=== PATIENT | male | born 1940 | race Caucasian/White ===

== ENCOUNTER 2017-09-13 12:11 | Day surgery (SDC) | payer MEDICARE ==
[2017-09-08 15:32] VITALS: BMI 27.8
[~2017-09-13 12:11] MED LIST: LIDOCAINE 1% 20 ML VIAL (10MG/ML) FOR IV START INTRADERMA PRN; MIDAZOLAM 2 MG/2 ML VIAL IV PRN
[2017-09-13 14:02] VITALS: RESP 16; TEMP 97.7
[2017-09-13] MEDS: LACTATED RINGERS 1,000 ML IV SCH ×2 (14:02→14:45)
[2017-09-13] MEDS ORDERED: LIDOCAINE 1% 20 ML VIAL (10MG/ML) FOR IV START INTRADERMA ONE (14:02)
[2017-09-13] MEDS ORDERED: ePHEDrine SULFATE/0.9% NACL/PF 50 MG/5 ML SYRINGE IV ONE (14:47)
[2017-09-13] MEDS ORDERED: PROPOFOL 10 MG/ML 20 ML VIAL IV ONE (14:47)
--- NOTE | 2017-09-13 15:27 | P.PCN ---
Date of Procedure: 09/13/17 Procedure(s) Performed: Procedure: Colonoscopy and polypectomy. Preoperative diagnosis: Screening for neoplasia patient has history of polyps. Postoperative diagnosis: 1. Sigmoid diverticulosis with no evidence of acute diverticulitis or strictures. 2. Flat benign appearing polyp around the hepatic flexure snared and removed piecemeal but no large polyps or cancer. Preparation: HalfLytely prep. Sedation: Was provided by anesthesia. Brief clinical history: The patient is a 77-year-old male who is scheduled for this evaluation for screening for neoplasia because of history of polyps. His last exam was more than 10 years ago. The patient has no abdominal complaints, bleeding or anemia. This would be his third exam. Procedure: With the patient on his left lateral decubitus position and after informed consent and adequate sedation, the perianal area was inspected and it did not show any fissures or fistulas. There were no masses felt on digital rectal examination. The Olympus CFQ 160L scope was then inserted in the rectum in the usual fashion and advanced to the cecum. There were multiple diverticular orifices seen scattered in the sigmoid with no evidence of acute diverticulitis or strictures. The mucosa appeared healthy. Around the hepatic flexure, there was a benign looking flat polypoid area measuring around 3 cm in largest dimension. I was able to remove it piecemeal with good hemostasis. No other polyps or tumors were seen. I retroflexed the endoscope in the rectum before the endoscope was withdrawn. The patient tolerated the procedure well. Plan: The patient was reassured. Will await pathology results and make further plans based on his course and pathology results. Discussed dietary measures. He will follow up with you as planned.
[2017-09-13 15:41] VITALS: PULSE 72
[2017-09-13 15:53] VITALS: BP 109/68
== END 2017-09-13 16:01 | disposition home or self-care (01) ==
LOC: ORWHC2ENDO 12:11
DX: Z12.11 Encounter for screening for malignant neoplasm of colon (principal); K63.5 Polyp of colon; K57.30 Diverticulosis of large intestine without perforation or abscess without bleeding; Z86.010 Personal history of colon polyps; I10 Essential (primary) hypertension; E78.5 Hyperlipidemia, unspecified; Z85.828 Personal history of other malignant neoplasm of skin; F17.200 Nicotine dependence, unspecified, uncomplicated; N40.0 Benign prostatic hyperplasia without lower urinary tract symptoms; Z79.82 Long term (current) use of aspirin; Z79.899 Other long term (current) drug therapy
CPT/HCPCS: 88305; 45385; J2704

== ENCOUNTER → 2018-04-13 | Outpatient (CLI) | payer MEDICARE ==
--- NOTE | 2018-04-13 10:28 | CT ---
EXAMINATION TYPE: CT angio thor/abd pel aorta DATE OF EXAM: 04/13/2018 COMPARISON: 03/22/2017 and 03/02/2016 HISTORY: Pt stated annual scan for AAA w/o mention of rupture CT DLP: 1578.20 mGycm. Automated Exposure Control for Dose Reduction was Utilized. CONTRAST: CT scan of the thorax, abdomen and pelvis is performed with IV Contrast, patient injected with 80 mL of Isovue 370. FINDINGS: VASCULATURE: The unenhanced images demonstrate no evidence of intramural hematoma. Aortic root is not dilated measuring up to 3.4 cm ascending thoracic aorta is within normal limits measuring 3.3 cm. Th ere is a conventional three-vessel branch pattern of the aortic arch. There is tortuosity of the desc ending thoracic aorta. The upper thoracic aorta is within normal limits measuring 3.1 cm with moderat e atherosclerosis. However just distal to the inferior left pulmonary vein the descending thoracic ao rta takes a sharp turn medially and demonstrates mild aneurysmal dilatation measuring 4.0 cm. At the diaphragmatic hiatus the descending thoracic aorta measures up to 5.8 cm in transverse dimension and 5.0 cm in anterior posterior dimension, and increased from the prior exam where this measured approxi mately 5.5 cm x 4.8 cm. Within the aorta at this location there is moderate to severe right posterior lateral eccentric noncalcific mural plaquing. Just distal to the superior mesenteric artery before the origin of the endograft at the level of the renal arteries there begins a bilobed saccular abdominal aortic aneurysm measuring up to 5.7 x 5.5 cm . When measured in a similar fashion and a similar location on the prior exam there is no interval ch carmen. Just distal to this begins an aortic endograft appearing normal in caliber with contrast throug hout. No evidence of distal occlusion is seen although there is a diminutive caliber of the left inte rnal iliac artery and severe atherosclerosis of the infrarenal abdominal aorta and its branches. LUNGS: The lungs are grossly clear, there is no concerning parenchymal mass or nodule identified. T here is no pleural effusion or pneumothorax seen. The tracheobronchial tree is patent. MEDIASTINUM: There are no greater than 1 cm hilar or mediastinal lymph nodes. No pericardial effusi on is seen. Severe coronary artery calcifications are seen, marker of coronary artery disease. LIVER/GB: There is 7 mm arterial enhancing lesion within the hepatic dome in segment 7 on image 52 un changed from the prior likely representing a flash filling hemangioma. Linear subcapsular vague enhan cement is also seen on image 59 posterior medially likely related to an arterial portal shunt, not pr esent on the prior. Remainder of the liver in the angiographic phase is grossly unremarkable. Angiogr aphic phase does limit evaluation for masses. No masses are seen in the delayed portal venous phase o ther than the previously mentioned probable hemangioma. Cholelithiasis is present. PANCREAS: No significant abnormality is seen. SPLEEN: No significant abnormality is seen. ADRENALS: There is similar thickening of the adrenal glands, left greater than right without focal no dularity. Adrenals maintain their normal adreniform shape therefore finding is likely related to to b enign adrenal gland hyperplasia. KIDNEYS: Kidneys enhance and excrete symmetrically without hydronephrosis. BOWEL: Descending duodenal diverticulum is incidentally noted. LYMPH NODES: No greater than 1cm abdominal or pelvic lymph nodes are appreciated. OSSEOUS STRUCTURES: Similar-appearing lucent lesion within the left acetabulum could be degenerative. Scattered punctate sclerotic foci likely represent bone islands. Degenerative changes of the spine a re noted. OTHER: Right lateral eccentric urinary bladder wall thickening measures up to 6 mm on series 9 image 114 and is also seen on additional images. There is nodular impression on the inferior urinary bladde r by an enlarged and heterogenous prostate gland. On liver windows on series 9 image 119 and 120 ther e is hyperemia/enhancement of the lateral base of the prostate gland. IMPRESSION: 1. Increasing size of the descending thoracic aortic aneurysm at the diaphragmatic hiatus measuring 5 .8 cm and previously measuring 5.5 cm. 2. Stable bilobed abdominal aortic aneurysm measuring up to 5.7 cm when measured in a similar fashion to the prior exam for comparison. No evidence of endoleak. 2. Enhancing focus within the left lateral prostate gland base. Correlate with PSA. MRI prostate coul d also be considered. 3. Right eccentric urinary bladder wall thickening. Urinalysis is recommended. If there is further co ncern direct visualization could be performed. 4. Stable hepatic lesion favored to represent a flash filling hemangioma and new linear arterial enha ncing focus likely representing a subcapsular arterial portal shunt. 5. Cholelithiasis.
== END ==
LOC: RADCTMAIN 06:33
PROVIDERS: ATTEND Thoracic Surgery (Cardiothoracic Vascular Surgery)
DX: I71.4 Abdominal aortic aneurysm, without rupture (principal); I71.2 Thoracic aortic aneurysm, without rupture; N32.89 Other specified disorders of bladder; K76.9 Liver disease, unspecified; K80.20 Calculus of gallbladder without cholecystitis without obstruction
CPT/HCPCS: 82565; 84520; 71275; 36415; 74174; Q9967

== ENCOUNTER → 2018-11-13 | Outpatient (CLI) | payer MEDICARE ==
--- NOTE | 2018-11-13 10:42 | CT ---
EXAMINATION TYPE: CT angio thor/abd pel aorta DATE OF EXAM: 11/13/2018 COMPARISON: CTA aorta April 13, 2018. HISTORY: Abdominal aortic aneurysm without rupture CT DLP: 386.3 mGycm. Automated Exposure Control for Dose Reduction was Utilized. CONTRAST: CTA scan of the thorax, abdomen and pelvis is performed with IV Contrast, patient injected with 80 mL of Isovue 370. Three-D reconstructed images are created on independent workstation and reviewed FINDINGS: VASCULAR: There is satisfactory enhancement of the central pulmonary arteries. Ascending aorta measures up to 3.2 cm in diameter axial image 20. There is moderate peripheral mixed plaque in the aortic arch with slight ectasia distal to the three-vessel takeoff measuring 2.7 cm axi al image 9. Three-vessel show no significant focal stenosis. There is moderate mixed plaque in the de scending thoracic aorta which is tortuous course. Aneurysmal change distally just above diaphragm rem ains present measuring 3.8 cm axial image 33 not significantly changed from prior study image 42. There is second aneurysm of the proximal abdominal aorta at level of diaphragm measuring 5.6 cm trans versely by 5.3 cm AP diameter with moderate right and posterior peripheral noncalcified plaque. There is then more significant stenosis and narrowing with second aneurysm of the midabdominal aorta measu ring 5.2 x 5.7 cm transversely axial image 63 not significant change from prior. There is persistent patency of the celiac artery and SMA as well as bilateral single renal arteries with suspected occlud ed JOSE DAVID. Fairly moderate to severe calcified plaque is redemonstrated. Below this there is graft material felt present which is patent. There is severely calcified plaque i n the common iliac arteries bilaterally making evaluation suboptimal. Significant stenosis in the pro ximal right internal carotid artery is likely present. There is likely significant stenosis near bifu rcation on the left into common and internal iliac arteries extending into internal iliac artery axia l image 90. Moderate to severe calcified plaque extends into internal and external iliac arteries [place] aterally with moderate plaque seen at common femoral artery in the bilateral groin. LUNGS: Mild to moderate underlying emphysematous change with right basilar patchy opacities consisten t with atelectasis and/or infiltrate more prominent from prior study as there is peribronchial wall t hickening. Correlate clinically for acute bronchiolitis. No pleural effusion or pneumothorax. MEDIASTINUM: There are no greater than 1 cm hilar or mediastinal lymph nodes. No pericardial effus ion is seen. Moderate to severe coronary artery calcification is redemonstrated which is noted marke r underlying coronary artery disease. OTHER: No additional significant abnormality is seen. LIVER/GB: Dependent small gallstones and gallbladder are present. Stable subcentimeter hyperdense foc us right hepatic dome axial image 43 favoring flash filling hemangioma. PANCREAS: No significant abnormality is seen. SPLEEN: No significant abnormality is seen. ADRENALS: Low dense thickening to both adrenal glands consistent with benign lipid rich hyperplasia i s identified. KIDNEYS: No significant abnormality is seen. BOWEL: Diverticula in the left and sigmoid colon are redemonstrated. GENITAL ORGANS: Prostate gland not included on this study LYMPH NODES: No greater than 1cm abdominal lymph nodes are appreciated. OSSEOUS STRUCTURES: Moderate disc space narrowing L5-S1 level redemonstrated multilevel spurring in t he thoracic spine again seen. OTHER: No significant additional abnormality is seen. IMPRESSION: 1. Persistent multifocal aneurysm without significant interval change. Significant focal stenosis als o noted between aneurysm sacs. Consider endovascular surgical referral or consultation if has not bee n performed to assess for new stent graft. Significant stenosis origin right common iliac artery felt present.
== END | disposition home or self-care (01) ==
LOC: RADCTMAIN 07:08
PROVIDERS: ATTEND Thoracic Surgery (Cardiothoracic Vascular Surgery)
DX: I77.1 Stricture of artery (principal); I71.4 Abdominal aortic aneurysm, without rupture; I71.6 Thoracoabdominal aortic aneurysm, without rupture
CPT/HCPCS: 82565; 84520; 71275; 36415; 74174; Q9967

== ENCOUNTER → 2019-05-14 | Outpatient (CLI) | payer MEDICARE ==
--- NOTE | 2019-05-14 15:06 | CT ---
EXAMINATION TYPE: CT angio abdomen pelvis DATE OF EXAM: 05/14/2019 COMPARISON: 11/13/2018 HISTORY: Follow up for abdominal aortic aneurysm. CT DLP: 1636 mGycm CONTRAST: CTA thoracic and abdominal aorta with 3-D reconstruction is performed without Oral Contrast and witho ut and with IV Contrast, patient injected with 80ml mL of Isovue 370. Contrast CTA of the abdominal aorta was performed from the lung bases through the base of the pelvis. 3-D reconstruction imaging obtained at a separate workstation. CONTRAST CT ABDOMEN AND PELVIS ABDOMINAL AORTA: Ectasia distal thoracic aorta. At the level of the aortic hiatus the abdominal aorta measures 5.3 cm AP dimension. Infrarenal abdominal aortic aneurysm measures 5.6 cm. Mural thrombus n oted. No evidence for dissection. Iliac vessels are ectatic although Nonaneurysmal. LIVER/GB-layering gallstones noted. Hepatic hemangioma at the dome of the liver and measures 8 mm. PANCREAS- No significant abnormality is seen. SPLEEN- No significant abnormality is seen. ADRENALS- No significant abnormality is seen. KIDNEYS/BLADDER- No significant abnormality is seen. BOWEL- No Significant abnormality GENITAL ORGANS: No gross abnormality seen. LYMPH NODES- No greater than 1cm abdominal or pelvic lymph nodes are appreciated. OSSEOUS STRUCTURES- No significant abnormality is seen. OTHER- No significant abnormality is seen. IMPRESSION- Abdominal aortic aneurysm as described above without evidence for complicating factor dissection.
== END | disposition home or self-care (01) ==
LOC: RADCTMAIN 13:28
PROVIDERS: ATTEND Thoracic Surgery (Cardiothoracic Vascular Surgery)
DX: I71.4 Abdominal aortic aneurysm, without rupture (principal)
CPT/HCPCS: 82565; 84520; 36415; 74174; Q9967

== ENCOUNTER → 2020-04-16 | Outpatient (CLI) | payer MEDICARE ==
--- NOTE | 2020-04-16 15:55 | US ---
EXAMINATION TYPE: US kidneys/renal and bladder DATE OF EXAM: 04/16/2020 COMPARISON: CT CLINICAL HISTORY: R10.9 Right Flank Pain. Pt states flank pain EXAM MEASUREMENTS: Right Kidney: 10.2 x 5.4 x 5.2 cm Left Kidney: 10.7 x 4.8 x 3.8 cm Post Void Residual Volume: 685 mL Right Kidney: Mild hydro Left Kidney: Mild hydro Bladder: [place] distended, pt states no urge to urinate Bilateral Jets seen: No Normal Post Void Residual: No Pt has known AAA, visualized= 5.8 cm Incidental finding gallstones No nephrolithiasis is seen. No masses are identified. The urinary bladder is anechoic. Bilateral u reteral jets are seen. IMPRESSION: Bilateral hydronephrosis.
== END | disposition home or self-care (01) ==
LOC: RADUSWWP 15:23
PROVIDERS: ATTEND Internal Medicine
DX: N13.30 Unspecified hydronephrosis (principal)
CPT/HCPCS: 76770

== ENCOUNTER → 2020-06-02 | Outpatient (CLI) | payer MEDICARE ==
--- NOTE | 2020-06-02 10:35 | CT ---
EXAMINATION TYPE: CT angio abdomen DATE OF EXAM: 06/02/2020 COMPARISON: CTA aorta May 14, 2019 HISTORY: AAA with prior surgical repair. CT DLP: 925.7 mGycm, Automated Exposure Control for Dose Reduction was Utilized. CONTRAST: CTA scan of the abdomen and pelvis is performed with a oral and without and with IV Contrast, patient injected with 80 mL of Isovue 370. Aneurysm protocol with 3-D reconstructive images created on an in dependent workstation and reviewed. FINDINGS: VASCULAR: There is aneurysm of the descending thoracic aorta redemonstrated. Aneurysm measures up to 6.0 cm transversely at level of diaphragmatic hiatus axial image 12 series 6 not significantly change d from prior. There is patent celiac artery and SMA with persistent significant plaque, there is more prominent mixed plaque at origin of celiac artery causing significant stenosis peripheral and sagitt al image 60 series 16. Stenosis approaching 50% in the SMA not progressed from prior. Just inferior t o this there is surgical change redemonstrated, there is aneurysmal up to 6.5 cm transversely axial i mage 27 increased from 6.0 cm on prior study. Aneurysm 6.5 cm confirmed coronal image 15 versus 6.0 c m prior study. Graft below this shows no aneurysm. Patency is identified. There is more severe calcif ied plaque in the common iliac arteries bilaterally with more moderate plaque in the internal/externa l iliac arterial branches with more moderate to severe plaque in the femoral branches in the bilatera l groin region. No new aneurysm is evident. LUNG BASES: No significant abnormality is appreciated. LIVER/GB: Dependent small stones are redemonstrated. Stable tiny hypodense focus posterior right hepa tic dome image 9 series 6 presumed benign. PANCREAS: No significant abnormality is seen. SPLEEN: No significant abnormality is seen. ADRENALS: No significant abnormality is seen. KIDNEYS: New moderate bilateral hydronephrosis. There is hydroureter. Bladder is greatly distended wi th mild to moderate concentric wall thickening. BOWEL: No significant abnormality is seen. PROSTATE/SEMINAL VESICLES: Enlarged prostate gland consistent with BPH. Scattered bilateral pelvic ph leboliths. LYMPH NODES: No greater than 1cm abdominal or pelvic lymph nodes are appreciated. OSSEOUS STRUCTURES: Mild/moderate multilevel spurring. [id number] disc space narrowing lumbosac ral junction redemonstrated. OTHER: No significant additional abnormality is seen. IMPRESSION: 1. Enlarging 6.5 cm abdominal aortic aneurysm just below level of surgical clips from 6.0 cm. Just pr oximal to the surgical site there is worsening atherosclerotic change causing significant stenosis in the celiac artery at its origin versus most recent prior. 2. New moderate bilateral hydronephrosis without obstructing mass or calculus. Bladder shows mild to moderate wall thickening. Findings may be related to bladder infection with vesicoureteral reflux. Co rrelate clinically.
== END | disposition home or self-care (01) ==
LOC: RADCTMAIN 08:16
PROVIDERS: ATTEND Thoracic Surgery (Cardiothoracic Vascular Surgery)
DX: I71.4 Abdominal aortic aneurysm, without rupture (principal); N13.30 Unspecified hydronephrosis; N32.89 Other specified disorders of bladder; I77.4 Celiac artery compression syndrome
CPT/HCPCS: 82565; 84520; 74175; 36415; Q9967

== ENCOUNTER → 2020-07-23 | Outpatient (CLI) | payer MEDICARE ==
--- NOTE | 2020-07-23 11:19 | CT ---
EXAMINATION TYPE: CT abdomen pelvis w con DATE OF EXAM: 07/23/2020 COMPARISON: 06/02/2020 HISTORY: Prostate CA CT DLP: 549.5 mGycm Automated exposure control for dose reduction was used. CONTRAST: CT scan of the abdomen pelvis is performed with IV Contrast, patient injected with 100 mL of Isovue 3 00. FINDINGS- VASCULAR: There is aneurysm of the descending thoracic aorta redemonstrated. Aneurysm measures up to 6.5 cm and previously measured 6.0 cm transversely at level of diaphragmatic hiatus . There is patent celiac artery and SMA with persistent significant plaque, there is more prominent mixed plaque at or igin of celiac artery causing significant stenosis peripheral . Stenosis approaching 50% in the SMA not progressed from prior. Just inferior to this there is surgica l change redemonstrated, there is aneurysmal up to 6.7 cm transversely increased from 6.5 cm on prior study. Aneurysm 6.5 cm confirmed versus 6.0 cm prior study. Graft below this shows no aneurysm. Patency is identified. There is more severe calcified plaque in t he common iliac arteries bilaterally with more moderate plaque in the internal/external iliac arteria l branches with more moderate to severe plaque in the femoral branches in the bilateral groin region. Suspect significant stenosis involving the common iliac, common femoral arteries. There is mild bilateral hydronephrosis and hydroureter. There is bladder wall thickening which may be en the basis of chronic cystitis. No renal calcification seen. Cholelithiasis noted. The spleen is homogeneous in attenuation. Lung bases clear. Hyperdense lesion i nvolving the liver too small to characterize may represent flash hemangioma measuring 5 mm. Adrenal glands normal morphology. Bowel gas pattern nonspecific. No evidence of obstruction. Prostate gland is enlarged. Hypertrophic and degenerative changes of the spine noted. Small soft tissue subce ntimeter attenuations in the mesentery of the left abdomen are nonspecific but stable. IMPRESSION- 1. Abdominal aortic aneurysm appears represent extension of the thoracic aortic aneurysm now measurin g 6.5 cm at the hiatus and previously measuring 6 cm. Intra-abdominal component extends just above th e level the bifurcation with evidence of previous surgery. Maximal dimension measures 6.7 cm and prev iously measured 6.5 cm. Suspect significant stenosis involving the bilateral common iliac and common femoral arteries. 2. Cholelithiasis. 3. Stable. SMA stenosis. 4. Small focal areas of soft tissue attenuation in the mesentery of the left abdomen measuring a cent imeter or less too small to characterize could represent small mesenteric lymph nodes and should be f ollowed on short-term follow-up exam to exclude other etiologies including mesenteric deposits. 5. Bilateral hydronephrosis with hydroureter. No definite calcification. Bladder wall is thickened. C orrelate for cystitis. 6. Prostate is somewhat irregular in shape and enlarged compatible with the patient's history of pros johns carcinoma. 7. Probable tiny flash hemangioma of the hepatic dome. There are 7 there is mild sclerosis involving the sacrum. There is degenerative disc disease at this level the finding could be discogenic. Recomme nd bone scan given the patient's history.
--- NOTE | 2020-07-23 16:15 | NM ---
EXAMINATION TYPE: NM bone scan whole body DATE OF EXAM: 07/23/2020 COMPARISON: CT same date HISTORY: C61 Delayed whole-body scanning was performed following the injection of 23.6 mCi Tc 99m MDP. Images acq uired 3.5 hours post injection. FINDINGS: There is prominence of the renal collecting systems, urinary bladder likely due to chronic outlet obs truction. Therapeutic area at the right knee is likely due to prior knee arthroplasty. Uptake in the feet, shoulders, sternoclavicular joints is likely due to arthropathy. Mild uptake noted in the cervi fernando spine, lumbar spine may be due to degenerative disc change. No definite area of abnormal increase d or decreased uptake to suggest metastatic disease. IMPRESSION: Metastatic disease is not evident.
== END | disposition home or self-care (01) ==
LOC: RADCTMAIN 08:51
PROVIDERS: ATTEND Urology
DX: C61 Malignant neoplasm of prostate (principal); I71.2 Thoracic aortic aneurysm, without rupture; I71.4 Abdominal aortic aneurysm, without rupture; K80.20 Calculus of gallbladder without cholecystitis without obstruction; N13.30 Unspecified hydronephrosis; M89.8X8 Other specified disorders of bone, other site; Z98.890 Other specified postprocedural states
CPT/HCPCS: 82565; 84520; 74177; 36415; 78306; A9503; Q9967

== ENCOUNTER 2022-01-01 09:23 | Inpatient (IN) | payer MEDICARE ==
[2022-01-01] MEDS ORDERED: SODIUM CHLORIDE 0.9% 500 ML 500 ML IV STA (09:32)
[2022-01-01] MEDS ORDERED: SODIUM CHLORIDE 0.9% 1,000 ML IV STA (09:32)
[2022-01-01 09:46] LABS: Glucose,Whole Blood 105 mg/dL (70-110)
--- NOTE | 2022-01-01 09:50 | ED ---
General Adult HPI - General Chief complaint: Weakness Stated complaint: weakness Time Seen by Provider: 01/01/22 09:25 Source: patient, EMS, RN notes reviewed, old records reviewed Mode of arrival: EMS Limitations: no limitations, altered mental status - History of Present Illness Initial comments: This is a 49-year-old male who presents emergency department for generalized weakness. EMS states his been ongoing and getting worse over the last week and a half. Patient is a poor historian. Patient states he does have a history of high blood pressure but he did not take any of his high blood pressure medication today. Patient states he did take his pain medication. Patient denies any chest pain difficulty breathing shortness of breath. Patient denies headache patient denies numbness or weakness. Patient states he doesn't feel that bad currently. According to EMS patient was unable to stand at the home and he was so lightheaded there that he sat himself down the ground when they arrived as with a found him and he was not finding of any injuries. Patient denies any abdominal pain patient denies nausea vomiting but states he does have chronic diarrhea. - Related Data Home Medications Medication Instructions Recorded Confirmed Atorvastatin [Lipitor] 80 mg PO DAILY 09/08/17 01/01/22 Tamsulosin HCl [Flomax] 0.4 mg PO BID 09/08/17 01/01/22 atenoloL 25 mg PO DAILY 09/08/17 01/01/22 lisinopriL [Zestril] 20 mg PO DAILY 09/08/17 01/01/22 Aspirin EC [Ecotrin Low Dose] 81 mg PO DAILY 01/01/22 01/01/22 Cyclobenzaprine [Flexeril] 10 mg PO HS PRN 01/01/22 01/01/22 Dutasteride 0.5 mg PO DAILY 01/01/22 01/01/22 HYDROcodone/APAP 5-325MG [[place] 1 tab PO TID PRN 01/01/22 01/01/22 5-325] Allergies Allergy/AdvReac Type Severity Reaction Status Date / Time No Known Allergies Allergy Verified 01/01/22 11:11 Review of Systems ROS Statement: Those systems with pertinent positive or pertinent negative responses have been documented in the HPI. ROS Other: All systems not noted in ROS Statement are negative. Past Medical History Past Medical History: Cancer, Hyperlipidemia, Hypertension Additional Past Medical History / Comment(s): HX SKIN CANCER, DIFFICULTY URINATING AT NIGHT., AAA. History of Any Multi-Drug Resistant Organisms: None Reported Past Surgical History: Heart Catheterization With Stent, Orthopedic Surgery Additional Past Surgical History / Comment(s): PARTIAL RIGHT KNEE, HEART CATH (APPROX 20 YRS AGO) Past Anesthesia/Blood Transfusion Reactions: No Reported Reaction Date of Last Stent Placement:: ?1997 Past Psychological History: No Psychological Hx Reported Smoking Status: Former smoker Past Alcohol Use History: Rare Past Drug Use History: None Reported - Past Family History Father Family Medical History: Cancer Additional Family Medical History / Comment(s): SKIN CA Brother(s) Family Medical History: Cancer Additional Family Medical History / Comment(s): SKIN CANCER General Exam - General Exam Comments Initial Comments: GENERAL: Patient is well-developed and well-nourished. Patient is nontoxic and well- hydrated and is in mild distress. ENT: Neck is soft and supple. No significant lymphadenopathy is noted. Oropharynx is clear. Dry mucous membranes. Neck has full range of motion without eliciting any pain. EYES: The sclera were anicteric and conjunctiva were pink and moist. Extraocular movements were intact and pupils were equal round and reactive to light. Eyelids were unremarkable. PULMONARY: Unlabored respirations. Good breath sounds bilaterally. No audible rales rhonchi or wheezing was noted. CARDIOVASCULAR: There is a regular rate and rhythm without any murmurs gallops or rubs. ABDOMEN: Soft and nontender with normal bowel sounds. SKIN: Skin is clear with no lesions or rashes and otherwise unremarkable. NEUROLOGIC: Patient is alert and oriented x3. Cranial nerves II through XII are grossly intact. Motor and sensory are also intact. Normal speech, volume and content. Symmetrical smile. MUSCULOSKELETAL: Normal extremities with adequate strength and full range of motion. LYMPHATICS: No significant lymphadenopathy is noted PSYCHIATRIC: Normal psychiatric evaluation. Limitations: no limitations, altered mental status Course Vital Signs 01/01/22 01/01/22 01/01/22 09:24 10:10 11:00 Temperature 99.6 F Pulse Rate 65 61 62 Respiratory 16 18 16 Rate Blood Pressure 65/38 71/44 88/57 O2 Sat by Pulse 85 L 99 Oximetry 01/01/22 01/01/22 01/01/22 11:30 12:07 12:30 Temperature Pulse Rate 60 65 56 L Respiratory 14 18 16 Rate Blood Pressure 77/50 76/52 69/42 O2 Sat by Pulse 93 L 96 99 Oximetry 01/01/22 14:12 Temperature Pulse Rate 62 Respiratory 16 Rate Blood Pressure 92/55 O2 Sat by Pulse 96 Oximetry Medical Decision Making - Medical Decision Making EKG shows sinus rhythm at 60 bpm NJ interval is on a 32 QRS is 89 QT intervals 470 QTC is 408. Patient's urine came back and showed an infection at 12:30. At this point time I started the patient on Rocephin [address] Craft came down and saw the patient. Patient was receiving a third liter of fluid. He did not want the patient to go to intensive care at this time and see how he responds to the hydrocortisone fluids and antibiotics Patient's had a repeat EKG because it looked irregular on the monitor. Patient's EKG showed sinus rhythm with frequent PACs at 61 bpm NJ interval 131 QRS is 93 QT intervals 417 QTC is 420. Patient's EKG shows no ST segment elevation or depression. Patient's pulse ox was in the high 90s throughout his whole stay. Echo showed ejection fraction 55%. I spoke with Dr. Simon any she agreed to admit the patient - Lab Data Result diagrams: 01/01/22 09:37 01/01/22 09:37 Lab Results 01/01/22 01/01/22 01/01/22 Range/Units 09:37 09:37 09:37 WBC 6.7 (3.8-10.6) k/uL RBC 3.17 L (4.30-5.90) m/uL Hgb 9.7 L (13.0-17.5) gm/dL Hct 32.4 L (39.0-53.0) % MCV 102.2 H (80.0-100.0) fL MCH 30.5 (25.0-35.0) pg MCHC 29.9 L (31.0-37.0) g/dL RDW 14.8 (11.5-15.5) % Plt Count 174 (150-450) k/uL MPV 9.8 Neutrophils % 88 % Lymphocytes % 4 % Monocytes % 6 % Eosinophils % 0 % Basophils % 0 % Neutrophils # 5.9 (1.3-7.7) k/uL Lymphocytes # 0.3 L (1.0-4.8) k/uL Monocytes # 0.4 (0-1.0) k/uL Eosinophils # 0.0 (0-0.7) k/uL Basophils # 0.0 (0-0.2) k/uL Hypochromasia Marked Macrocytosis Slight PT 14.7 H (9.0-12.0) sec INR 1.4 H (<1.2) APTT 27.9 (22.0-30.0) sec Sodium 144 (137-145) mmol/L Potassium 5.6 H (3.5-5.1) mmol/L Chloride 116 H (98-107) mmol/L Carbon Dioxide 20 L (22-30) mmol/L Anion Gap 8 mmol/L BUN 79 H (9-20) mg/dL Creatinine 3.30 H (0.66-1.25) mg/dL Est GFR (CKD-EPI)AfAm 19 (>60 ml/min/1.73 sqM) Est GFR (CKD-EPI)NonAf 17 (>60 ml/min/1.73 sqM) Glucose 112 H (74-99) mg/dL POC Glucose (mg/dL) (70-110) mg/dL POC Glu Agency Development Manager ID Lactic Ac Sepsis Rflx Plasma Lactic Acid Gigi (0.7-2.0) mmol/L Calcium 7.6 L (8.4-10.2) mg/dL Magnesium (1.6-2.3) mg/dL Total Bilirubin 0.3 (0.2-1.3) mg/dL AST 117 H (17-59) U/L ALT 96 H (4-49) U/L Alkaline Phosphatase 142 H (38-126) U/L Troponin I (0.000-0.034) ng/mL NT-Pro-B Natriuret Pep pg/mL Total Protein 4.7 L (6.3-8.2) g/dL Albumin 2.2 L (3.5-5.0) g/dL Urine Color Urine Appearance (Clear) Urine pH (5.0-8.0) Ur Specific [place] (1.001-1.035) Urine Protein (Negative) Urine Glucose (UA) (Negative) Urine Ketones (Negative) Urine Blood (Negative) Urine Nitrite (Negative) Urine Bilirubin (Negative) Urine Urobilinogen (<2.0) mg/dL Ur Leukocyte Esterase (Negative) Urine RBC (0-5) /hpf Urine WBC (0-5) /hpf Urine WBC Clumps (None) /hpf Urine Bacteria (None) /hpf Urine Mucus (None) /hpf Coronavirus (PCR) (Not Detectd) 01/01/22 01/01/22 01/01/22 Range/Units 09:37 09:37 09:37 WBC (3.8-10.6) k/uL RBC (4.30-5.90) m/uL Hgb (13.0-17.5) gm/dL Hct (39.0-53.0) % MCV (80.0-100.0) fL MCH (25.0-35.0) pg MCHC (31.0-37.0) g/dL RDW (11.5-15.5) % Plt Count (150-450) k/uL MPV Neutrophils % % Lymphocytes % % Monocytes % % Eosinophils % % Basophils % % Neutrophils # (1.3-7.7) k/uL Lymphocytes # (1.0-4.8) k/uL Monocytes # (0-1.0) k/uL Eosinophils # (0-0.7) k/uL Basophils # (0-0.2) k/uL Hypochromasia Macrocytosis PT (9.0-12.0) sec INR (<1.2) APTT (22.0-30.0) sec Sodium (137-145) mmol/L Potassium (3.5-5.1) mmol/L Chloride (98-107) mmol/L Carbon Dioxide (22-30) mmol/L Anion Gap mmol/L BUN (9-20) mg/dL Creatinine (0.66-1.25) mg/dL Est GFR (CKD-EPI)AfAm (>60 ml/min/1.73 sqM) Est GFR (CKD-EPI)NonAf (>60 ml/min/1.73 sqM) Glucose (74-99) mg/dL POC Glucose (mg/dL) (70-110) mg/dL POC Glu Agency Development Manager ID Lactic Ac Sepsis Rflx Plasma Lactic Acid Gigi 2.6 H* (0.7-2.0) mmol/L Calcium (8.4-10.2) mg/dL Magnesium 1.5 L (1.6-2.3) mg/dL Total Bilirubin (0.2-1.3) mg/dL AST (17-59) U/L ALT (4-49) U/L Alkaline Phosphatase (38-126) U/L Troponin I 0.330 H* (0.000-0.034) ng/mL NT-Pro-B Natriuret Pep pg/mL Total Protein (6.3-8.2) g/dL Albumin (3.5-5.0) g/dL Urine Color Urine Appearance (Clear) Urine pH (5.0-8.0) Ur Specific [place] (1.001-1.035) Urine Protein (Negative) Urine Glucose (UA) (Negative) Urine Ketones (Negative) Urine Blood (Negative) Urine Nitrite (Negative) Urine Bilirubin (Negative) Urine Urobilinogen (<2.0) mg/dL Ur Leukocyte Esterase (Negative) Urine RBC (0-5) /hpf Urine WBC (0-5) /hpf Urine WBC Clumps (None) /hpf Urine Bacteria (None) /hpf Urine Mucus (None) /hpf Coronavirus (PCR) (Not Detectd) 01/01/22 01/01/22 01/01/22 Range/Units 09:37 09:44 09:48 WBC (3.8-10.6) k/uL RBC (4.30-5.90) m/uL Hgb (13.0-17.5) gm/dL Hct (39.0-53.0) % MCV (80.0-100.0) fL MCH (25.0-35.0) pg MCHC (31.0-37.0) g/dL RDW (11.5-15.5) % Plt Count (150-450) k/uL MPV Neutrophils % % Lymphocytes % % Monocytes % % Eosinophils % % Basophils % % Neutrophils # (1.3-7.7) k/uL Lymphocytes # (1.0-4.8) k/uL Monocytes # (0-1.0) k/uL Eosinophils # (0-0.7) k/uL Basophils # (0-0.2) k/uL Hypochromasia Macrocytosis PT (9.0-12.0) sec INR (<1.2) APTT (22.0-30.0) sec Sodium (137-145) mmol/L Potassium (3.5-5.1) mmol/L Chloride (98-107) mmol/L Carbon Dioxide (22-30) mmol/L Anion Gap mmol/L BUN (9-20) mg/dL Creatinine (0.66-1.25) mg/dL Est GFR (CKD-EPI)AfAm (>60 ml/min/1.73 sqM) Est GFR (CKD-EPI)NonAf (>60 ml/min/1.73 sqM) Glucose (74-99) mg/dL POC Glucose (mg/dL) 105 (70-110) mg/dL POC Glu Agency Development Manager ID Radha Busby Lactic Ac Sepsis Rflx Plasma Lactic Acid Gigi (0.7-2.0) mmol/L Calcium (8.4-10.2) mg/dL Magnesium (1.6-2.3) mg/dL Total Bilirubin (0.2-1.3) mg/dL AST (17-59) U/L ALT (4-49) U/L Alkaline Phosphatase (38-126) U/L Troponin I (0.000-0.034) ng/mL NT-Pro-B Natriuret Pep 90652 pg/mL Total Protein (6.3-8.2) g/dL Albumin (3.5-5.0) g/dL Urine Color Urine Appearance (Clear) Urine pH (5.0-8.0) Ur Specific [place] (1.001-1.035) Urine Protein (Negative) Urine Glucose (UA) (Negative) Urine Ketones (Negative) Urine Blood (Negative) Urine Nitrite (Negative) Urine Bilirubin (Negative) Urine Urobilinogen (<2.0) mg/dL Ur Leukocyte Esterase (Negative) Urine RBC (0-5) /hpf Urine WBC (0-5) /hpf Urine WBC Clumps (None) /hpf Urine Bacteria (None) /hpf Urine Mucus (None) /hpf Coronavirus (PCR) Not Detected (Not Detectd) 01/01/22 01/01/22 01/01/22 Range/Units 10:14 11:46 12:52 WBC (3.8-10.6) k/uL RBC (4.30-5.90) m/uL Hgb (13.0-17.5) gm/dL Hct (39.0-53.0) % MCV (80.0-100.0) fL MCH (25.0-35.0) pg MCHC (31.0-37.0) g/dL RDW (11.5-15.5) % Plt Count (150-450) k/uL MPV Neutrophils % % Lymphocytes % % Monocytes % % Eosinophils % % Basophils % % Neutrophils # (1.3-7.7) k/uL Lymphocytes # (1.0-4.8) k/uL Monocytes # (0-1.0) k/uL Eosinophils # (0-0.7) k/uL Basophils # (0-0.2) k/uL Hypochromasia Macrocytosis PT (9.0-12.0) sec INR (<1.2) APTT (22.0-30.0) sec Sodium (137-145) mmol/L Potassium (3.5-5.1) mmol/L Chloride (98-107) mmol/L Carbon Dioxide (22-30) mmol/L Anion Gap mmol/L BUN (9-20) mg/dL Creatinine (0.66-1.25) mg/dL Est GFR (CKD-EPI)AfAm (>60 ml/min/1.73 sqM) Est GFR (CKD-EPI)NonAf (>60 ml/min/1.73 sqM) Glucose (74-99) mg/dL POC Glucose (mg/dL) (70-110) mg/dL POC Glu Agency Development Manager ID Lactic Ac Sepsis Rflx Y Plasma Lactic Acid Gigi 1.1 (0.7-2.0) mmol/L Calcium (8.4-10.2) mg/dL Magnesium (1.6-2.3) mg/dL Total Bilirubin (0.2-1.3) mg/dL AST (17-59) U/L ALT (4-49) U/L Alkaline Phosphatase (38-126) U/L Troponin I (0.000-0.034) ng/mL NT-Pro-B Natriuret Pep pg/mL Total Protein (6.3-8.2) g/dL Albumin (3.5-5.0) g/dL Urine Color Yellow Urine Appearance Cloudy (Clear) Urine pH 5.5 (5.0-8.0) Ur Specific [place] 1.013 (1.001-1.035) Urine Protein 1+ H (Negative) Urine Glucose (UA) Negative (Negative) Urine Ketones Negative (Negative) Urine Blood Small H (Negative) Urine Nitrite Negative (Negative) Urine Bilirubin Negative (Negative) Urine Urobilinogen <2.0 (<2.0) mg/dL Ur Leukocyte Esterase Large H (Negative) Urine RBC 9 H (0-5) /hpf Urine WBC >182 H (0-5) /hpf Urine WBC Clumps Many H (None) /hpf Urine Bacteria Many H (None) /hpf Urine Mucus Moderate H (None) /hpf Coronavirus (PCR) (Not Detectd) Critical Care Time Critical Care Time: Yes Total Critical Care Time: 35 Disposition Clinical Impression: Sepsis, Urinary tract infection, Elevated troponin Disposition: ADMITTED IP TO THIS HOSP Referrals: None,Stated [Primary Care Provider] - 1-2 days Time of Disposition: 12:33
[2022-01-01 09:54] LABS: Basophils % (A) 0 %; Eosinophils % (A) 0 %; HCT 32.4 % (39.0-53.0); HGB 9.7 gm/dL (13.0-17.5); Hypochromasia Marked; Lymphocytes # (A) 0.3 k/uL (1.0-4.8); Lymphocytes % (A) 4 %; MCH 30.5 pg (25.0-35.0); MCHC 29.9 g/dL (31.0-37.0); MCV 102.2 fL (80.0-100.0); Macrocytosis Slight; Mean Platelet Volume 9.8; Monocytes # (A) 0.4 k/uL (0-1.0); Monocytes % (A) 6 %; Neutrophils # (A) 5.9 k/uL (1.3-7.7); Neutrophils % (A) 88 %; Platelet Count 174 k/uL (150-450); RBC 3.17 m/uL (4.30-5.90); RDW 14.8 % (11.5-15.5); WBC 6.7 k/uL (3.8-10.6)
[2022-01-01 10:03] LABS: INR 1.4 (<1.2); Partial Thromboplastin Time 27.9 sec (22.0-30.0); Prothrombin Time 14.7 sec (9.0-12.0)
[2022-01-01 10:07] LABS: Albumin 2.2 g/dL (3.5-5.0); Calcium 7.6 mg/dL (8.4-10.2); Potassium 5.6 mmol/L (3.5-5.1); Total Bilirubin 0.3 mg/dL (0.2-1.3); Total Protein 4.7 g/dL (6.3-8.2)
[2022-01-01] MEDS ORDERED: SODIUM CHLORIDE 0.9% 1,000 ML IV ONE ×2 (10:15→12:38)
--- NOTE | 2022-01-01 10:20 | XR ---
EXAMINATION TYPE: XR chest 2V DATE OF EXAM: 01/01/2022 COMPARISON: CT 2014. HISTORY: Weakness. TECHNIQUE: Frontal and lateral views of the chest are obtained. FINDINGS: Background chronic emphysematous change redemonstrated. Cardiac silhouette size is upper l imits of normal with ectatic and atherosclerotic thoracic aorta redemonstrated. Some increased centra l markings bilaterally are present. Tiny bilateral pleural effusions are present on lateral view. Deg enerative change bilateral glenohumeral joints are noted. IMPRESSION: Chronic changes with new tiny bilateral pleural effusions and central opacities favoring edema over multifocal infiltrates. Correlate clinically. Suspect or favor fluid overload state.
[2022-01-01 12:23] LABS: Appearance,Urine Cloudy (Clear); Bacteria,Urine Many /hpf; Bilirubin,Urine Negative (Negative); Blood,Urine Small (Negative); Color,Urine Yellow; Glucose,Urine (UA) Negative (Negative); Ketones,Urine Negative (Negative); Leukocyte Esterase,Urine Large (Negative); Mucus,Urine Moderate /hpf; Nitrite,Urine Negative (Negative); PH, Urine 5.5 (5.0-8.0); Protein,Urine 1+ (Negative); RBC,Urine 9 /hpf (0-5); Specific Gravity,Urine 1.013 (1.001-1.035); Urobilinogen,Urine <2.0 mg/dL (<2.0); WBC,Urine >182 /hpf (0-5)
[2022-01-01] MEDS ORDERED: cefTRIAXone IN SWFI 1,000 MG/10 ML SYRINGE IVP STA ×2 (12:31→12:32)
[2022-01-01] MEDS ORDERED: HYDROCORTISONE SUCCINATE 100 MG/2 ML VIAL IV STA (13:36)
[2022-01-01] MEDS ORDERED: DOPamine DRIP 800 MG in DEXTROSE/WATER 1 250ML.BAG IV ONE (13:36)
--- NOTE | 2022-01-01 14:47 | P.CNPUL ---
History of Present Illness Consult date: 01/01/22 Requesting physician: Isa Botello Reason for consult: other Chief complaint: Sepsis. History of present illness: Pulmonary consult dated 01/01/2022 81-year-old male who was seen in the emergency room for weakness. He was seen there by Dr. Weber. The patient apparently felt weak on his feet, and had a hard time standing up, apparently feeling that she was going to pass out. EMS brought him into the emergency room where he was evaluated. He was thought to possibly have urinary tract infection/urosepsis. The patient is currently in the ER, room #6. CO2 liters of fluid, and is on 2 L of oxygen. He apparently has a history of hypertension, hyperlipidemia, and prostate cancer. He did not take his blood pressure medications today. We are asked to see him for possible admission to the intensive care unit. Currently, his blood pressure is about 90 systolic. Lab data includes a white count 6.7, hemoglobin 9.7, hematocrit 32.4, and platelet count 174,000. PT 14.7 INR 1.4. Sodium 144, potassium 5.6, chlorides 116, CO2 20, BUN 79, creatinine 3.30. Lactic acid was 2.6. Troponin was 0.330. N-terminal proBNP is 17,300. Magnesium 1.5. AST 117, ALT 96. Urine is yellow and cloudy. Blood small positive. Leukocyte esterase was large positive. There was greater than 182 WBCs, and many WBC clumps, and many bacteria. Testing for coronavirus was negative. Chest x-ray was consistent with mild fluid overload. Review of Systems REVIEW OF SYSTEMS: CONSTITUTIONAL: Weakness. NEUROLOGIC: Lightheadedness. HEENT: [ Negative.] CARDIAC: [Negative.] PULMONARY: [Negative.] GI: [Negative.] : Urinary difficulty. RHEUMATOLOGIC: [ Negative.] IMMUNOLOGIC: [ Negative.] ENDOCRINE: [Negative. ] DERMATOLOGIC: [Negative.] Past Medical History Past Medical History: Cancer, Hyperlipidemia, Hypertension Additional Past Medical History / Comment(s): HX SKIN CANCER, DIFFICULTY URINATING AT NIGHT., AAA. History of Any Multi-Drug Resistant Organisms: None Reported Past Surgical History: Heart Catheterization With Stent, Orthopedic Surgery Additional Past Surgical History / Comment(s): PARTIAL RIGHT KNEE, HEART CATH (APPROX 20 YRS AGO) Past Anesthesia/Blood Transfusion Reactions: No Reported Reaction Date of Last Stent Placement:: ?1997 Past Psychological History: No Psychological Hx Reported Smoking Status: Former smoker Past Alcohol Use History: Rare Past Drug Use History: None Reported - Past Family History Father Family Medical History: Cancer Additional Family Medical History / Comment(s): SKIN CA Brother(s) Family Medical History: Cancer Additional Family Medical History / Comment(s): SKIN CANCER Medications and Allergies Home Medications Medication Instructions Recorded Confirmed Type Atorvastatin [Lipitor] 80 mg PO DAILY 09/08/17 01/01/22 History Tamsulosin HCl [Flomax] 0.4 mg PO BID 09/08/17 01/01/22 History atenoloL 25 mg PO DAILY 09/08/17 01/01/22 History lisinopriL [Zestril] 20 mg PO DAILY 09/08/17 01/01/22 History Aspirin EC [Ecotrin Low Dose] 81 mg PO DAILY 01/01/22 01/01/22 History Cyclobenzaprine [Flexeril] 10 mg PO HS PRN 01/01/22 01/01/22 History Dutasteride 0.5 mg PO DAILY 01/01/22 01/01/22 History HYDROcodone/APAP 5-325MG [[place] 1 tab PO TID PRN 01/01/22 01/01/22 History 5-325] Allergies Allergy/AdvReac Type Severity Reaction Status Date / Time No Known Allergies Allergy Verified 01/01/22 11:11 Physical Exam Osteopathic Statement: *. No significant issues noted on an osteopathic structural exam other than those noted in the History and Physical/Consult. Vitals: Vital Signs Temp Pulse Resp BP Pulse Ox 01/01/22 14:12 62 16 92/55 96 01/01/22 12:30 56 L 16 69/42 99 01/01/22 12:07 65 18 76/52 96 01/01/22 11:30 60 14 77/50 93 L 01/01/22 11:00 62 16 88/57 01/01/22 10:10 61 18 71/44 99 01/01/22 09:24 99.6 F 65 16 65/38 85 L Intake and Output 12/31/21 01/01/22 01/01/22 22:59 06:59 14:59 Output Total 87 Balance -87 Output: Urine 30 Straight 30 Post Void Residual 57 Other: Weight 65.771 kg No acute distress, oriented 3. No respiratory distress, conversational dyspnea, or use of accessory muscles. HEENT examination is grossly unremarkable. Neck supple. Full range of motion. No adenopathy thyromegaly or neck vein distention. Cardiovascular examination reveals regular rhythm rate. S1-S2 normal. No S3 or S4. No discernible murmur noted. Heart rate 62 bpm. Current blood pressure is 92/55 with a mean of 67. Lungs reveal mostly clear breath sounds. Breath sounds are equal bilaterally. Scattered crackles are noted. Saturations are 96%. Abdomen soft bowel sounds are heard. No masses or tenderness. Extremities are intact. No cyanosis clubbing or edema. Skin is without rash or lesion. Neurologic examination is brief but nonfocal. Results - Laboratory Findings CBC and BMP: 01/01/22 09:37 01/01/22 09:37 PT/INR, D-dimer PT 14.7 sec (9.0-12.0) H 01/01/22 09:37 INR 1.4 (<1.2) H 01/01/22 09:37 Abnormal lab findings: Abnormal Labs 01/01/22 01/01/22 01/01/22 09:37 09:37 09:37 RBC 3.17 L Hgb 9.7 L Hct 32.4 L MCV 102.2 H MCHC 29.9 L Lymphocytes # 0.3 L PT 14.7 H INR 1.4 H Potassium 5.6 H Chloride 116 H Carbon Dioxide 20 L BUN 79 H Creatinine 3.30 H Glucose 112 H Plasma Lactic Acid Gigi Calcium 7.6 L Magnesium AST 117 H ALT 96 H Alkaline Phosphatase 142 H Troponin I Total Protein 4.7 L Albumin 2.2 L Urine Protein Urine Blood Ur Leukocyte Esterase Urine RBC Urine WBC Urine WBC Clumps Urine Bacteria Urine Mucus 01/01/22 01/01/22 01/01/22 09:37 09:37 09:37 RBC Hgb Hct MCV MCHC Lymphocytes # PT INR Potassium Chloride Carbon Dioxide BUN Creatinine Glucose Plasma Lactic Acid Gigi 2.6 H* Calcium Magnesium 1.5 L AST ALT Alkaline Phosphatase Troponin I 0.330 H* Total Protein Albumin Urine Protein Urine Blood Ur Leukocyte Esterase Urine RBC Urine WBC Urine WBC Clumps Urine Bacteria Urine Mucus 01/01/22 11:46 RBC Hgb Hct MCV MCHC Lymphocytes # PT INR Potassium Chloride Carbon Dioxide BUN Creatinine Glucose Plasma Lactic Acid Gigi Calcium Magnesium AST ALT Alkaline Phosphatase Troponin I Total Protein Albumin Urine Protein 1+ H Urine Blood Small H Ur Leukocyte Esterase Large H Urine RBC 9 H Urine WBC >182 H Urine WBC Clumps Many H Urine Bacteria Many H Urine Mucus Moderate H - Diagnostic Findings Chest x-ray: image reviewed Assessment and Plan Assessment: Urinary tract infection, with possible urosepsis. Mild lactic acidemia secondary to urinary tract infection/sepsis. Prostate cancer, diagnosed May 2020. History of hypertension. History of hyperlipidemia. History of skin cancer. History of CAD with previous heart catheterization/stent. Prior history of tobacco use. Plan: Plan dated 01/01/2022. The patient is seen in the emergency room, room #6. The patient appears to be relatively stable. An echocardiogram was ordered by Dr. Weber. The patient received 2 g of Rocephin. The patient's received some fluid in the form of saline, [address] Weber to give the patient another liter of fluid. The blood pressure has improved. The patient looks relatively stable and might go to the general medical floor. We'll await the echocardiogram, and the response the next liter of fluid. It appears patient probably has a urinary tract infection, and has urosepsis with mild hypotension. Time with Patient: Greater than 30
--- NOTE | 2022-01-01 19:13 | P.HPIM ---
History of Present Illness H&P Date: 01/01/22 Chief Complaint: Weakness 49-year-old male who presents emergency department for generalized weakness. EMS states his been ongoing and getting worse over the last week and a half. Patient is a poor historian. Patient states he does have a history of high blood pressure but he did not take any of his high blood pressure medication today. Patient states he did take his pain medication. Patient denies any chest pain difficulty breathing shortness of breath. Patient denies headache patient denies numbness or weakness. Patient states he doesn't feel that bad currently. According to EMS patient was unable to stand at the home and he was so lightheaded there that he sat himself down the ground when they arrived as with a found him and he was not finding of any injuries. Patient denies any abdominal pain patient denies nausea vomiting but states he does have chronic diarrhea. Lab data includes a white count 6.7, hemoglobin 9.7, hematocrit 32.4, and platelet count 174,000. PT 14.7 INR 1.4. Sodium 144, potassium 5.6, chlorides 116, CO2 20, BUN 79, creatinine 3.30. Lactic acid was 2.6. Troponin was 0.330. N-terminal proBNP is 17,300. Magnesium 1.5. AST 117, ALT 96. Urine is yellow and cloudy. Blood small positive. Leukocyte esterase was large positive. There was greater than 182 WBCs, and many WBC clumps, and many bacteria. Testing for coronavirus was negative. Chest x-ray was consistent with mild fluid overload. Review of Systems REVIEW OF SYSTEMS: CONSTITUTIONAL: No fever, no malaise, no fatigue. HEENT: No recent visual problems or hearing problems. Denied any sore throat. CARDIOVASCULAR: No chest pain, orthopnea, PND, no palpitations, no syncope. PULMONARY: No shortness of breath, no cough, no hemoptysis. GASTROINTESTINAL: No diarrhea, no nausea, no vomiting, no abdominal pain. NEUROLOGICAL: No headaches, no weakness, no numbness. HEMATOLOGICAL: Denies any bleeding or petechiae. GENITOURINARY: Denies any burning micturition, frequency, or urgency. MUSCULOSKELETAL/RHEUMATOLOGICAL: Denies any joint pain, swelling, or any muscle pain. ENDOCRINE: Denies any polyuria or polydipsia. The rest of the 14-point review of systems is negative. Past Medical History Past Medical History: Cancer, Hyperlipidemia, Hypertension Additional Past Medical History / Comment(s): HX SKIN CANCER, DIFFICULTY URINATING AT NIGHT., AAA. History of Any Multi-Drug Resistant Organisms: None Reported Past Surgical History: Heart Catheterization With Stent, Orthopedic Surgery Additional Past Surgical History / Comment(s): PARTIAL RIGHT KNEE, HEART CATH (APPROX 20 YRS AGO) Past Anesthesia/Blood Transfusion Reactions: No Reported Reaction Date of Last Stent Placement:: ?1997 Past Psychological History: No Psychological Hx Reported Smoking Status: Former smoker Past Alcohol Use History: Rare Past Drug Use History: None Reported - Past Family History Father Family Medical History: Cancer Additional Family Medical History / Comment(s): SKIN CA Brother(s) Family Medical History: Cancer Additional Family Medical History / Comment(s): SKIN CANCER Medications and Allergies Home Medications Medication Instructions Recorded Confirmed Type Atorvastatin [Lipitor] 80 mg PO DAILY 09/08/17 01/01/22 History Tamsulosin HCl [Flomax] 0.4 mg PO BID 09/08/17 01/01/22 History atenoloL 25 mg PO DAILY 09/08/17 01/01/22 History lisinopriL [Zestril] 20 mg PO DAILY 09/08/17 01/01/22 History Aspirin EC [Ecotrin Low Dose] 81 mg PO DAILY 01/01/22 01/01/22 History Cyclobenzaprine [Flexeril] 10 mg PO HS PRN 01/01/22 01/01/22 History Dutasteride 0.5 mg PO DAILY 01/01/22 01/01/22 History HYDROcodone/APAP 5-325MG [[place] 1 tab PO TID PRN 01/01/22 01/01/22 History 5-325] Allergies Allergy/AdvReac Type Severity Reaction Status Date / Time No Known Allergies Allergy Verified 01/01/22 11:11 Physical Exam Vitals: Vital Signs Temp Pulse Resp BP Pulse Ox 01/01/22 14:12 62 16 92/55 96 01/01/22 12:30 56 L 16 69/42 99 01/01/22 12:07 65 18 76/52 96 01/01/22 11:30 60 14 77/50 93 L 01/01/22 11:00 62 16 88/57 01/01/22 10:10 61 18 71/44 99 01/01/22 09:24 99.6 F 65 16 65/38 85 L Intake and Output 12/31/21 01/01/22 01/01/22 22:59 06:59 14:59 Output Total 87 Balance -87 Output: Urine 30 Straight 30 Post Void Residual 57 Other: Weight 65.771 kg PHYSICAL EXAMINATION: GENERAL: The patient is alert and oriented x3, not in any acute distress. Well developed, well nourished. HEENT: Pupils are round and equally reacting to light. EOMI. No scleral icterus. No conjunctival pallor. Normocephalic, atraumatic. No pharyngeal erythema. No thyromegaly. CARDIOVASCULAR: S1 and S2 present. No murmurs, rubs, or gallops. PULMONARY: Chest is clear to auscultation, no wheezing or crackles. ABDOMEN: Soft, nontender, nondistended, normoactive bowel sounds. No palpable organomegaly. MUSCULOSKELETAL: No joint swelling or deformity. EXTREMITIES: No cyanosis, clubbing, or pedal edema. NEUROLOGICAL: Gross neurological examination did not reveal any focal deficits. SKIN: No rashes. Results CBC & Chem 7: 01/01/22 09:37 01/01/22 09:37 Labs: Abnormal Lab Results - Last 24 Hours (Table) 01/01/22 01/01/22 01/01/22 Range/Units 09:37 09:37 09:37 RBC 3.17 L (4.30-5.90) m/uL Hgb 9.7 L (13.0-17.5) gm/dL Hct 32.4 L (39.0-53.0) % MCV 102.2 H (80.0-100.0) fL MCHC 29.9 L (31.0-37.0) g/dL Lymphocytes # 0.3 L (1.0-4.8) k/uL PT 14.7 H (9.0-12.0) sec INR 1.4 H (<1.2) Potassium 5.6 H (3.5-5.1) mmol/L Chloride 116 H (98-107) mmol/L Carbon Dioxide 20 L (22-30) mmol/L BUN 79 H (9-20) mg/dL Creatinine 3.30 H (0.66-1.25) mg/dL Glucose 112 H (74-99) mg/dL Plasma Lactic Acid Gigi (0.7-2.0) mmol/L Calcium 7.6 L (8.4-10.2) mg/dL Magnesium (1.6-2.3) mg/dL AST 117 H (17-59) U/L ALT 96 H (4-49) U/L Alkaline Phosphatase 142 H (38-126) U/L Troponin I (0.000-0.034) ng/mL Total Protein 4.7 L (6.3-8.2) g/dL Albumin 2.2 L (3.5-5.0) g/dL Urine Protein (Negative) Urine Blood (Negative) Ur Leukocyte Esterase (Negative) Urine RBC (0-5) /hpf Urine WBC (0-5) /hpf Urine WBC Clumps (None) /hpf Urine Bacteria (None) /hpf Urine Mucus (None) /hpf 01/01/22 01/01/22 01/01/22 Range/Units 09:37 09:37 09:37 RBC (4.30-5.90) m/uL Hgb (13.0-17.5) gm/dL Hct (39.0-53.0) % MCV (80.0-100.0) fL MCHC (31.0-37.0) g/dL Lymphocytes # (1.0-4.8) k/uL PT (9.0-12.0) sec INR (<1.2) Potassium (3.5-5.1) mmol/L Chloride (98-107) mmol/L Carbon Dioxide (22-30) mmol/L BUN (9-20) mg/dL Creatinine (0.66-1.25) mg/dL Glucose (74-99) mg/dL Plasma Lactic Acid Gigi 2.6 H* (0.7-2.0) mmol/L Calcium (8.4-10.2) mg/dL Magnesium 1.5 L (1.6-2.3) mg/dL AST (17-59) U/L ALT (4-49) U/L Alkaline Phosphatase (38-126) U/L Troponin I 0.330 H* (0.000-0.034) ng/mL Total Protein (6.3-8.2) g/dL Albumin (3.5-5.0) g/dL Urine Protein (Negative) Urine Blood (Negative) Ur Leukocyte Esterase (Negative) Urine RBC (0-5) /hpf Urine WBC (0-5) /hpf Urine WBC Clumps (None) /hpf Urine Bacteria (None) /hpf Urine Mucus (None) /hpf 01/01/22 Range/Units 11:46 RBC (4.30-5.90) m/uL Hgb (13.0-17.5) gm/dL Hct (39.0-53.0) % MCV (80.0-100.0) fL MCHC (31.0-37.0) g/dL Lymphocytes # (1.0-4.8) k/uL PT (9.0-12.0) sec INR (<1.2) Potassium (3.5-5.1) mmol/L Chloride (98-107) mmol/L Carbon Dioxide (22-30) mmol/L BUN (9-20) mg/dL Creatinine (0.66-1.25) mg/dL Glucose (74-99) mg/dL Plasma Lactic Acid Gigi (0.7-2.0) mmol/L Calcium (8.4-10.2) mg/dL Magnesium (1.6-2.3) mg/dL AST (17-59) U/L ALT (4-49) U/L Alkaline Phosphatase (38-126) U/L Troponin I (0.000-0.034) ng/mL Total Protein (6.3-8.2) g/dL Albumin (3.5-5.0) g/dL Urine Protein 1+ H (Negative) Urine Blood Small H (Negative) Ur Leukocyte Esterase Large H (Negative) Urine RBC 9 H (0-5) /hpf Urine WBC >182 H (0-5) /hpf Urine WBC Clumps Many H (None) /hpf Urine Bacteria Many H (None) /hpf Urine Mucus Moderate H (None) /hpf Assessment and Plan Assessment: 1. UTI/sepsis - Patient has been placed on IV Rocephin; blood cultures and urine culture is done and pending - We will continue with current IV antibiotics and adjust therapy once culture results are available - Monitor CBC, CRP and pro-calcitonin 2. Lactic acidosis likely related to UTI versus dehydration - Patient did receive IV fluid bolus in ED; we will continue with IV fluids and monitor strict JEFRY's and daily weights; monitor lactic acid levels 3. Hypotension; volume depletion versus related to sepsis 4. Hypertension; patient takes atenolol 25 mg daily along with Zestril 20 mg daily; antihypertensive medications have been placed on hold until blood pressure improves 5. Hyperlipidemia; Lipitor 80 mg by mouth daily at bedtime 6. CAD; history of cardiac catheterization with stent placement 7. BPH; Flomax 0.4 mg twice a day DVT prophylaxis SCDs/subcu heparin CODE STATUS full code
[2022-01-01] MEDS: TAMSULOSIN 0.4 MG CAP.ER.24H PO SCH (21:51)
--- NOTE | 2022-01-02 08:18 | P.CRDCN ---
History of Present Illness Consult date: 01/02/22 Chief complaint: Generalized weakness History of present illness: The patient is a pleasant 81-year-old gentleman with requested to see for replaced by [facility] evaluation of abnormal cardiac enzymes and elevated troponin. The patient somewhat is a poor historian. He does have underlying history of possible coronary artery disease as well as hypertension and dyslipidemia and history of prostate cancer. The patient presented mainly because of generalized weakness and fatigue where he was unable to standup. No clear-cut evidence that he was experiencing any symptoms of chest pain or chest discomfort. EMS was called and the patient was brought to the hospital for further evaluation. The evaluation revealed possible urinary tract infection with urosepsis. We consulted to see the patient because of abnormal troponin. The troponin appeared to be flat across support. He underwent an EKG which showed sinus rhythm with sinus bradycardia but no significant ST or T-wave abnormalities concerning for ischemia. Also further evaluation revealed that the patient is in acute renal failure with creatinine of 3.30. Also he was having lactic acid is elevated at 2.6. His hemoglobin was 9.7 and the INR was 1.4. The patient was not experiencing any symptoms of any chest pain or chest discomfort and no shortness of breath. He seems to be euvolemic on examination. His pressure has been marginally low and he was given IV fluid. Also he underwent a chest x-ray which showed mild pulmonary vascular congestion. On examination the patient does have distant heart sounds with diminished breathing sounds bilaterally and no lower extremities edema noted. Past Medical History Past Medical History: Cancer, Hyperlipidemia, Hypertension Additional Past Medical History / Comment(s): HX SKIN CANCER, DIFFICULTY URINATING AT NIGHT., AAA. History of Any Multi-Drug Resistant Organisms: None Reported Past Surgical History: Heart Catheterization With Stent, Orthopedic Surgery Additional Past Surgical History / Comment(s): PARTIAL RIGHT KNEE, HEART CATH (APPROX 20 YRS AGO) Past Anesthesia/Blood Transfusion Reactions: No Reported Reaction Date of Last Stent Placement:: ?1997 Past Psychological History: No Psychological Hx Reported Smoking Status: Former smoker Past Alcohol Use History: Rare Past Drug Use History: None Reported - Past Family History Father Family Medical History: Cancer Additional Family Medical History / Comment(s): SKIN CA Brother(s) Family Medical History: Cancer Additional Family Medical History / Comment(s): SKIN CANCER Medications and Allergies Home Medications Medication Instructions Recorded Confirmed Type Atorvastatin [Lipitor] 80 mg PO DAILY 09/08/17 01/01/22 History Tamsulosin HCl [Flomax] 0.4 mg PO BID 09/08/17 01/01/22 History atenoloL 25 mg PO DAILY 09/08/17 01/01/22 History lisinopriL [Zestril] 20 mg PO DAILY 09/08/17 01/01/22 History Aspirin EC [Ecotrin Low Dose] 81 mg PO DAILY 01/01/22 01/01/22 History Cyclobenzaprine [Flexeril] 10 mg PO HS PRN 01/01/22 01/01/22 History Dutasteride 0.5 mg PO DAILY 01/01/22 01/01/22 History HYDROcodone/APAP 5-325MG [[place] 1 tab PO TID PRN 01/01/22 01/01/22 History 5-325] Allergies Allergy/AdvReac Type Severity Reaction Status Date / Time No Known Allergies Allergy Verified 01/01/22 11:11 Physical Exam Vitals: Vital Signs Temp Pulse Pulse Resp BP BP Pulse Ox 01/02/22 04:00 97.8 F 58 L 18 93/52 96 01/02/22 02:00 56 L 18 01/02/22 00:00 56 L 18 91/50 97 01/01/22 20:00 55 L 17 01/01/22 16:00 97.9 F 58 L 17 80/45 100 01/01/22 15:00 62 16 87/25 98 01/01/22 14:44 98.7 F 55 L 20 93/51 95 01/01/22 14:12 62 16 92/55 96 01/01/22 12:30 56 L 16 69/42 99 01/01/22 12:07 65 18 76/52 96 01/01/22 11:30 60 14 77/50 93 L 01/01/22 11:00 62 16 88/57 01/01/22 10:10 61 18 71/44 99 01/01/22 09:24 99.6 F 65 16 65/38 85 L Intake and Output 01/01/22 01/02/22 01/02/22 22:59 06:59 14:59 Intake Total 240 Output Total 200 200 Balance 40 -200 Intake: Oral 240 Output: Urine 200 200 Other: Voiding Method External Catheter External Catheter # Bowel Movements 1 - Constitutional General appearance: no acute distress - Respiratory Respiratory: bilateral: diminished - Cardiovascular Rhythm: regular Heart sounds: normal: S1, S2 Abnormal Heart Sounds: systolic murmur Results 01/01/22 09:37 01/01/22 09:37 Cardiac Enzymes 01/01/22 01/01/22 01/01/22 Range/Units 09:37 09:37 15:28 AST 117 H (17-59) U/L Troponin I 0.330 H* 0.270 H* (0.000-0.034) ng/mL 01/01/22 Range/Units 20:50 AST (17-59) U/L Troponin I 0.270 H* (0.000-0.034) ng/mL Coagulation 01/01/22 Range/Units 09:37 PT 14.7 H (9.0-12.0) sec APTT 27.9 (22.0-30.0) sec CBC 01/01/22 Range/Units 09:37 WBC 6.7 (3.8-10.6) k/uL RBC 3.17 L (4.30-5.90) m/uL Hgb 9.7 L (13.0-17.5) gm/dL Hct 32.4 L (39.0-53.0) % Plt Count 174 (150-450) k/uL Comprehensive Metabolic Panel 01/01/22 Range/Units 09:37 Sodium 144 (137-145) mmol/L Potassium 5.6 H (3.5-5.1) mmol/L Chloride 116 H (98-107) mmol/L Carbon Dioxide 20 L (22-30) mmol/L BUN 79 H (9-20) mg/dL Creatinine 3.30 H (0.66-1.25) mg/dL Glucose 112 H (74-99) mg/dL Calcium 7.6 L (8.4-10.2) mg/dL AST 117 H (17-59) U/L ALT 96 H (4-49) U/L Alkaline Phosphatase 142 H (38-126) U/L Total Protein 4.7 L (6.3-8.2) g/dL Albumin 2.2 L (3.5-5.0) g/dL Current Medications Generic Name Dose Route Start Last Admin Trade Name Freq PRN Reason Stop Dose Admin Aspirin 81 mg 01/02/22 09:00 Aspirin 81 Mg PO DAILY [facility] Atorvastatin Calcium 80 mg 01/02/22 09:00 Atorvastatin 80 Mg Tab PO DAILY [facility] Finasteride 5 mg 01/02/22 09:00 Finasteride 5 Mg Tab PO DAILY [facility] Dopamine HCl/Dextrose 800 mg/ 250 mls @ 6.166 mls/hr 01/01/22 13:36 01/01/22 15:25 IV Solution IV 01/02/22 13:35 Not Given .Q24H ONE Protocol 5 MCG/KG/MIN Sodium Chloride 1,000 mls @ 75 mls/hr 01/02/22 06:45 Saline 0.9% IV .[id number] [facility] Tamsulosin HCl 0.4 mg 01/01/22 21:00 01/01/22 21:51 Tamsulosin 0.4 Mg Cap.Er.24h PO Not Given BID [facility] Intake and Output 01/01/22 01/02/22 01/02/22 22:59 06:59 14:59 Intake Total 240 Output Total 200 200 Balance 40 -200 Intake: Oral 240 Output: Urine 200 200 Other: Voiding Method External Catheter External Catheter # Bowel Movements 1 01/01/22 09:37 01/01/22 09:37 Assessment and Plan Assessment: Assessment #1 evidence of myocardial injury with no evidence of ischemia clinically or by EKG. #2 UTI/urosepsis #3 low blood pressure probably secondary to the above and possible dehydration #4 bradycardia appeared to be asymptomatic at this point #5 possible history of CAD, unknown details #6 acute on chronic renal failure Plan #1 avoid any AV shen abril agents #2 rule out any wall motion abnormalities by echocardiogram #3 the mildly abnormal troponin is likely related to the hypotension as well as acute renal failure #4 consider medical treatment for the abnormal troponin in the light of absence of any chest pain or chest discomfort and the presence of acute renal failure #5 follow-up on the echocardiogram. Rule out pericardial effusion giving the distant heart sounds and the hypotension #6 continue aspirin We'll follow-up with the patient
[2022-01-02] MEDS ORDERED: ASPIRIN 325 MG TAB PO SCH (09:00)
[2022-01-02 09:23] LABS: African American GFR (CKD) 18 (>60 ml/min/1.73 sqM); Anion Gap 6 mmol/L; Blood Urea Nitrogen 88 mg/dL (9-20); Carbon Dioxide 20 mmol/L (22-30); Chloride 116 mmol/L (98-107); Glucose 179 mg/dL (74-99); Non-African American GFR(CKD) 15 (>60 ml/min/1.73 sqM); Potassium 5.6 mmol/L (3.5-5.1); Sodium 142 mmol/L (137-145)
[2022-01-02] MEDS: ATORVASTATIN 80 MG TAB PO SCH (09:57)
[2022-01-02] MEDS: FINASTERIDE 5 MG TAB PO SCH (09:57)
[2022-01-02] MEDS: TAMSULOSIN 0.4 MG CAP.ER.24H PO SCH (09:57)
[2022-01-02] MEDS: ASPIRIN 81 MG PO SCH (09:57)
[2022-01-02] MEDS ORDERED: SODIUM CHLORIDE 0.9% 1,000 ML IV ONE (10:36)
--- NOTE | 2022-01-02 11:30 | P.PN ---
Subjective Progress Note Date: 01/02/22 Principal diagnosis: Urinary tract infection/sepsis. Pulmonary consult dated 01/01/2022 81-year-old male who was seen in the emergency room for weakness. He was seen there by Dr. Weber. The patient apparently felt weak on his feet, and had a hard time standing up, apparently feeling that she was going to pass out. EMS brought him into the emergency room where he was evaluated. He was thought to possibly have urinary tract infection/urosepsis. The patient is currently in the ER, room #6. CO2 liters of fluid, and is on 2 L of oxygen. He apparently has a history of hypertension, hyperlipidemia, and prostate cancer. He did not take his blood pressure medications today. We are asked to see him for possible admission to the intensive care unit. Currently, his blood pressure is about 90 systolic. Lab data includes a white count 6.7, hemoglobin 9.7, hematocrit 32.4, and platelet count 174,000. PT 14.7 INR 1.4. Sodium 144, potassium 5.6, chlorides 116, CO2 20, BUN 79, creatinine 3.30. Lactic acid was 2.6. Troponin was 0.330. N-terminal proBNP is 17,300. Magnesium 1.5. AST 117, ALT 96. Urine is yellow and cloudy. Blood small positive. Leukocyte esterase was large positive. There was greater than 182 WBCs, and many WBC clumps, and many bacteria. Testing for coronavirus was negative. Chest x-ray was consistent with mild fluid overload. Progress note dated 01/02/2022. 81-year-old male seen in consultation yesterday in the emergency department. He was thought to have urinary tract infection/urosepsis with hypotension. He has a history of hypertension, hyperlipidemia, and prostate cancer. The patient was admitted to the general medical floor. Currently, he is on a couple liters of oxygen. He is receiving Rocephin. Blood pressure is still a little soft. Today he is given midodrine 10 mg 3 times a day, a stat cortisol level, and h ydrocortisone, 50 mg IV push every 6 hours. Sodium 142, potassium 5.6, chlorides 116, CO2 20, BUN 88, creatinine 3.52. Troponins were 0.270 and 0.270. Objective - Vital Signs Vital signs: Vital Signs Temp 98.6 F 01/02/22 09:00 Pulse 58 L 01/02/22 09:00 Resp 20 01/02/22 09:00 BP 80/40 01/02/22 09:15 Pulse Ox 97 01/02/22 09:15 FiO2 Intake & Output 01/01/22 01/02/22 01/02/22 18:59 06:59 18:59 Intake Total 240 240 Output Total 87 400 Balance -87 -160 240 Weight 65.771 kg Intake: Oral 240 240 Output: Urine 30 400 Straight 30 Post Void Residual 57 Other: Voiding Method External Catheter # Bowel Movements 1 - Exam No acute distress, oriented 3. No respiratory distress, conversational dyspnea, or use of accessory muscles. 3 L saturation is 97%. HEENT examination is grossly unremarkable. Neck supple. Full range of motion. No adenopathy thyromegaly or neck vein dis tention. Cardiovascular examination reveals regular rhythm rate. S1-S2 normal. No S3 or S4. No discernible murmur noted. Heart rate 58 bpm. Lungs reveal mostly clear breath sounds. Breath sounds are equal bilaterally. Scattered crackles are noted. Saturations are 97%. Abdomen soft bowel sounds are heard. No masses or tenderness. Extremities are intact. No cyanosis clubbing or edema. Skin is without rash or lesion. Neurologic examination is brief but nonfocal. - Labs CBC & Chem 7: 01/01/22 09:37 01/02/22 08:58 Labs: Abnormal Lab Results - Last 24 Hours (Table) 01/01/22 01/01/22 01/01/22 Range/Units 09:37 11:46 15:28 Potassium (3.5-5.1) mmol/L Chloride (98-107) mmol/L Carbon Dioxide (22-30) mmol/L BUN (9-20) mg/dL Creatinine (0.66-1.25) mg/dL Glucose (74-99) mg/dL Calcium (8.4-10.2) mg/dL Magnesium 1.5 L (1.6-2.3) mg/dL Troponin I 0.270 H* (0.000-0.034) ng/mL Urine Protein 1+ H (Negative) Urine Blood Small H (Negative) Ur Leukocyte Esterase Large H (Negative) Urine RBC 9 H (0-5) /hpf Urine WBC >182 H (0-5) /hpf Urine WBC Clumps Many H (None) /hpf Urine Bacteria Many H (None) /hpf Urine Mucus Moderate H (None) /hpf 01/01/22 01/02/22 Range/Units 20:50 08:58 Potassium 5.6 H (3.5-5.1) mmol/L Chloride 116 H (98-107) mmol/L Carbon Dioxide 20 L (22-30) mmol/L BUN 88 H (9-20) mg/dL Creatinine 3.52 H (0.66-1.25) mg/dL Glucose 179 H (74-99) mg/dL Calcium 8.0 L (8.4-10.2) mg/dL Magnesium (1.6-2.3) mg/dL Troponin I 0.270 H* (0.000-0.034) ng/mL Urine Protein (Negative) Urine Blood (Negative) Ur Leukocyte Esterase (Negative) Urine RBC (0-5) /hpf Urine WBC (0-5) /hpf Urine WBC Clumps (None) /hpf Urine Bacteria (None) /hpf Urine Mucus (None) /hpf Microbiology - Last 24 Hours (Table) 01/01/22 12:52 Blood Culture - Final Blood 01/01/22 12:50 Blood Culture - Final Blood 01/01/22 11:46 Urine Culture - Preliminary Urine,Voided Assessment and Plan Assessment: Urinary tract infection, with possible urosepsis. Mild lactic acidemia secondary to urinary tract infection/sepsis. Prostate cancer, diagnosed May 2020. History of hypertension. History of hyperlipidemia. History of skin cancer. History of CAD with previous heart catheterization/stent. Prior history of tobacco use. Plan: Plan dated 01/01/2022. The patient is seen in the emergency room, room #6. The patient appears to be relatively stable. An echocardiogram was ordered by Dr. Weber. The patient received 2 g of Rocephin. The patient's received some fluid in the form of saline, [address] Weber to give the patient another liter of fluid. The blood pressure has improved. The patient looks relatively stable and might go to the general medical floor. We'll await the echocardiogram, and the response the next liter of fluid. It appears patient probably has a urinary tract infection, and has urosepsis with mild hypotension. Plan dated 01/02/2022. The patient's currently on a couple liters of oxygen. Saturations are excellent. His blood pressure this morning was a little low, so we went ahead and gave him midodrine 10 mg 3 times a day, as for a stat cortisol level, and gave the patient hydrocortisone 50 mg IV push, every 6 hours. We also added back to Rocephin for possible urinary tract infection. We will continue to follow the patient and make recommendations where appropriate. The patient has been seen by cardiology. We do recommend a nephrology consultation as well. Time with Patient: Less than 30
[2022-01-02] MEDS: SODIUM CHLORIDE 0.9% 1,000 ML IV SCH (12:14)
[2022-01-02] MEDS: MIDODRINE 5 MG TAB PO SCH ×2 (12:15→17:06)
[2022-01-02] MEDS ORDERED: SODIUM ZIRCONIUM CYCLOSILICATE 10 GM PACKET PO ONE (12:50)
[2022-01-02] MEDS ORDERED: ALBUMIN HUMAN 5% 500 ML in EMPTY BAG 1 BAG IVPB ONE (13:33)
--- NOTE | 2022-01-02 16:41 | P.PN ---
Subjective Progress Note Date: 01/02/22 49-year-old male who presents emergency department for generalized weakness. EMS states his been ongoing and getting worse over the last week and a half. Patient is a poor historian. Patient states he does have a history of high blood pressure but he did not take any of his high blood pressure medication today. Patient states he did take his pain medication. Patient denies any chest pain difficulty breathing shortness of breath. Patient denies headache patient denies numbness or weakness. Patient states he doesn't feel that bad currently. According to EMS patient was unable to stand at the home and he was so lightheaded there that he sat himself down the ground when they arrived as with a found him and he was not finding of any injuries. Patient denies any abdominal pain patient denies nausea vomiting but states he does have chronic diarrhea. Lab data includes a white count 6.7, hemoglobin 9.7, hematocrit 32.4, and platelet count 174,000. PT 14.7 INR 1.4. Sodium 144, potassium 5.6, chlorides 116, CO2 20, BUN 79, creatinine 3.30. Lactic acid was 2.6. Troponin was 0.330. N-terminal proBNP is 17,300. Magnesium 1.5. AST 117, ALT 96. Urine is yellow and cloudy. Blood small positive. Leukocyte esterase was large positive. There was greater than 182 WBCs, and many WBC clumps, and many bacteria. Testing for coronavirus was negative. Chest x-ray was consistent with mild fluid overload. Objective - Vital Signs Vital signs: Vital Signs Temp 98.6 F 01/02/22 09:00 Pulse 58 L 01/02/22 09:00 Resp 20 01/02/22 09:00 BP 80/40 01/02/22 09:15 Pulse Ox 97 01/02/22 09:15 FiO2 Intake & Output 01/01/22 01/02/22 01/02/22 18:59 06:59 18:59 Intake Total 240 240 Output Total 87 400 Balance -87 -160 240 Weight 65.771 kg Intake: Oral 240 240 Output: Urine 30 400 Straight 30 Post Void Residual 57 Other: Voiding Method External Catheter # Bowel Movements 1 - Exam GENERAL: The patient is alert and oriented x3, not in any acute distress. Well developed, well nourished. HEENT: Pupils are round and equally reacting to light. EOMI. No scleral icterus. No conjunctival pallor. Normocephalic, atraumatic. No pharyngeal erythema. No thyromegaly. CARDIOVASCULAR: S1 and S2 present. No murmurs, rubs, or gallops. PULMONARY: Chest is clear to auscultation, no wheezing or crackles. ABDOMEN: Soft, nontender, nondistended, normoactive bowel sounds. No palpable organomegaly. MUSCULOSKELETAL: No joint swelling or deformity. EXTREMITIES: No cyanosis, clubbing, or pedal edema. NEUROLOGICAL: Gross neurological examination did not reveal any focal deficits. SKIN: No rashes. - Labs CBC & Chem 7: 01/01/22 09:37 01/02/22 08:58 Labs: Abnormal Lab Results - Last 24 Hours (Table) 01/01/22 01/01/22 01/01/22 Range/Units 09:37 11:46 15:28 Potassium (3.5-5.1) mmol/L Chloride (98-107) mmol/L Carbon Dioxide (22-30) mmol/L BUN (9-20) mg/dL Creatinine (0.66-1.25) mg/dL Glucose (74-99) mg/dL Calcium (8.4-10.2) mg/dL Magnesium 1.5 L (1.6-2.3) mg/dL Troponin I 0.270 H* (0.000-0.034) ng/mL Urine Protein 1+ H (Negative) Urine Blood Small H (Negative) Ur Leukocyte Esterase Large H (Negative) Urine RBC 9 H (0-5) /hpf Urine WBC >182 H (0-5) /hpf Urine WBC Clumps Many H (None) /hpf Urine Bacteria Many H (None) /hpf Urine Mucus Moderate H (None) /hpf 01/01/22 01/02/22 Range/Units 20:50 08:58 Potassium 5.6 H (3.5-5.1) mmol/L Chloride 116 H (98-107) mmol/L Carbon Dioxide 20 L (22-30) mmol/L BUN 88 H (9-20) mg/dL Creatinine 3.52 H (0.66-1.25) mg/dL Glucose 179 H (74-99) mg/dL Calcium 8.0 L (8.4-10.2) mg/dL Magnesium (1.6-2.3) mg/dL Troponin I 0.270 H* (0.000-0.034) ng/mL Urine Protein (Negative) Urine Blood (Negative) Ur Leukocyte Esterase (Negative) Urine RBC (0-5) /hpf Urine WBC (0-5) /hpf Urine WBC Clumps (None) /hpf Urine Bacteria (None) /hpf Urine Mucus (None) /hpf Microbiology - Last 24 Hours (Table) 01/01/22 12:52 Blood Culture - Final Blood 01/01/22 12:50 Blood Culture - Final Blood 01/01/22 11:46 Urine Culture - Preliminary Urine,Voided Assessment and Plan Assessment: 1. UTI/sepsis - Patient has been placed on IV Rocephin; blood cultures and urine culture is done and pending - We will continue with current IV antibiotics and adjust therapy once culture results are available - Monitor CBC, CRP and pro-calcitonin 2. Lactic acidosis likely related to UTI versus dehydration - Patient did receive IV fluid bolus in ED; we will continue with IV fluids and monitor strict JEFRY's and daily weights; monitor lactic acid levels 3. Hypotension; volume depletion versus related to sepsis 4. Hypertension; patient takes atenolol 25 mg daily along with Zestril 20 mg daily; antihypertensive medications have been placed on hold until blood pressure improves 5. Hyperlipidemia; Lipitor 80 mg by mouth daily at bedtime 6. CAD; history of cardiac catheterization with stent placement 7. BPH; Flomax 0.4 mg twice a day DVT prophylaxis SCDs/subcu heparin CODE STATUS full code
--- NOTE | 2022-01-03 06:16 | P.PN ---
Subjective Progress Note Date: 01/03/22 Principal diagnosis: Abnormal cardiac enzymes This is an 81-year-old gentleman with a past medical history significant for hypertension and dyslipidemia possibly history of coronary artery disease, the patient somewhat is poor historian, was admitted to the hospital with general ized weakness and fatigue. He was diagnosed with urosepsis. We consulted to see the patient because of abnormal cardiac enzymes. He was in acute renal failure. He also was slightly hypotensive and bradycardic. We felt that the abnormal cardiac enzymes are related to the above reasons. Beside that his EKG did not show any ischemic ST or T-wave abnormalities and more importantly he did not have any symptoms of chest pain or chest discomfort. He was seen this morning. He remains asymptomatic. His mentation has somewhat improved. His pressure continues to be soft with me about 60 mmHg. He is not experiencing any chest pain or chest discomfort or shortness of breath. He seems to be euvolemic on examination. He continues to be getting treated for UTI. He underwent an echocardiogram and we will follow-up with that. Meanwhile continue the current medical regimen and continue considering conservative approach for the abnormal cardiac enzymes. Follow up on his echocardiogram Objective - Vital Signs Vital signs: Vital Signs Temp 98.0 F 01/02/22 16:00 Pulse 60 01/03/22 02:00 Resp 18 01/03/22 02:00 BP 86/50 01/03/22 04:00 Pulse Ox 94 L 01/03/22 00:00 FiO2 Intake & Output 01/02/22 01/02/22 01/03/22 06:59 18:59 06:59 Intake Total 240 240 360 Output Total 400 3 250 Balance -160 237 110 Intake: Oral 240 240 360 Output: Urine 400 250 Stool 3 Other: Voiding Method External Catheter External Catheter External Catheter # Voids 2 # Bowel Movements 1 - Constitutional General appearance: Present: no acute distress - Respiratory Respiratory: bilateral: diminished - Cardiovascular Heart sounds: normal: S1, S2 Abnormal Heart Sounds: Present: systolic murmur - Labs CBC & Chem 7: 01/01/22 09:37 01/02/22 08:58 Labs: Abnormal Lab Results - Last 24 Hours (Table) 01/02/22 01/02/22 01/02/22 Range/Units 08:58 08:58 08:58 Potassium 5.6 H (3.5-5.1) mmol/L Chloride 116 H (98-107) mmol/L Carbon Dioxide 20 L (22-30) mmol/L BUN 88 H (9-20) mg/dL Creatinine 3.52 H (0.66-1.25) mg/dL Glucose 179 H (74-99) mg/dL Calcium 8.0 L (8.4-10.2) mg/dL Procalcitonin 33.10 H (0.02-0.09) ng/mL Cortisol 43.0 H (3.1-22.4) ug/dL Microbiology - Last 24 Hours (Table) 01/01/22 11:46 Urine Culture - Preliminary Urine,Voided Gram Neg Bacilli 01/01/22 12:50 Blood Culture Gram Stain - Preliminary Blood Blood Culture - Preliminary Gram Neg Bacilli 01/01/22 12:52 Blood Culture Gram Stain - Preliminary Blood Blood Culture - Preliminary Escherichia coli Assessment and Plan Assessment: Assessment #1 evidence of myocardial injury with no evidence of ischemia clinically or by EKG. #2 UTI/urosepsis #3 low blood pressure probably secondary to the above and possible dehydration #4 bradycardia appeared to be asymptomatic at this point #5 possible history of CAD, unknown details #6 acute on chronic renal failure Plan #1 avoid any AV shen abril agents #2 rule out any wall motion abnormalities by echocardiogram. Also rule out pericardial effusion #3 the mildly abnormal troponin is likely related to the hypotension as well as acute renal failure #4 consider medical treatment for the abnormal troponin in the light of absence of any chest pain or chest discomfort and the presence of acute renal failure #5 follow-up with the patient
[2022-01-03] MEDS: MIDODRINE 5 MG TAB PO SCH ×3 (06:46→17:25)
[2022-01-03] MEDS: SODIUM CHLORIDE 0.9% 1,000 ML IV SCH ×2 (06:47→09:50)
--- NOTE | 2022-01-03 08:45 | P.NPCON ---
History of Present Illness - Reason for Consult acute renal failure - History of Present Illness Patient is an 81-year-old malewith history of hypertension, hyperlipidemia, abdominal aortic aneurysm and previous history of urine retention. Patient was admitted to the hospital with complaints of increased weakness. Patient is noted to have significant hypotension with systolic blood pressure in the 70s and 80s. He has received IV fluid boluses and has been started on midodrine as well. Blood cultures are growing gram-negative bacilli/E. coli and urine culture is also growing gram-negative bacilli. Currently maintained on IV RocephiN SERUM CREATININE WAS 3.3 mg/dL on admission and increased to 3.5 yesterday.previous creatinine noted to be 3.3 on 08/05/2021 and 3.5 on 03/31/2021. Overall patient states he is feeling better today. PATIENT WAS ON andrzej INHIBITOR'S PRIOR TO ADMISSION, CURRENTLY ON HOLD. Review of Systems as per HPI Past Medical History Past Medical History: Cancer, Hyperlipidemia, Hypertension Additional Past Medical History / Comment(s): HX SKIN CANCER, DIFFICULTY URINATING AT NIGHT., AAA. History of Any Multi-Drug Resistant Organisms: None Reported Past Surgical History: Heart Catheterization With Stent, Orthopedic Surgery Additional Past Surgical History / Comment(s): PARTIAL RIGHT KNEE, HEART CATH ( APPROX 20 YRS AGO) Past Anesthesia/Blood Transfusion Reactions: No Reported Reaction Date of Last Stent Placement:: ?1997 Past Psychological History: No Psychological Hx Reported Smoking Status: Former smoker Past Alcohol Use History: Rare Past Drug Use History: None Reported - Past Family History Father Family Medical History: Cancer Additional Family Medical History / Comment(s): SKIN CA Brother(s) Family Medical History: Cancer Additional Family Medical History / Comment(s): SKIN CANCER Medications and Allergies Home Medications Medication Instructions Recorded Confirmed Type Atorvastatin [Lipitor] 80 mg PO DAILY 09/08/17 01/01/22 History Tamsulosin HCl [Flomax] 0.4 mg PO BID 09/08/17 01/01/22 History atenoloL 25 mg PO DAILY 09/08/17 01/01/22 History lisinopriL [Zestril] 20 mg PO DAILY 09/08/17 01/01/22 History Aspirin EC [Ecotrin Low Dose] 81 mg PO DAILY 01/01/22 01/01/22 History Cyclobenzaprine [Flexeril] 10 mg PO HS PRN 01/01/22 01/01/22 History Dutasteride 0.5 mg PO DAILY 01/01/22 01/01/22 History HYDROcodone/APAP 5-325MG [Atkins 1 tab PO TID PRN 01/01/22 01/01/22 History 5-325] Allergies Allergy/AdvReac Type Severity Reaction Status Date / Time No Known Allergies Allergy Verified 01/01/22 11:11 Physical Exam Vitals: Vital Signs Temp Pulse Resp BP Pulse Ox 01/03/22 04:00 86/50 01/03/22 02:00 60 18 01/03/22 00:00 60 18 93/57 94 L 01/02/22 21:57 60 80/45 01/02/22 20:00 60 18 01/02/22 19:42 55 L 18 74/43 94 L 01/02/22 18:00 68/42 01/02/22 17:30 81/40 01/02/22 17:15 78/45 01/02/22 17:00 68/39 01/02/22 16:15 65/39 01/02/22 16:00 98.0 F 56 L 18 69/42 97 01/02/22 14:00 58 L 20 01/02/22 12:00 97.1 F L 56 L 18 70/36 99 01/02/22 09:15 80/40 97 01/02/22 09:00 98.6 F 58 L 20 77/45 86 L Intake and Output 01/02/22 01/03/22 01/03/22 22:59 06:59 14:59 Intake Total 240 120 Output Total 3 250 Balance 237 -130 Intake: Oral 240 120 Output: Urine 250 Stool 3 Other: Voiding Method External Catheter External Catheter # Voids 2 patient is awake, comfortable, not in any acute distress Examination of the heart S1 and S2 Examination of the lungs bilateral breath sounds are heard Abdomen is soft nontender Examination of the lower extremities shows no significant edema [employer]ER exam grossly intact. Patient is moving all 4 extremities Results - Lab Results Most recent lab results Calcium 8.0 mg/dL (8.4-10.2) L 01/02/22 08:58 Magnesium 1.9 mg/dL (1.5-2.4) 01/02/22 08:58 01/01/22 09:37 01/02/22 08:58 Assessment and Plan Assessment: 1. Acute kidney injury associated with hypotension and sepsis currently nonoliguric. Urine output is not accurately charted. Rule out urine retention.UA is suggestive of underlying UTI 2. Gram-negative sepsis with blood cultures growing E. coli and urine culture growing gram-negative bacilli 3. Lactic acidosis secondary to hypotension and sepsis 4. History of hypertension with blood pressure medications currently on hold 5. Coronary artery disease with history of cardiac catheterization previously 6. BPH maintained on Flomax Plan: check bladder scan Continue with IV fluids Check ultrasound of the kidneys Continue with IV antibiotics Avoid any nephrotoxic agents Continue to hold off on ANDRZEJ inhibitor's and other blood pressure medications for now
[2022-01-03] MEDS: ASPIRIN 81 MG PO SCH (09:47)
[2022-01-03] MEDS: ATORVASTATIN 80 MG TAB PO SCH (09:47)
[2022-01-03] MEDS: FINASTERIDE 5 MG TAB PO SCH (09:47)
--- NOTE | 2022-01-03 10:09 | P.PN ---
Subjective Progress Note Date: 01/03/22 Principal diagnosis: Urinary tract infection/sepsis. Pulmonary consult dated 01/01/2022 81-year-old male who was seen in the emergency room for weakness. He was seen there by Dr. Weber. The patient apparently felt weak on his feet, and had a hard time standing up, apparently feeling that she was going to pass out. EMS brought him into the emergency room where he was evaluated. He was thought to possibly have urinary tract infection/urosepsis. The patient is currently in the ER, room #6. CO2 liters of fluid, and is on 2 L of oxygen. He apparently has a history of hypertension, hyperlipidemia, and prostate cancer. He did not take his blood pressure medications today. We are asked to see him for possible admission to the intensive care unit. Currently, his blood pressure is about 90 systolic. Lab data includes a white count 6.7, hemoglobin 9.7, hematocrit 32.4, and platelet count 174,000. PT 14.7 INR 1.4. Sodium 144, potassium 5.6, chlorides 116, CO2 20, BUN 79, creatinine 3.30. Lactic acid was 2.6. Troponin was 0.330. N-terminal proBNP is 17,300. Magnesium 1.5. AST 117, ALT 96. Urine is yellow and cloudy. Blood small positive. Leukocyte esterase was large positive. There was greater than 182 WBCs, and many WBC clumps, and many bacteria. Testing for coronavirus was negative. Chest x-ray was consistent with mild fluid overload. Progress note dated 01/02/2022. 81-year-old male seen in consultation yesterday in the emergency department. He was thought to have urinary tract infection/urosepsis with hypotension. He has a history of hypertension, hyperlipidemia, and prostate cancer. The patient was admitted to the general medical floor. Currently, he is on a couple liters of oxygen. He is receiving Rocephin. Blood pressure is still a little soft. Today he is given midodrine 10 mg 3 times a day, a stat cortisol level, and h ydrocortisone, 50 mg IV push every 6 hours. Sodium 142, potassium 5.6, chlorides 116, CO2 20, BUN 88, creatinine 3.52. Troponins were 0.270 and 0.270. Progress note dated 01/03/2022. 81-year-old male seen in consultation, initially in the emergency department. He was thought to have a urinary tract infection/urosepsis. Blood cultures apparently did come back positive for Escherichia coli. His most recent blood pressure is 93/57. He's getting 3 L nasal cannula and saline at 75 mL an hour. No new labs today. Urine is showing gram-negative bacilli, not yet been identified. The blood cultures are showing Escherichia coli. The patient continues on IV Rocephin. He is feeling better everyday. Objective - Vital Signs Vital signs: Vital Signs Temp 98.0 F 01/02/22 16:00 Pulse 60 01/03/22 02:00 Resp 18 01/03/22 02:00 BP 86/50 01/03/22 04:00 Pulse Ox 94 L 01/03/22 00:00 FiO2 Intake & Output 01/02/22 01/03/22 01/03/22 18:59 06:59 18:59 Intake Total 240 360 240 Output Total 3 250 Balance 237 110 240 Intake: Oral 240 360 240 Output: Urine 250 Stool 3 Other: Voiding Method External Catheter External Catheter # Voids 2 - Exam No acute distress, oriented 3. No respiratory distress, conversational dyspnea, or use of accessory muscles. 3 L saturation is 96%. HEENT examination is grossly unremarkable. Neck supple. Full range of motion. No adenopathy thyromegaly or neck vein distention. Cardiovascular examination reveals regular rhythm rate. S1-S2 normal. No S3 or S4. No discernible murmur noted. Heart rate 60 bpm. Lungs reveal mostly clear breath sounds. Breath sounds are equal bilaterally. Scattered crackles are noted. Saturations are 96 %. Abdomen soft bowel sounds are heard. No masses or tenderness. Extremities are intact. No cyanosis clubbing or edema. Skin is without rash or lesion. Neurologic examination is brief but nonfocal. - Labs CBC & Chem 7: 01/01/22 09:37 01/02/22 08:58 Labs: Abnormal Lab Results - Last 24 Hours (Table) 01/02/22 01/02/22 Range/Units 08:58 08:58 Procalcitonin 33.10 H (0.02-0.09) ng/mL Cortisol 43.0 H (3.1-22.4) ug/dL Microbiology - Last 24 Hours (Table) 01/01/22 11:46 Urine Culture - Preliminary Urine,Voided Gram Neg Bacilli 01/01/22 12:50 Blood Culture Gram Stain - Preliminary Blood Blood Culture - Preliminary Gram Neg Bacilli 01/01/22 12:52 Blood Culture Gram Stain - Preliminary Blood Blood Culture - Preliminary Escherichia coli Assessment and Plan Assessment: Urinary tract infection/urosepsis, secondary to Escherichia coli. Mild lactic acidemia secondary to urinary tract infection/sepsis. Prostate cancer, diagnosed May 2020. History of hypertension. History of hyperlipidemia. History of skin cancer. History of CAD with previous heart catheterization/stent. Prior history of tobacco use. Plan: Plan dated 01/01/2022. The patient is seen in the emergency room, room #6. The patient appears to be relatively stable. An echocardiogram was ordered by Dr. Weber. The patient received 2 g of Rocephin. The patient's received some fluid in the form of albert ine, [address] Weber to give the patient another liter of fluid. The blood pressure has improved. The patient looks relatively stable and might go to the general medical floor. We'll await the echocardiogram, and the response the next liter of fluid. It appears patient probably has a urinary tract infection, and has urosepsis with mild hypotension. Plan dated 01/02/2022. The patient's currently on a couple liters of oxygen. Saturations are excellent. His blood pressure this morning was a little low, so we went ahead and gave him midodrine 10 mg 3 times a day, as for a stat cortisol level, and gave the patient hydrocortisone 50 mg IV push, every 6 hours. We also added back to Rocephin for possible urinary tract infection. We will continue to follow the patient and make recommendations where appropriate. The patient has been seen by cardiology. We do recommend a nephrology consultation as well. Plan dated 01/03/2022. The patient remains on O2 at 3 L. The patient's getting saline at 75 mL an hour. Blood cultures are positive for Escherichia coli. The patient remains on Rocephin. Blood pressure is a bit improved. Clinically he is very stable even with a low blood pressure. Is feeling better. Pro-calcitonin level is 33.1. We will continue to follow the patient and make recommendations. He is currently on excellent antibiotics. Prognosis is guarded. Time with Patient: Less than 30
--- NOTE | 2022-01-03 10:10 | US ---
EXAMINATION TYPE: US kidneys/renal and bladder DATE OF EXAM: 01/03/2022 COMPARISON: NONE CLINICAL HISTORY: HUMBERTO. HUMBERTO, sepsis, UTI EXAM MEASUREMENTS: Right Kidney: 11.2 x 5.9 x 4.5 cm Left Kidney: 10.6 x 4.7 x 5.0 cm Right Kidney: hydronephrosis, dense echogenic focus = 0.6 cm lower pole Left Kidney: hydronephrosis, dense echogenic foci = 1.3 cm and 1.2cm Bladder: thickened wall = 1.7cm Bilateral Jets seen: no *incidental finding, known AAA = 6.7 x 5.3cm IMPRESSION: 1. Similar-bilateral hydronephrosis dating back to 07/23/2020 CT 2. Abdominal aortic aneurysm which appears similar given differences in modality to prior in 2020. 3. Bilateral suspected nonobstructing calculi.
--- NOTE | 2022-01-03 11:04 | CA ---
Transthoracic Echo Report Name: David Soto Age: 81 Gender: M : 1940 Exam Date: 01/01/2022 13:49 Exam Location: [facility] Ht (in): 68 Wt (lb): 145 Ordering Physician: Babatunde Weber MD Attending/Referring Phys: [employer] Blacksmith Batool Calderón RDCS Procedure CPT: Indications: Hypotension Cardiac Hx: Technical Quality: Fair Contrast 1: Total Dose (mL): Contrast 2: Total Dose (mL): MEASUREMENTS (Male / Female) Normal Values 2D ECHO LV Diastolic Diameter PLAX 3.9 cm 4.2 - 5.9 / 3.9 - 5.3 cm LV Systolic Diameter PLAX 2.7 cm IVS Diastolic Thickness 1.1 cm 0.6 - 1.0 / 0.6 - 0.9 cm LVPW Diastolic Thickness 1.0 cm 0.6 - 1.0 / 0.6 - 0.9 cm LV Relative Wall Thickness 0.5 RV Internal Dim ED PLAX 3.7 cm LA Systolic Diameter LX 3.0 cm 3.0 - 4.0 / 2.7 - 3.8 cm LA Volume 56.2 cm??? 18 - 58 / 22 - 52 cm??? RV Diastolic Basal Diameter 4.4 cm 2.0 - 2.8 cm M-MODE Aortic Root Diameter MM 3.0 cm AV Cusp Separation MM 2.3 cm DOPPLER AV Peak Velocity 130.4 cm/s AV Peak Gradient 6.8 mmHg MV Area PHT 2.8 cm??? MV Deceleration Time 271.0 ms TR Peak Velocity 362.1 cm/s TR Peak Gradient 52.4 mmHg Right Ventricular Systolic Press 57.1 mmHg FINDINGS Left Ventricle Left ventricular ejection fraction is estimated at 55-60 %. Left ventricular cavity size normal. Borderline left ventricular hypertrophy. Right Ventricle Severe right ventricular dilatation. Severe pulmonary hypertension. Right Atrium Normal right atrial size. Left Atrium Normal left atrial size. No evidence for an atrial septal defect. Mitral Valve Mitral valve thickened. Mild mitral annular calcification. Trace mitral regurgitation. Aortic Valve Trileaflet aortic valve. Focal thickening of the aortic valve cusps. Tricuspid Valve Moderate tricuspid regurgitation. Pulmonic Valve Pulmonic valve not well visualized. Pericardium Normal pericardium. No pericardial effusion. Aorta Normal size aortic root and proximal ascending aorta. CONCLUSIONS Normal left ventricular dimension and systolic function Severely dilated right ventricle Severe pulmonary hypertension Moderate tricuspid regurgitation Previewed by: Dr. Jeremiah Villalta MD (Electronically Signed) Final Date: 03 January 2022 11:03
[2022-01-03 14:29] LABS: Calcium 7.5 mg/dL (8.4-10.2)
--- NOTE | 2022-01-03 18:43 | NM ---
EXAMINATION TYPE: NM pul vent and perfuse DATE OF EXAM: 01/03/2022 COMPARISON: NONE HISTORY: TECHNIQUE: Utilizing inhalation of 39.7 mCi Tc 99m DTPA aerosol and intravenous injection of 5.1 mCi of Tc 99m MAA, ventilation and perfusion images are acquired post injection in multiple projections. FINDINGS: There are numerous large matching ventilation perfusion defects in the lung [place] bilaterally. This appears worse on the right side compared to the left. There is no ventilation/perfusion mismatch. The chest x-ray today shows no pulmonary consolidation. IMPRESSION: Large matching defects. No ventilation/perfusion mismatch. Overall the perfusion abnormalities are sm aller than the ventilation abnormalities and this is consistent with severe bilateral airway disease. There is a low to intermediate probability of pulmonary embolism.
[2022-01-04] MEDS: SODIUM CHLORIDE 0.9% 1,000 ML IV SCH ×2 (00:47→09:43)
[2022-01-04] MEDS: MIDODRINE 5 MG TAB PO SCH ×3 (06:58→22:48)
--- NOTE | 2022-01-04 09:24 | P.PN ---
Subjective Shouldn't is seen for follow-up for acute kidney injury. He was admitted to the hospital with increased weakness and noted to have E. coli bacteremia and urinary tract infection. Patient has been hypotensive and maintained on IV fluids as well as midodrine. Urine output has been low. Serum creatinine increased to 3.69 today from 3.3 on initial admission. Blood pressure remains on the lower side. Ultrasound from yesterday showed evidence of bilateral hydronephrosis. A Marc catheter will be placed today. Objective - Vital Signs Vital signs: Vital Signs Temp 98.9 F 01/04/22 04:00 Pulse 69 01/04/22 04:00 Resp 19 01/04/22 04:00 BP 93/55 01/04/22 04:00 Pulse Ox 99 01/04/22 04:00 FiO2 Intake & Output 01/03/22 01/04/22 01/04/22 18:59 06:59 18:59 Intake Total 240 150 Output Total 6 6 Balance 234 144 Intake: Intake, IV Titration 150 Amount Sodium Chloride 0.9% 1, 150 000 ml @ 75 mls/hr IV . [id number] [facility] Rx#:[id number] Oral 240 Output: Stool 6 6 Other: Voiding Method External Catheter External Catheter # Voids 1 # Bowel Movements 1 1 - Exam Patient is awake, comfortable, not in any acute distress Examination of the heart S1 and S2 Examination lungs decreased breath sounds at the bases Abdomen is soft nontender Examination of the lower extremity shows no evidence of edema [employer]IAN exam grossly intact patient is moving all 4 extremities. - Labs CBC & Chem 7: 01/01/22 09:37 01/03/22 13:51 Labs: Abnormal Lab Results - Last 24 Hours (Table) 01/03/22 01/03/22 Range/Units 12:12 13:51 D-Dimer 17.73 H (<0.60) mg/L FEU Chloride 117 H (98-107) mmol/L Carbon Dioxide 20 L (22-30) mmol/L BUN 90 H (9-20) mg/dL Creatinine 3.69 H (0.66-1.25) mg/dL Glucose 140 H (74-99) mg/dL Calcium 7.5 L (8.4-10.2) mg/dL Microbiology - Last 24 Hours (Table) 01/01/22 11:46 Urine Culture - Final Urine,Voided Escherichia coli 01/01/22 12:50 Blood Culture Gram Stain - Final Blood Blood Culture - Final Escherichia coli 01/01/22 12:52 Blood Culture Gram Stain - Final Blood Blood Culture - Final Escherichia coli Assessment and Plan Assessment: 1. Acute kidney injury associated with hypotension and sepsis currently nonoliguric. Urine output is not accurately charted. Rule out urine retention. UA is suggestive of underlying UTI. Ultrasound showed evidence of bilateral hydronephrosis. Marc catheter to be placed today 2. Gram-negative sepsis with blood cultures growing E. coli and urine culture growing gram-negative bacilli 3. Lactic acidosis secondary to hypotension and sepsis 4. History of hypertension with blood pressure medications currently on hold 5. Coronary artery disease with history of cardiac catheterization previously 6. BPH maintained on Flomax 7. Bilateral hydronephrosis with bilateral nonobstructive calculi noted on ultrasound of the kidneys Plan: Place Marc catheter Continue with IV fluids Continue with midodrine Check labs today Consult urology Continue with antibiotics and continue to avoid nephrotoxic agents.
[2022-01-04] MEDS: ASPIRIN 81 MG PO SCH (09:38)
[2022-01-04] MEDS: FINASTERIDE 5 MG TAB PO SCH (09:38)
[2022-01-04] MEDS: ATORVASTATIN 80 MG TAB PO SCH (09:38)
[2022-01-04 09:50] LABS: Chol/HDL Ratio 4.39 Ratio; LDL Cholesterol,Calculated 45.6 mg/dL (0.0-131.0)
--- NOTE | 2022-01-04 10:10 | P.PN ---
Subjective Progress Note Date: 01/03/22 Principal diagnosis: Urinary tract infection/sepsis E. coli bacteremia Mild lactic acidemia secondary to urinary tract infection/sepsis Prostate cancer, diagnosed May 2020 49-year-old male who presents emergency department for generalized weakness. EMS states his been ongoing and getting worse over the last week and a half. Patient is a poor historian. Patient states he does have a history of high blood pressure but he did not take any of his high blood pressure medication today. Patient states he did take his pain medication. Patient denies any chest pain difficulty breathing shortness of breath. Patient denies headache patient denies numbness or weakness. Patient states he doesn't feel that bad currently. According to EMS patient was unable to stand at the home and he was so lightheaded there that he sat himself down the ground when they arrived as with a found him and he was not finding of any injuries. Patient denies any ab dominal pain patient denies nausea vomiting but states he does have chronic diarrhea. Lab data includes a white count 6.7, hemoglobin 9.7, hematocrit 32.4, and platelet count 174,000. PT 14.7 INR 1.4. Sodium 144, potassium 5.6, chlorides 116, CO2 20, BUN 79, creatinine 3.30. Lactic acid was 2.6. Troponin was 0.330. N-terminal proBNP is 17,300. Magnesium 1.5. AST 117, ALT 96. Urine is yellow and cloudy. Blood small positive. Leukocyte esterase was large positive. There was greater than 182 WBCs, and many WBC clumps, and many bacteria. Testing for coronavirus was negative. Chest x-ray was consistent with mild fluid overload. 01/03/2022 Patient is seen and evaluated with multiple family members at bedside; Blood cultures apparently did come back positive for Escherichia coli. His most recent blood pressure is 93/57. He's getting 3 L nasal cannula and saline at 75 mL an hour. No new labs today. Urine is showing gram-negative bacilli, not yet been identified. The blood cultures are showing Escherichia coli. The patient continues on IV Rocephin. He is feeling better everyday. Vital signs are reviewed patient remains afebrile, pulse 60, respiration 18 and blood pressure of 6/50 with O2 saturation of 94%; pro-calcitonin remains elevated at 33.1 Patient remains on IV Rocephin Objective - Vital Signs Vital signs: Vital Signs Temp 97.9 F 01/03/22 08:00 Pulse 52 L 01/03/22 08:00 Resp 18 01/03/22 08:00 BP 100/69 01/03/22 08:00 Pulse Ox 96 01/03/22 08:00 FiO2 Intake & Output 01/02/22 01/03/22 01/03/22 18:59 06:59 18:59 Intake Total 240 360 240 Output Total 3 250 3 Balance 237 110 237 Intake: Oral 240 360 240 Output: Urine 250 Stool 3 3 Other: Voiding Method External Catheter External Catheter External Catheter # Voids 2 - Exam GENERAL: The patient is alert and oriented x3, not in any acute distress. Well developed, well nourished. HEENT: Pupils are round and equally reacting to light. EOMI. No scleral icterus. No conjunctival pallor. Normocephalic, atraumatic. No pharyngeal erythema. No thyromegaly. CARDIOVASCULAR: S1 and S2 present. No murmurs, rubs, or gallops. PULMONARY: Chest is clear to auscultation, no wheezing or crackles. ABDOMEN: Soft, nontender, nondistended, normoactive bowel sounds. No palpable organomegaly. MUSCULOSKELETAL: No joint swelling or deformity. EXTREMITIES: No cyanosis, clubbing, or pedal edema. NEUROLOGICAL: Gross neurological examination did not reveal any focal deficits. SKIN: No rashes. - Labs CBC & Chem 7: 01/01/22 09:37 01/03/22 13:51 Labs: Abnormal Lab Results - Last 24 Hours (Table) 01/02/22 01/02/22 Range/Units 08:58 08:58 Procalcitonin 33.10 H (0.02-0.09) ng/mL Cortisol 43.0 H (3.1-22.4) ug/dL Microbiology - Last 24 Hours (Table) 01/01/22 11:46 Urine Culture - Preliminary Urine,Voided Gram Neg Bacilli 01/01/22 12:50 Blood Culture Gram Stain - Preliminary Blood Blood Culture - Preliminary Gram Neg Bacilli 01/01/22 12:52 Blood Culture Gram Stain - Preliminary Blood Blood Culture - Preliminary Escherichia coli Assessment and Plan Assessment: 1. UTI/sepsis - Patient has been placed on IV Rocephin; blood cultures and urine culture is done and pending - We will continue with current IV antibiotics and adjust therapy once culture results are available - Monitor CBC, CRP and pro-calcitonin 2. Lactic acidosis likely related to UTI versus dehydration - Patient did receive IV fluid bolus in ED; we will continue with IV fluids and monitor strict JEFRY's and daily weights; monitor lactic acid levels 3. Hypotension; volume depletion versus related to sepsis 4. Hypertension; patient takes atenolol 25 mg daily along with Zestril 20 mg daily; antihypertensive medications have been placed on hold until blood pressure improves 5. Hyperlipidemia; Lipitor 80 mg by mouth daily at bedtime 6. CAD; history of cardiac catheterization with stent placement 7. BPH; Flomax 0.4 mg twice a day DVT prophylaxis SCDs/subcu heparin CODE STATUS full code
--- NOTE | 2022-01-04 11:30 | P.GSCN ---
History of Present Illness Consult date: 01/04/22 Reason for Consult: Bilateral hydronephrosis, prostate cancer History of present illness: This is a 81-year-old male admitted to the hospital with weakness secondary to an E. coli UTI/bacteremia. Urology consulted for bilateral hydronephrosis. He has history of prostate cancer diagnosed back in May 2020, that showed a [place] 8 prostate cancer, option of treatment were discussed with the patient, he declined further therapy given his comorbidities, he has not followed up since 05/2020. Metastatic evaluation at time of diagnosis was negative, his most recent PSA was in March 2021 which was 42.5. On presentation he underwent a renal ultrasound that showed evidence of bilateral hydronephrosis. He denies any flank pain, but has been complaining of difficulty voiding, with a weak stream. Denies any gross hematuria or dysuria. Has been complaining of lower back pain for the past 5-6 months, and generalized weakness. Denies any focal weakness or numbness in lower extremity. No previous history of urinary retention. No history of kidney stones. CT from 2020 showed evidence of bilateral hydronephrosis. His creatinine is 3.6 of note creat was 3.3-3.5 in March of last year, and july of this year. Review of Systems - Constitutional Reports weakness - EENT Ears, nose, mouth and throat: Denies dysphagia - Cardiovascular Denies chest pain, Denies shortness of breath - Respiratory Denies cough, Denies 7 - Gastrointestinal Reports as per HPI - Genitourinary Denies dysuria, Denies flank pain, Denies urinary retention - Integumentary Denies rash, Denies unusual bruising - Neurological Denies headaches, Denies syncope Past Medical History Past Medical History: Cancer, Hyperlipidemia, Hypertension Additional Past Medical History / Comment(s): HX SKIN CANCER, DIFFICULTY URINATING AT NIGHT., AAA. History of Any Multi-Drug Resistant Organisms: None Reported Past Surgical History: Heart Catheterization With Stent, Orthopedic Surgery Additional Past Surgical History / Comment(s): PARTIAL RIGHT KNEE, HEART CATH (APPROX 20 YRS AGO) Past Anesthesia/Blood Transfusion Reactions: No Reported Reaction Date of Last Stent Placement:: ?1997 Past Psychological History: No Psychological Hx Reported Smoking Status: Former smoker Past Alcohol Use History: Rare Past Drug Use History: None Reported - Past Family History Father Family Medical History: Cancer Additional Family Medical History / Comment(s): SKIN CA Brother(s) Family Medical History: Cancer Additional Family Medical History / Comment(s): SKIN CANCER Medications and Allergies Home Medications Medication Instructions Recorded Confirmed Type Atorvastatin [Lipitor] 80 mg PO DAILY 09/08/17 01/01/22 History Tamsulosin HCl [Flomax] 0.4 mg PO BID 09/08/17 01/01/22 History atenoloL 25 mg PO DAILY 09/08/17 01/01/22 History lisinopriL [Zestril] 20 mg PO DAILY 09/08/17 01/01/22 History Aspirin EC [Ecotrin Low Dose] 81 mg PO DAILY 01/01/22 01/01/22 History Cyclobenzaprine [Flexeril] 10 mg PO HS PRN 01/01/22 01/01/22 History Dutasteride 0.5 mg PO DAILY 01/01/22 01/01/22 History HYDROcodone/APAP 5-325MG [[place] 1 tab PO TID PRN 01/01/22 01/01/22 History 5-325] Allergies Allergy/AdvReac Type Severity Reaction Status Date / Time No Known Allergies Allergy Verified 01/01/22 11:11 Surgical - Exam Vital Signs Temp Pulse Resp BP Pulse Ox 99.6 F 65 16 65/38 85 L 01/01/22 09:24 01/01/22 09:24 01/01/22 09:24 01/01/22 09:24 01/01/22 09:24 - General no distress, no pain - Eyes normal ocular movement - ENT normal nares, normal mucosa - Respiratory normal expansion, normal respiratory effort - Abdomen Abdomen: soft, tender (Lower quadrant), no distended - Neurologic normal sensation - Psychiatric oriented to time, oriented to person, oriented to place Results - Labs 01/01/22 09:37 01/03/22 13:51 Abnormal Lab Results - Last 24 Hours (Table) 01/02/22 01/03/22 01/03/22 Range/Units 08:58 12:12 13:51 D-Dimer 17.73 H (<0.60) mg/L FEU Chloride 117 H (98-107) mmol/L Carbon Dioxide 20 L (22-30) mmol/L BUN 90 H (9-20) mg/dL Creatinine 3.69 H (0.66-1.25) mg/dL Glucose 140 H (74-99) mg/dL Calcium 7.5 L (8.4-10.2) mg/dL HDL Cholesterol 20.90 L (40.00-60.00) mg/dL Microbiology - Last 24 Hours (Table) 01/01/22 11:46 Urine Culture - Final Urine,Voided Escherichia coli 01/01/22 12:50 Blood Culture Gram Stain - Final Blood Blood Culture - Final Escherichia coli 01/01/22 12:52 Blood Culture Gram Stain - Final Blood Blood Culture - Final Escherichia coli Diabetes panel 01/02/22 01/03/22 Range/Units 08:58 13:51 Sodium 144 (137-145) mmol/L Potassium 5.0 (3.5-5.1) mmol/L Chloride 117 H (98-107) mmol/L Carbon Dioxide 20 L (22-30) mmol/L BUN 90 H (9-20) mg/dL Creatinine 3.69 H (0.66-1.25) mg/dL Glucose 140 H (74-99) mg/dL Calcium 7.5 L (8.4-10.2) mg/dL Triglycerides 126.00 (0.00-149.00) mg/dL HDL Cholesterol 20.90 L (40.00-60.00) mg/dL Calcium panel 01/03/22 Range/Units 13:51 Calcium 7.5 L (8.4-10.2) mg/dL Pituitary panel 01/03/22 Range/Units 13:51 Sodium 144 (137-145) mmol/L Potassium 5.0 (3.5-5.1) mmol/L Chloride 117 H (98-107) mmol/L Carbon Dioxide 20 L (22-30) mmol/L BUN 90 H (9-20) mg/dL Creatinine 3.69 H (0.66-1.25) mg/dL Glucose 140 H (74-99) mg/dL Calcium 7.5 L (8.4-10.2) mg/dL Adrenal panel 01/03/22 Range/Units 13:51 Sodium 144 (137-145) mmol/L Potassium 5.0 (3.5-5.1) mmol/L Chloride 117 H (98-107) mmol/L Carbon Dioxide 20 L (22-30) mmol/L BUN 90 H (9-20) mg/dL Creatinine 3.69 H (0.66-1.25) mg/dL Glucose 140 H (74-99) mg/dL Calcium 7.5 L (8.4-10.2) mg/dL Assessment and Plan Assessment: 81-year-old admitted to the hospital with E. coli UTI, causing bacteremia. Urology discussed that for bilateral hydronephrosis, I reviewed his ultrasound, and his CT scan from May 2020. Hydronephrosis appears chronic. Of note he has history of [place] 8 prostate cancer diagnosed back in May 2020 has declined undergoing treatment due to his comorbidities. PSA is 42.5 in 03/2021. his creat is 3. 6 of note it was 3.3-3.5 in July. Given his low back pain, and difficulty voiding I'm going to repeat his metastatic evaluation . We'll also recommend bladder decompression, but of note his hydronephrosis is chronic as it was present on imaging in May 2020, creatinine is stable over the past year. -CT abdomen and pelvis, and a bone scan -Repeat his PSA -Recommend Marc insertion for bladder decompression
--- NOTE | 2022-01-04 14:04 | P.PN ---
Subjective Progress Note Date: 01/04/22 HISTORY OF PRESENT ILLNESS: This is an 81-year-old gentleman with a past medical history significant for hypertension and dyslipidemia possibly history of coronary artery disease, the patient somewhat is poor historian, was admitted to the hospital with generalized weakness and fatigue. He was diagnosed with urosepsis. We consulted to see the patient because of abnormal cardiac enzymes. He was in acute renal failure. He also was slightly hypotensive and bradycardic. We felt that the abnormal cardiac enzymes are related to the above reasons. Beside that his EKG did not show any ischemic ST or T-wave abnormalities and more importantly he did not have any symptoms of chest pain or chest discomfort. He was seen this morning. He remains asymptomatic. His mentation has somewhat improved. His pressure continues to be soft with me about 60 mmHg. He is not experiencing any chest pain or chest discomfort or shortness of breath. He seems to be euvolemic on examination. He continues to be getting treated for UTI. He underwent an echocardiogram and we will follow-up with that. Meanwhile continue the current medical regimen and continue considering conservative approach for the abnormal cardiac enzymes. Follow up on his echocardiogram 01/04/2022 Patient examined this morning at the bedside. Patient denies any chest pain or pressure. He denies shortness of breath. Echocardiogram completed revealed ejection fraction 55-60% with no wall motion abnormalities noted. PHYSICAL EXAM: VITAL SIGNS: Reviewed. GENERAL: Well-developed in no acute distress. NECK: Supple. No JVD or thyromegaly LUNGS: Respirations even and unlabored. Lungs essentially clear to auscultation bilaterally. HEART: Regular rate and rhythm. S1 and S2 heard. EXTREMITIES: Normal range of motion. No clubbing or cyanosis. Peripheral pulses intact. No lower extremity edema ASSESSMENT: UTI with sepsis Hypotension, secondary to above, history of coronary artery disease with previous PCI, details unknown Acute on chronic kidney disease Abnormal troponins, secondary to sepsis, no evidence of acute coronary syndrome PLAN: Continue current cardiac medications Patient is currently stable from a cardiac perspective We will sign off. Please reconsult if needed. Nurse practitioner note has been reviewed by physician. Signing provider agrees with the documented findings, assessment, and plan of care. Objective - Vital Signs Vital signs: Vital Signs Temp 97.5 F L 01/04/22 12:00 Pulse 57 L 01/04/22 12:00 Resp 18 01/04/22 12:00 BP 103/55 01/04/22 12:00 Pulse Ox 94 L 01/04/22 12:00 FiO2 Intake & Output 01/03/22 01/04/22 01/04/22 18:59 06:59 18:59 Intake Total 240 150 200 Output Total 6 6 253 Balance 234 144 -53 Intake: Intake, IV Titration 150 100 Amount Sodium Chloride 0.9% 1, 150 000 ml @ 75 mls/hr IV . [id number] [facility] Rx#:[id number] 2 gm In 100 Sodium Chloride 0.9% 50 ml @ 100 mls/hr IVPB Q24HR [facility] Rx#:[id number] Oral 240 100 Output: Urine 250 Stool 6 6 3 Other: Voiding Method External Catheter External Catheter External Catheter # Voids 1 # Bowel Movements 1 1 - Labs CBC & Chem 7: 01/01/22 09:37 01/03/22 13:51 Labs: Abnormal Lab Results - Last 24 Hours (Table) 01/02/22 01/03/22 Range/Units 08:58 13:51 Chloride 117 H (98-107) mmol/L Carbon Dioxide 20 L (22-30) mmol/L BUN 90 H (9-20) mg/dL Creatinine 3.69 H (0.66-1.25) mg/dL Glucose 140 H (74-99) mg/dL Calcium 7.5 L (8.4-10.2) mg/dL HDL Cholesterol 20.90 L (40.00-60.00) mg/dL Microbiology - Last 24 Hours (Table) 01/01/22 11:46 Urine Culture - Final Urine,Voided Escherichia coli 01/01/22 12:50 Blood Culture Gram Stain - Final Blood Blood Culture - Final Escherichia coli 01/01/22 12:52 Blood Culture Gram Stain - Final Blood Blood Culture - Final Escherichia coli
--- NOTE | 2022-01-04 14:18 | P.PN ---
Subjective Progress Note Date: 01/04/22 81-year-old male who was seen in the emergency room for weakness. He was seen there by Dr. Weber. The patient apparently felt weak on his feet, and had a hard time standing up, apparently feeling that she was going to pass out. EMS brought him into the emergency room where he was evaluated. He was thought to possibly have urinary tract infection/urosepsis. The patient is currently in the ER, room #6. CO2 liters of fluid, and is on 2 L of oxygen. He apparently has a history of hypertension, hyperlipidemia, and prostate cancer. He did not take his blood pressure medications today. We are asked to see him for possible admission to the intensive care unit. Currently, his blood pressure is about 90 systolic. Lab data includes a white count 6.7, hemoglobin 9.7, hematocrit 32.4, and platelet count 174,000. PT 14.7 INR 1.4. Sodium 144, potassium 5.6, chlorides 116, CO2 20, BUN 79, creatinine 3.30. Lactic acid was 2.6. Troponin was 0.330. N-terminal proBNP is 17,300. Magnesium 1.5. AST 117, ALT 96. Urine is yellow and cloudy. Blood small positive. Leukocyte esterase was large positive. There was greater than 182 WBCs, and many WBC clumps, and many bacteria. Testing for coronavirus was negative. Chest x-ray was consistent with mild fluid overload. Progress note dated 01/02/2022. 81-year-old male seen in consultation yesterday in the emergency department. He was thought to have urinary tract infection/urosepsis with hypotension. He has a history of hypertension, hyperlipidemia, and prostate cancer. The patient was admitted to the general medical floor. Currently, he is on a couple liters of oxygen. He is receiving Rocephin. Blood pressure is still a little soft. Today he is given midodrine 10 mg 3 times a day, a stat cortisol level, and hydrocortisone, 50 mg IV push every 6 hours. Sodium 142, potassium 5.6, chlorides 116, CO2 20, BUN 88, creatinine 3.52. Troponins were 0.270 and 0.270. Progress note dated 01/03/2022. 81-year-old male seen in consultation, initially in the emergency department. He was thought to have a urinary tract infection/urosepsis. Blood cultures apparently did come back positive for Escherichia coli. His most recent blood pressure is 93/57. He's getting 3 L nasal cannula and saline at 75 mL an hour. No new labs today. Urine is showing gram-negative bacilli, not yet been identified. The blood cultures are showing Escherichia coli. The patient continues on IV Rocephin. He is feeling better everyday. On 01/04/2022, the patient is being seen for a follow-up. As mentioned earlier, this is a case of prostate cancer, obstructive uropathy and secondary UTI and urosepsis. The patient has possible cultures with E. coli and the patient remains on IV Rocephin at a dose of 2 g every 24 hours. The patient for now is hemodynamically stable. The patient is afebrile. Nevertheless, he is quite lethargic and weak. A Marc catheter was inserted today and the patient was found to have purulent urine output. The patient has still an acute kidney injury. Creatinine is on the rise and is currently up to 3.69 with a mean of 90 and his sodium level is at 144. The patient has a potassium level of 5.0. His oral intake is minimal at this point in time. No nausea. No emesis. No chest pain. Occasional congested cough. He is receiving normal saline at rate of 75 mL an hour. Urologist on the case and the patient has not been offered any treatment regarding his prostate cancer because of his comorbidities. He has also a large intra-abdominal aortic aneurysm and based on the ultrasound of the abdomen, the patient has a 6.7 cm abdominal aortic aneurysm along with bilateral hydronephrosis. There was a concern for pulmonary embolism based on elevated d- dimer. The patient was given a VQ scan and there was no ventilation perfusion mismatch and this was called to be of a low probability. Objective - Vital Signs Vital signs: Vital Signs Temp 98.9 F 01/04/22 04:00 Pulse 69 01/04/22 04:00 Resp 19 01/04/22 04:00 BP 93/55 01/04/22 04:00 Pulse Ox 99 01/04/22 04:00 FiO2 Intake & Output 01/03/22 01/04/22 01/04/22 18:59 06:59 18:59 Intake Total 240 150 Output Total 6 6 Balance 234 144 Intake: Intake, IV Titration 150 Amount Sodium Chloride 0.9% 1, 150 000 ml @ 75 mls/hr IV . [id number] [facility] Rx#:[id number] Oral 240 Output: Stool 6 6 Other: Voiding Method External Catheter External Catheter # Voids 1 # Bowel Movements 1 1 - Exam No acute distress, oriented 3. No respiratory distress, conversational dyspnea, or use of accessory muscles. 3 L saturation is 96%. HEENT examination is grossly unremarkable. Neck supple. Full range of motion. No adenopathy thyromegaly or neck vein distention. Cardiovascular examination reveals regular rhythm rate. S1-S2 normal. No S3 or S4. No discernible murmur noted. Heart rate 60 bpm. Lungs reveal mostly clear breath sounds. Breath sounds are equal bilaterally. Scattered crackles are noted. Saturations are 96 %. Abdomen soft bowel sounds are heard. No masses or tenderness. Extremities are intact. No cyanosis clubbing or edema. Skin is without rash or lesion. Neurologic examination is brief but nonfocal. - Labs CBC & Chem 7: 01/01/22 09:37 01/03/22 13:51 Labs: Abnormal Lab Results - Last 24 Hours (Table) 01/02/22 01/03/22 01/03/22 Range/Units 08:58 12:12 13:51 D-Dimer 17.73 H (<0.60) mg/L FEU Chloride 117 H (98-107) mmol/L Carbon Dioxide 20 L (22-30) mmol/L BUN 90 H (9-20) mg/dL Creatinine 3.69 H (0.66-1.25) mg/dL Glucose 140 H (74-99) mg/dL Calcium 7.5 L (8.4-10.2) mg/dL HDL Cholesterol 20.90 L (40.00-60.00) mg/dL Microbiology - Last 24 Hours (Table) 01/01/22 11:46 Urine Culture - Final Urine,Voided Escherichia coli 01/01/22 12:50 Blood Culture Gram Stain - Final Blood Blood Culture - Final Escherichia coli 01/01/22 12:52 Blood Culture Gram Stain - Final Blood Blood Culture - Final Escherichia coli Assessment and Plan Plan: Urinary tract infection/urosepsis, secondary to Escherichia coli. Before the catheter was inserted today and the urine output is purulence for now. The patient remains on IV Rocephin. Patient is also on IV fluids normal saline at rate of 75 mL an hour. Hemodynamically stable. Mild lactic acidemia secondary to urinary tract infection/sepsis. Prostate cancer, diagnosed May 2020. [facility]. His PSAs elevated the neurologist on the case. History of hypertension. History of hyperlipidemia. History of skin cancer. History of CAD with previous heart catheterization/stent. Prior history of tobacco use. AAA aortic aneurysm , large measuring 6.7 cm in size. Plan: Keep the Marc catheter in place Continue normal saline at the rate of 75 mL an hour Monitor renal function Urologist on the case and the patient is known to have prostate cancer Overall respiratory status is stable and the patient is currently on oxygen at 4 L and the VQ scan is of a low probability for pulmonary embolism. Elevation of the d-dimer is related to underlying infection/sepsis Poor prognosis with poor performance and functional status. We'll continue to follow
--- NOTE | 2022-01-04 14:33 | P.PN ---
Subjective Progress Note Date: 01/04/22 Principal diagnosis: Urinary tract infection/sepsis E. coli bacteremia Mild lactic acidemia secondary to urinary tract infection/sepsis Prostate cancer, diagnosed May 2020 49-year-old male who presents emergency department for generalized weakness. EMS states his been ongoing and getting worse over the last week and a half. Patient is a poor historian. Patient states he does have a history of high blood pressure but he did not take any of his high blood pressure medication today. Patient states he did take his pain medication. Patient denies any chest pain difficulty breathing shortness of breath. Patient denies headache patient denies numbness or weakness. Patient states he doesn't feel that bad currently. According to EMS patient was unable to stand at the home and he was so lightheaded there that he sat himself down the ground when they arrived as with a found him and he was not finding of any injuries. Patient denies any ab dominal pain patient denies nausea vomiting but states he does have chronic diarrhea. Lab data includes a white count 6.7, hemoglobin 9.7, hematocrit 32.4, and platelet count 174,000. PT 14.7 INR 1.4. Sodium 144, potassium 5.6, chlorides 116, CO2 20, BUN 79, creatinine 3.30. Lactic acid was 2.6. Troponin was 0.330. N-terminal proBNP is 17,300. Magnesium 1.5. AST 117, ALT 96. Urine is yellow and cloudy. Blood small positive. Leukocyte esterase was large positive. There was greater than 182 WBCs, and many WBC clumps, and many bacteria. Testing for coronavirus was negative. Chest x-ray was consistent with mild fluid overload. 01/03/2022 Patient is seen and evaluated with multiple family members at bedside; Blood cultures apparently did come back positive for Escherichia coli. His most recent blood pressure is 93/57. He's getting 3 L nasal cannula and saline at 75 mL an hour. No new labs today. Urine is showing gram-negative bacilli, not yet been identified. The blood cultures are showing Escherichia coli. The patient continues on IV Rocephin. He is feeling better everyday. Vital signs are reviewed patient remains afebrile, pulse 60, respiration 18 and blood pressure of 6/50 with O2 saturation of 94%; pro-calcitonin remains elevated at 33.1 Patient remains on IV Rocephin 01/04/2022 Patient is seen and evaluated with family members at bedside; denies any specific complaints Evaluated this morning by urology for bilateral hydronephrosis on renal ultrasound; CT of abdomen from May 2020 was reviewed which also revealed bilateral hydronephrosis which seems to be chronic; urology recommending to continue with Marc catheter for bladder decompensation; repeat PSA is ordered; CT of the abdomen and pelvis and bone scan is ordered to follow-up on prostate cancer Patient's urine culture and blood culture reveals E. coli; patient remains on IV antibiotics in form of Rocephin 2 g every 24 hours Patient remains on IV fluids in form of normal saline at a rate of 75 mL an hour for elevated creatinine of 3.69 D-dimer found to be elevated; patient underwent VQ scan which is negative for PE Objective - Vital Signs Vital signs: Vital Signs Temp 98.9 F 01/04/22 04:00 Pulse 69 01/04/22 04:00 Resp 19 01/04/22 04:00 BP 93/55 01/04/22 04:00 Pulse Ox 99 01/04/22 04:00 FiO2 Intake & Output 01/03/22 01/04/22 01/04/22 18:59 06:59 18:59 Intake Total 240 150 Output Total 6 6 Balance 234 144 Intake: Intake, IV Titration 150 Amount Sodium Chloride 0.9% 1, 150 000 ml @ 75 mls/hr IV . [id number] [facility] Rx#:[id number] Oral 240 Output: Stool 6 6 Other: Voiding Method External Catheter External Catheter # Voids 1 # Bowel Movements 1 1 - Exam GENERAL: The patient is alert and oriented x3, not in any acute distress. Well developed, well nourished. HEENT: Pupils are round and equally reacting to light. EOMI. No scleral icterus. No conjunctival pallor. Normocephalic, atraumatic. No pharyngeal erythema. No thyromegaly. CARDIOVASCULAR: S1 and S2 present. No murmurs, rubs, or gallops. PULMONARY: Chest is clear to auscultation, no wheezing or crackles. ABDOMEN: Soft, nontender, nondistended, normoactive bowel sounds. No palpable organomegaly. MUSCULOSKELETAL: No joint swelling or deformity. EXTREMITIES: No cyanosis, clubbing, or pedal edema. NEUROLOGICAL: Gross neurological examination did not reveal any focal deficits. SKIN: No rashes. - Labs CBC & Chem 7: 01/01/22 09:37 01/03/22 13:51 Labs: Abnormal Lab Results - Last 24 Hours (Table) 01/02/22 01/03/22 01/03/22 Range/Units 08:58 12:12 13:51 D-Dimer 17.73 H (<0.60) mg/L FEU Chloride 117 H (98-107) mmol/L Carbon Dioxide 20 L (22-30) mmol/L BUN 90 H (9-20) mg/dL Creatinine 3.69 H (0.66-1.25) mg/dL Glucose 140 H (74-99) mg/dL Calcium 7.5 L (8.4-10.2) mg/dL HDL Cholesterol 20.90 L (40.00-60.00) mg/dL Microbiology - Last 24 Hours (Table) 01/01/22 11:46 Urine Culture - Final Urine,Voided Escherichia coli 01/01/22 12:50 Blood Culture Gram Stain - Final Blood Blood Culture - Final Escherichia coli 01/01/22 12:52 Blood Culture Gram Stain - Final Blood Blood Culture - Final Escherichia coli Assessment and Plan Assessment: 1. UTI/sepsis - Patient has been placed on IV Rocephin; blood cultures and urine culture is done and pending - We will continue with current IV antibiotics and adjust therapy once culture results are available - Monitor CBC, CRP and pro-calcitonin 2. Lactic acidosis likely related to UTI versus dehydration - Patient did receive IV fluid bolus in ED; we will continue with IV fluids and monitor strict JEFRY's and daily weights; monitor lactic acid levels 3. Hypotension; volume depletion versus related to sepsis 4. Hypertension; patient takes atenolol 25 mg daily along with Zestril 20 mg daily; antihypertensive medications have been placed on hold until blood pressure improves 5. Hyperlipidemia; Lipitor 80 mg by mouth daily at bedtime 6. CAD; history of cardiac catheterization with stent placement 7. BPH; Flomax 0.4 mg twice a day DVT prophylaxis SCDs/subcu heparin CODE STATUS full code
--- NOTE | 2022-01-04 15:35 | CT ---
EXAMINATION TYPE: CT renal stones wo con CT DLP: 582.4 mGycm, Automated exposure control for dose reduction was used. DATE OF EXAM: 01/04/2022 3:10 PM COMPARISON: CT abdomen pelvis 07/23/2020. CLINICAL INDICATION:Male, 81 years old with history of Prostate cancer, hydronephrosis; flank pain TECHNIQUE: Renal stone protocol CT of the abdomen and pelvis without IV or oral contrast. Lack of IV or oral contrast limits evaluation of solid and hollow organ viscera. Coronal and sagittal reformats were performed. FINDINGS: LOWER CHEST: Small bilateral pleural effusions with associated atelectasis. ABDOMEN LIVER: Unremarkable noncontrast appearance. GALLBLADDER AND BILE DUCTS: Cholelithiasis without definitive surrounding inflammatory changes. No bi liary ductal dilatation. PANCREAS: Unremarkable noncontrast appearance. SPLEEN: Unremarkable. ADRENAL GLANDS: Unremarkable. KIDNEYS AND URETERS: Mild bilateral hydroureteronephrosis which is not significantly change from prio r examination. Obstructive 4 mm calculus at the right ureterovesical junction. Additional 4 mm calcul us in the distal right ureter. No calculus demonstrated within the left ureter. Stable left superior pole 1.9 cm hyperdense lesion posteriorly representing a hemorrhagic/pronation cyst. Nonspecific [place] ateral perinephric fat stranding. PELVIS BLADDER: Nondistended with Marc catheter in place. REPRODUCTIVE: Unremarkable. ABDOMEN & PELVIS STOMACH AND BOWEL: Stomach is unremarkable. Diverticulum involving the second portion the duodenum. N o focal wall thickening or surrounding inflammatory changes. Distal colonic diverticulosis without de finitive evidence for acute diverticulitis. No evidence of bowel obstruction. PERITONEUM: No pneumoperitoneum. Small volume ascites throughout the abdomen and pelvis. Mesenteric c ongestion. VASCULATURE: Atherosclerotic calcification of the aorta and its branches. Severe atherosclerotic calc ification of the bilateral common iliac arteries. 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 Post surgical changes wi th endovascular graft within the mid to distal aorta. There is a aneurysm suggested. The graft again demonstrated measuring up to 7.3 cm which is increased from prior examination when it measured 6.5 cm . Graft below this shows no aneurysm. MUSCULOSKELETAL: No acute osseous abnormalities. New sclerotic lesion involving the L2 vertebral body . Multiple lytic lesions demonstrated throughout the osseous structures is examples including a 1.4 c m lesion within the L3 vertebral body, a 0.9 cm lesion within the T10 vertebral body lesion. Heteroge nous attenuation throughout the visualized spine with regions of lucency. LYMPH NODES: No gross evidence for lymphadenopathy. SOFT TISSUE/ABDOMINAL WALL: Diffuse anasarca. IMPRESSION: 1. Mild bilateral hydroureteronephrosis which is similar to prior examination on 07/23/2020. There is an obstructing for 4 mm calculus at the right uterovesical junction with an additional 4 mm calculus in the distal right ureter. No obstructing calculus demonstrated within the left ureter. 2. Increased size of descending thoracic aortic and abdominal aortic aneurysms as described above. Po stsurgical changes of the infrarenal abdominal aorta with stent graft. 3. New sclerotic lesion within the L2 vertebral body with multiple lytic lesions demonstrated through out the visualized osseous structures. Findings may represent metastatic disease and/or multiple myel betsy. Correlation with planned nuclear medicine bone scan is recommended. 4. Small volume ascites with diffuse anasarca. 5. Cholelithiasis. 6. Small bilateral pleural effusions associated atelectasis.
[2022-01-04] MEDS ORDERED: ACETAMINOPHEN TAB 325 MG TAB PO PRN (20:14)
[2022-01-04 20:45] LABS: Glucose,Whole Blood 91 mg/dL (70-110)
[2022-01-04 20:58] LABS: ABG Base Excess -10.9 mmol/L; ABG HCO3 15 mmol/L (21-25); ABG Oxygen Saturation 99.6 % (94-97); ABG PCO2 30 mmHg (35-45); ABG PH 7.31 (7.35-7.45); ABG PO2 136 mmHg (83-108); ABG TCO2 16 mmol/L (19-24); Allen Test Performed? Yes
--- NOTE | 2022-01-04 21:22 | XR ---
EXAMINATION TYPE: XR chest 1V DATE OF EXAM: 01/04/2022 9:07 PM COMPARISON: Chest radiographs from 01/01/2022 TECHNIQUE: XR chest 1V Frontal view of the chest. CLINICAL INDICATION:Male, 81 years old with history of increasing SOB; FINDINGS: Lungs/Pleura: Enlarging right pleural effusion left basilar airspace opacities which are increased. N o evidence of pneumothorax. Pulmonary vascularity: Unremarkable. Heart/mediastinum: Cardiomediastinal silhouette is unremarkable. Musculoskeletal: No acute osseous pathology. IMPRESSION: 1. Enlarging right pleural effusion 2. Suspected developing left lower lobe airspace disease.
[2022-01-04 21:24] LABS: Basophils # (A) 0.1 k/uL (0-0.2); Basophils % (A) 0 %; Eosinophils # (A) 0.1 k/uL (0-0.7); Eosinophils % (A) 0 %; HCT 39.8 % (39.0-53.0); HGB 11.6 gm/dL (13.0-17.5); Hypochromasia Marked; Lymphocytes # (A) 0.8 k/uL (1.0-4.8); Lymphocytes % (A) 4 %; MCH 30.7 pg (25.0-35.0); MCHC 29.1 g/dL (31.0-37.0); MCV 105.5 fL (80.0-100.0); Macrocytosis Moderate; Mean Platelet Volume 9.6; Monocytes # (A) 0.8 k/uL (0-1.0); Monocytes % (A) 4 %; Neutrophils % (A) 90 %; Platelet Count 177 k/uL (150-450); RBC 3.77 m/uL (4.30-5.90); WBC 18.9 k/uL (3.8-10.6)
[2022-01-04 21:51] LABS: Albumin 2.7 g/dL (3.5-5.0); Calcium 8.5 mg/dL (8.4-10.2); Potassium 4.8 mmol/L (3.5-5.1); Total Bilirubin 0.2 mg/dL (0.2-1.3); Total Protein 5.4 g/dL (6.3-8.2)
--- NOTE | 2022-01-04 21:51 | CT ---
EXAMINATION TYPE: CT abdomen pelvis wo con CT DLP: 668 mGycm, Automated exposure control for dose reduction was used. DATE OF EXAM: 01/04/2022 9:32 PM COMPARISON: CT earlier today 01/04/2022 CLINICAL INDICATION:Male, 81 years old with history of abd pain; TECHNIQUE: Axial CT of the abdomen and pelvis. Sagittal and coronal reformats were created on a [employer] workstation. Contrast used: none Oral contrast used: None FINDINGS: LOWER CHEST: Small bilateral pleural effusions with associated atelectasis. ABDOMEN LIVER: Unremarkable noncontrast appearance. GALLBLADDER AND BILE DUCTS: Cholelithiasis without definitive surrounding inflammatory changes. No bi liary ductal dilatation. PANCREAS: Unremarkable noncontrast appearance. SPLEEN: Unremarkable. ADRENAL GLANDS: Unremarkable. KIDNEYS AND URETERS: Similar findings to the earlier in the day. Mild bilateral hydroureteronephrosis which is not significantly change from prior examination. Obstructive 4 mm calculus at the right ure terovesical junction. Additional 4 mm calculus in the distal right ureter. No calculus demonstrated w ithin the left ureter. Stable left superior pole 1.9 cm hyperdense lesion posteriorly representing a hemorrhagic/pronation cyst. Nonspecific bilateral perinephric fat stranding. PELVIS BLADDER: Nondistended with Marc catheter in place. Focus of gas likely representing possibly cathete r changes. REPRODUCTIVE: Unremarkable. ABDOMEN & PELVIS STOMACH AND BOWEL: Second portion duodenal diverticulum. No bowel wall thickening. There is questiona ble wall thickening of the sigmoid colon with inflammation changes. Distal colonic diverticulosis wit hout definitive evidence for acute diverticulitis. No evidence of bowel obstruction. PERITONEUM: No pneumoperitoneum. Small volume ascites throughout the abdomen and pelvis. Mesenteric c ongestion. VASCULATURE: Atherosclerotic calcification of the aorta and its branches. Severe atherosclerotic calc ification of the bilateral common iliac arteries. 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 Post surgical changes wi th endovascular graft within the mid to distal aorta. There is a aneurysm suggested. The graft again demonstrated measuring up to 7.3 cm which is increased from prior examination when it measured 6.5 cm . Graft below this shows no aneurysm. MUSCULOSKELETAL: No acute osseous abnormalities. New sclerotic lesion involving the L2 vertebral body . Multiple lytic lesions demonstrated throughout the osseous structures is examples including a 1.4 c m lesion within the L3 vertebral body, a 0.9 cm lesion within the T10 vertebral body lesion. Heteroge nous attenuation throughout the visualized spine with regions of lucency. LYMPH NODES: No gross evidence for lymphadenopathy. SOFT TISSUE/ABDOMINAL WALL: Diffuse anasarca. IMPRESSION: 1. Circumferential wall thickening of the sigmoid colon and descending colon, correlate for colitis. 2. Perinephric inflammation changes correlate for ascending infection in the setting of pyelonephriti s.
[2022-01-04] MEDS ORDERED: IPRATROPIUM-ALBUTEROL 3 ML NEB INHALATION PRN (22:39)
[2022-01-04] MEDS: MORPHINE SULFATE 2 MG/ML SYRINGE IVP PRN (22:51)
[2022-01-05] MEDS: SODIUM CHLORIDE 0.9% 1,000 ML IV SCH (01:43)
[2022-01-05] MEDS: MORPHINE SULFATE 2 MG/ML SYRINGE IVP PRN ×2 (06:42→14:16)
[2022-01-05] MEDS: MIDODRINE 5 MG TAB PO SCH ×3 (06:43→17:27)
[2022-01-05 09:17] LABS: Basophils # (A) 0.1 k/uL (0-0.2); Basophils % (A) 0 %; Eosinophils % (A) 0 %; HCT 38.6 % (39.0-53.0); Hypochromasia Marked; Lymphocytes # (A) 0.6 k/uL (1.0-4.8); Lymphocytes % (A) 3 %; MCH 30.4 pg (25.0-35.0); MCHC 28.4 g/dL (31.0-37.0); MCV 107.2 fL (80.0-100.0); Macrocytosis Marked; Mean Platelet Volume 9.8; Monocytes # (A) 0.8 k/uL (0-1.0); Monocytes % (A) 4 %; Neutrophils # (A) 16.7 k/uL (1.3-7.7); Neutrophils % (A) 91 %; Platelet Count 149 k/uL (150-450); RDW 15.6 % (11.5-15.5); WBC 18.4 k/uL (3.8-10.6)
[2022-01-05 09:30] LABS: Calcium 8.5 mg/dL (8.4-10.2); Potassium 4.9 mmol/L (3.5-5.1)
[2022-01-05] MEDS: ASPIRIN 81 MG PO SCH (09:40)
[2022-01-05] MEDS: ATORVASTATIN 80 MG TAB PO SCH (09:40)
[2022-01-05] MEDS: FINASTERIDE 5 MG TAB PO SCH (09:40)
--- NOTE | 2022-01-05 10:59 | P.PN ---
Subjective Shouldn't is seen for follow-up for acute kidney injury. He was admitted to the hospital with increased weakness and noted to have E. coli bacteremia and urinary tract infection. Patient has been hypotensive and maintained on IV fluids as well as midodrine. Urine output has been low. Serum creatinine had increased to 3.8 yesterday but it is down to 3.6 today. Ultrasound showed evidence of bilateral hydronephrosis. A Marc catheter has been placed and patient was evaluated by urology as well. This morning patient is noted to have blood in his urine in the Marc catheter. He denies any significant complaints. Blood pressure seems to have improved slightly. Objective - Vital Signs Vital signs: Vital Signs Temp 97.3 F L 01/05/22 08:50 Pulse 72 01/05/22 08:50 Resp 20 01/05/22 08:50 BP 106/58 01/05/22 08:50 Pulse Ox 93 L 01/05/22 08:50 FiO2 Intake & Output 01/04/22 01/05/22 01/05/22 18:59 06:59 18:59 Intake Total 200 120 Output Total 456 6 Balance -256 114 Intake: Intake, IV Titration 100 Amount cefTRIAXone 2 gm In 100 Sodium Chloride 0.9% 50 ml @ 100 mls/hr IVPB Q24HR [facility] Rx#:[id number] Oral 100 120 Output: Urine 450 Stool 6 6 Other: Voiding Method External Catheter External Catheter Indwelling Catheter - Exam Patient is awake, comfortable, not in any acute distress Examination of the heart S1 and S2 Examination lungs decreased breath sounds at the bases Abdomen is soft nontender Examination of the lower extremity shows no evidence of edema WHEEL BRAIDER exam grossly intact patient is moving all 4 extremities. - Labs CBC & Chem 7: 01/05/22 08:43 01/05/22 08:43 Labs: Abnormal Lab Results - Last 24 Hours (Table) 01/04/22 01/04/22 01/04/22 Range/Units 20:56 21:11 21:11 WBC 18.9 H (3.8-10.6) k/uL RBC 3.77 L (4.30-5.90) m/uL Hgb 11.6 L (13.0-17.5) gm/dL Hct (39.0-53.0) % MCV 105.5 H (80.0-100.0) fL MCHC 29.1 L (31.0-37.0) g/dL RDW (11.5-15.5) % Plt Count (150-450) k/uL Neutrophils # 17.0 H (1.3-7.7) k/uL Lymphocytes # 0.8 L (1.0-4.8) k/uL Macrocytosis ABG pH 7.31 L (7.35-7.45) ABG pCO2 30 L (35-45) mmHg ABG pO2 136 H (83-108) mmHg ABG HCO3 15 L (21-25) mmol/L ABG Total CO2 16 L (19-24) mmol/L ABG O2 Saturation 99.6 H (94-97) % Sodium 147 H (137-145) mmol/L Chloride 118 H (98-107) mmol/L Carbon Dioxide 18 L (22-30) mmol/L BUN 98 H (9-20) mg/dL Creatinine 3.88 H (0.66-1.25) mg/dL AST 121 H (17-59) U/L ALT 111 H (4-49) U/L Alkaline Phosphatase 132 H (38-126) U/L Total Protein 5.4 L (6.3-8.2) g/dL Albumin 2.7 L (3.5-5.0) g/dL 01/05/22 01/05/22 Range/Units 08:43 08:43 WBC 18.4 H (3.8-10.6) k/uL RBC 3.60 L (4.30-5.90) m/uL Hgb 11.0 L (13.0-17.5) gm/dL Hct 38.6 L (39.0-53.0) % MCV 107.2 H (80.0-100.0) fL MCHC 28.4 L (31.0-37.0) g/dL RDW 15.6 H (11.5-15.5) % Plt Count 149 L (150-450) k/uL Neutrophils # 16.7 H (1.3-7.7) k/uL Lymphocytes # 0.6 L (1.0-4.8) k/uL Macrocytosis Marked A ABG pH (7.35-7.45) ABG pCO2 (35-45) mmHg ABG pO2 (83-108) mmHg ABG HCO3 (21-25) mmol/L ABG Total CO2 (19-24) mmol/L ABG O2 Saturation (94-97) % Sodium 148 H (137-145) mmol/L Chloride 118 H (98-107) mmol/L Carbon Dioxide 19 L (22-30) mmol/L BUN 103 H* (9-20) mg/dL Creatinine 3.67 H (0.66-1.25) mg/dL AST (17-59) U/L ALT (4-49) U/L Alkaline Phosphatase (38-126) U/L Total Protein (6.3-8.2) g/dL Albumin (3.5-5.0) g/dL Assessment and Plan Assessment: 1. Acute kidney injury associated with hypotension and sepsis currently non oliguric. Urine output is not accurately charted. UA is suggestive of underlying UTI. Ultrasound showed evidence of bilateral hydronephrosis, status post Marc catheter placement 2. Gram-negative sepsis with blood cultures growing E. coli and urine culture growing gram-negative bacilli 3. Lactic acidosis secondary to hypotension and sepsis 4. History of hypertension with blood pressure medications currently on hold 5. Coronary artery disease with history of cardiac catheterization previously 6. BPH maintained on Flomax 7. Bilateral hydronephrosis with bilateral nonobstructive calculi noted on ultrasound of the kidneys 8. History of prostate cancer Plan: Continue with IV fluids Continue with midodrine Repeat labs in a.m. Continue with Marc catheter.
[2022-01-05] MEDS: SODIUM CHLORIDE 0.45% 1,000 ML IV SCH ×2 (12:18→21:24)
--- NOTE | 2022-01-05 14:12 | NM ---
EXAMINATION TYPE: NM bone/joint limited DATE OF EXAM: 01/05/2022 COMPARISON: NONE HISTORY: Prostate cancer TECHNIQUE: After the intravenous administration of 20.7 mCi Tc 99m MDP. Images acquired 5 hours pos t injection. The patient could not tolerate complete imaging and therefore the examination is limite d. Images were only obtained of the head and chest as well as portions of the upper extremities. There is intense uptake involving several bilateral ribs. Ribs are only visualized up to #6 bilateral ly. Right-sided ribs affected appear to be 124 and on the left 124 and 5. Right scapular lesions are noted. IMPRESSION: Significantly limited study suggesting bony metastases.
--- NOTE | 2022-01-05 15:05 | P.PN ---
Subjective Progress Note Date: 01/05/22 81-year-old male who was seen in the emergency room for weakness. He was seen there by Dr. Weber. The patient apparently felt weak on his feet, and had a hard time standing up, apparently feeling that she was going to pass out. EMS brought him into the emergency room where he was evaluated. He was thought to possibly have urinary tract infection/urosepsis. The patient is currently in the ER, room #6. CO2 liters of fluid, and is on 2 L of oxygen. He apparently has a history of hypertension, hyperlipidemia, and prostate cancer. He did not take his blood pressure medications today. We are asked to see him for possible admission to the intensive care unit. Currently, his blood pressure is about 90 systolic. Lab data includes a white count 6.7, hemoglobin 9.7, hematocrit 32.4, and platelet count 174,000. PT 14.7 INR 1.4. Sodium 144, potassium 5.6, chlorides 116, CO2 20, BUN 79, creatinine 3.30. Lactic acid was 2.6. Troponin was 0.330. N-terminal proBNP is 17,300. Magnesium 1.5. AST 117, ALT 96. Urine is yellow and cloudy. Blood small positive. Leukocyte esterase was large positive. There was greater than 182 WBCs, and many WBC clumps, and many bacteria. Testing for coronavirus was negative. Chest x-ray was consistent with mild fluid overload. Progress note dated 01/02/2022. 81-year-old male seen in consultation yesterday in the emergency department. He was thought to have urinary tract infection/urosepsis with hypotension. He has a history of hypertension, hyperlipidemia, and prostate cancer. The patient was admitted to the general medical floor. Currently, he is on a couple liters of oxygen. He is receiving Rocephin. Blood pressure is still a little soft. Today he is given midodrine 10 mg 3 times a day, a stat cortisol level, and hydrocortisone, 50 mg IV push every 6 hours. Sodium 142, potassium 5.6, chlorides 116, CO2 20, BUN 88, creatinine 3.52. Troponins were 0.270 and 0.270. Progress note dated 01/03/2022. 81-year-old male seen in consultation, initially in the emergency department. He was thought to have a urinary tract infection/urosepsis. Blood cultures apparently did come back positive for Escherichia coli. His most recent blood pressure is 93/57. He's getting 3 L nasal cannula and saline at 75 mL an hour. No new labs today. Urine is showing gram-negative bacilli, not yet been identified. The blood cultures are showing Escherichia coli. The patient continues on IV Rocephin. He is feeling better everyday. On 01/04/2022, the patient is being seen for a follow-up. As mentioned earlier, this is a case of prostate cancer, obstructive uropathy and secondary UTI and urosepsis. The patient has possible cultures with E. coli and the patient remains on IV Rocephin at a dose of 2 g every 24 hours. The patient for now is hemodynamically stable. The patient is afebrile. Nevertheless, he is quite lethargic and weak. A Marc catheter was inserted today and the patient was found to have purulent urine output. The patient has still an acute kidney injury. Creatinine is on the rise and is currently up to 3.69 with a mean of 90 and his sodium level is at 144. The patient has a potassium level of 5.0. His oral intake is minimal at this point in time. No nausea. No emesis. No chest pain. Occasional congested cough. He is receiving normal saline at rate of 75 mL an hour. Urologist on the case and the patient has not been offered any treatment regarding his prostate cancer because of his comorbidities. He has also a large intra-abdominal aortic aneurysm and based on the ultrasound of the abdomen, the patient has a 6.7 cm abdominal aortic aneurysm along with bilateral hydronephrosis. There was a concern for pulmonary embolism based on elevated d- dimer. The patient was given a VQ scan and there was no ventilation perfusion mismatch and this was called to be of a low probability. 01/05/2022, seeing the patient for a follow-up. The patient is doing poorly. The patient has some vague diffuse abdominal discomfort and pain. He doesn't obstructive uropathy and he was seen by urology and as stated earlier the patient is bilateral chronic hydronephrosis, chronic kidney disease and prostate cancer has not been treated. He has a Marc catheter in place. Urine culture and blood culture was positive for E. coli and the patient remains on IV Rocephin 2 g every 24 hours. The patient is also receiving half-normal saline at 45 mL an hour. He is quite drowsy and sleepy at a time of my evaluation and he is having some vague abdominal pain. No nausea or emesis. Urologist on the case and they believed that the patient has chronic hydronephrosis. CAT scan of the kidneys was done and the patient was found to have mild bilateral high to ureter and hydronephrosis which is similar to the prior examination from 07/23/2020. There was also a nonobstructing 4 mm calculus in the right u reterovesicular junction with an additional 4 mm In the distal right ureter. No obstructing calculus demonstrated in the left ureter. There was also increased size of the descending thoracic aortic and abdominal aneurysms and postsurgical changes involving the infrarenal abdominal aortic aneurysm stent graft. There was also evidence of a sclerotic lesion within the L2 vertebral body with multip le lytic lesions demonstrated consistent with underlying metastatic involvement as the patient is known to have prostate cancer. There is also evidence of cholelithiasis and small bilateral pleural effusions and atelectasis in lung bases. CAT scan of the abdomen also confirmed the findings. There was also evidence of perinephric inflammation and changes concerning for an ascending infection and pyelonephritis and the patient also had circumferential wall thickening of sigmoid colon and descending colon. This was consistent with colitis.A bone scan was done and showed bony metastases and intense uptake in the several bilateral ribs and right scapula. The patient's white cell count is 18.4 with hemoglobin of 11 and platelet count of 149. Sodium level is at 148 and the BUN is at 103 with a creatinine of 3.67. Sodium level is at 148 and a potassium level is at 4.9 and a serum bicarbonate of 19. Objective - Vital Signs Vital signs: Vital Signs Temp 97.3 F L 01/05/22 11:50 Pulse 74 01/05/22 11:50 Resp 20 01/05/22 11:50 BP 104/53 01/05/22 11:50 Pulse Ox 96 01/05/22 11:50 FiO2 Intake & Output 01/04/22 01/05/22 01/05/22 18:59 06:59 18:59 Intake Total 200 120 0 Output Total 456 6 Balance -256 114 0 Intake: Intake, IV Titration 100 Amount cefTRIAXone 2 gm In 100 Sodium Chloride 0.9% 50 ml @ 100 mls/hr IVPB Q24HR [facility] Rx#:[id number] Oral 100 120 0 Output: Urine 450 Stool 6 6 Other: Voiding Method External Catheter External Catheter Indwelling Catheter - Exam No acute distress, oriented 3. No respiratory distress, conversational dyspnea, or use of accessory muscles. 3 L saturation is 96%. HEENT examination is grossly unremarkable. Neck supple. Full range of motion. No adenopathy thyromegaly or neck vein distention. Cardiovascular examination reveals regular rhythm rate. S1-S2 normal. No S3 or S4. No discernible murmur noted. Heart rate 60 bpm. Lungs reveal mostly clear breath sounds. Breath sounds are equal bilaterally. Scattered crackles are noted. Saturations are 96 %. Abdomen soft bowel sounds are heard. There is some mild tenderness about his abdominal wall. No rebound tenderness. No guarding. Bowel sounds are hypoa ctive. Extremities are intact. No cyanosis clubbing or edema. Examination of the skin revealed no evidence of significant rashes, suspicious appearing nevi or other concerning lesions. Neurologic examination is brief but nonfocal. Patient is arousable but overall the patient is quite lethargic and sleepy. - Labs CBC & Chem 7: 01/05/22 08:43 01/05/22 08:43 Labs: Abnormal Lab Results - Last 24 Hours (Table) 01/04/22 01/04/22 01/04/22 Range/Units 20:56 21:11 21:11 WBC 18.9 H (3.8-10.6) k/uL RBC 3.77 L (4.30-5.90) m/uL Hgb 11.6 L (13.0-17.5) gm/dL Hct (39.0-53.0) % MCV 105.5 H (80.0-100.0) fL MCHC 29.1 L (31.0-37.0) g/dL RDW (11.5-15.5) % Plt Count (150-450) k/uL Neutrophils # 17.0 H (1.3-7.7) k/uL Lymphocytes # 0.8 L (1.0-4.8) k/uL Macrocytosis ABG pH 7.31 L (7.35-7.45) ABG pCO2 30 L (35-45) mmHg ABG pO2 136 H (83-108) mmHg ABG HCO3 15 L (21-25) mmol/L ABG Total CO2 16 L (19-24) mmol/L ABG O2 Saturation 99.6 H (94-97) % Sodium 147 H (137-145) mmol/L Chloride 118 H (98-107) mmol/L Carbon Dioxide 18 L (22-30) mmol/L BUN 98 H (9-20) mg/dL Creatinine 3.88 H (0.66-1.25) mg/dL AST 121 H (17-59) U/L ALT 111 H (4-49) U/L Alkaline Phosphatase 132 H (38-126) U/L Total Protein 5.4 L (6.3-8.2) g/dL Albumin 2.7 L (3.5-5.0) g/dL 01/05/22 01/05/22 Range/Units 08:43 08:43 WBC 18.4 H (3.8-10.6) k/uL RBC 3.60 L (4.30-5.90) m/uL Hgb 11.0 L (13.0-17.5) gm/dL Hct 38.6 L (39.0-53.0) % MCV 107.2 H (80.0-100.0) fL MCHC 28.4 L (31.0-37.0) g/dL RDW 15.6 H (11.5-15.5) % Plt Count 149 L (150-450) k/uL Neutrophils # 16.7 H (1.3-7.7) k/uL Lymphocytes # 0.6 L (1.0-4.8) k/uL Macrocytosis Marked A ABG pH (7.35-7.45) ABG pCO2 (35-45) mmHg ABG pO2 (83-108) mmHg ABG HCO3 (21-25) mmol/L ABG Total CO2 (19-24) mmol/L ABG O2 Saturation (94-97) % Sodium 148 H (137-145) mmol/L Chloride 118 H (98-107) mmol/L Carbon Dioxide 19 L (22-30) mmol/L BUN 103 H* (9-20) mg/dL Creatinine 3.67 H (0.66-1.25) mg/dL AST (17-59) U/L ALT (4-49) U/L Alkaline Phosphatase (38-126) U/L Total Protein (6.3-8.2) g/dL Albumin (3.5-5.0) g/dL Assessment and Plan Plan: Urinary tract infection/urosepsis, secondary to Escherichia coli. Before the catheter was inserted today and the urine output is purulence for now. The patient remains on IV Rocephin. Patient is currently receiving IV fluids. Patient is on IV Rocephin. Continues to have leukocytosis with a white cell count remains elevated at 18.4. CAT scan of the abdomen showed possible pyelonephritis and the patient was found to have nonobstructing 4 mm calculus in the right UV junction and another 4 mm distal right ureter. Prostate cancer with evidence of skeletal metastases, please refer to the CAT scan of the abdomen and more scan Chronic hydronephrosis with evidence of nephrolithiasis as discussed above Chronic kidney disease Acute leukocytosis Mild lactic acidemia secondary to urinary tract infection/sepsis. Prostate cancer, diagnosed May 2020. The patient was offered surgery at surgery was not done because of his comorbidities. His PSAs elevated the ne urologist on the case. History of hypertension. History of hyperlipidemia. History of skin cancer. History of CAD with previous heart catheterization/stent. Prior history of tobacco use. AAA aortic aneurysm , large measuring 6.7 cm in size. Most recent CAT scan of the abdomen showed a 7.1 cm aneurysm and aneurysm seems to have increased in size Cholelithiasis with abnormal LFTs Questionable sigmoid colon and descending colon colitis Hyperchloremic hypernatremia Vital pleural effusions Plan: Keep the Marc catheter in place Continue half-normal saline at the rate of 125 mL an hour Monitor renal function Urologist on the case and the patient is known to have prostate cancer Overall respiratory status is stable and the patient is currently on oxygen at 4 L a Elevation of the d-dimer is related to underlying infection/sepsis Poor prognosis with poor performance and functional status. Urology and nephrology are both on the case Establish CODE STATUS Pulmonary critical care service will sign off and see the patient on an as- needed basis. No active pulmonary issues this point in time
--- NOTE | 2022-01-05 16:53 | P.CONS ---
History of Present Illness - Reason for Consult Consult date: 01/05/22 prostate cancer Requesting physician: Kvng Bartholomew - Chief Complaint weakness - History of Present Illness is currently medicated for pain from kidney stones, he is not able to provide any history. Son at bedside confirms pt has a diagnosis of prostate cancer, thinks diagnosed , he opted to forgo treatment at that time. Urology note reviewed. Prostate adenocarcinoma diagnosed 06/19, Duran score 8, no mets as that time. Treatment options discussed but pt did not want to pursue. PSA screen 04/19 42.5. Past Medical History Past Medical History: Cancer, Hyperlipidemia, Hypertension Additional Past Medical History / Comment(s): HX SKIN CANCER, DIFFICULTY URINATING AT NIGHT., AAA. History of Any Multi-Drug Resistant Organisms: None Reported Past Surgical History: Heart Catheterization With Stent, Orthopedic Surgery Additional Past Surgical History / Comment(s): PARTIAL RIGHT KNEE, HEART CATH (APPROX 20 YRS AGO) Past Anesthesia/Blood Transfusion Reactions: No Reported Reaction Date of Last Stent Placement:: ?1997 Past Psychological History: No Psychological Hx Reported Smoking Status: Former smoker Past Alcohol Use History: Rare Past Drug Use History: None Reported - Past Family History Father Family Medical History: Cancer Additional Family Medical History / Comment(s): SKIN CA Brother(s) Family Medical History: Cancer Additional Family Medical History / Comment(s): SKIN CANCER Medications and Allergies Home Medications Medication Instructions Recorded Confirmed Type Atorvastatin [Lipitor] 80 mg PO DAILY 09/08/17 01/01/22 History Tamsulosin HCl [Flomax] 0.4 mg PO BID 09/08/17 01/01/22 History atenoloL 25 mg PO DAILY 09/08/17 01/01/22 History lisinopriL [Zestril] 20 mg PO DAILY 09/08/17 01/01/22 History Aspirin EC [Ecotrin Low Dose] 81 mg PO DAILY 01/01/22 01/01/22 History Cyclobenzaprine [Flexeril] 10 mg PO HS PRN 01/01/22 01/01/22 History Dutasteride 0.5 mg PO DAILY 01/01/22 01/01/22 History HYDROcodone/APAP 5-325MG [[place] 1 tab PO TID PRN 01/01/22 01/01/22 History 5-325] Allergies Allergy/AdvReac Type Severity Reaction Status Date / Time No Known Allergies Allergy Verified 01/01/22 11:11 Physical Exam Vitals: Vital Signs Temp Pulse Pulse Resp BP Pulse Ox 01/05/22 11:50 97.3 F L 74 20 104/53 96 01/05/22 08:50 97.3 F L 72 20 106/58 93 L 01/05/22 04:00 98.3 F 72 18 115/74 90 L 01/05/22 02:00 74 18 01/05/22 00:00 98.7 F 74 18 111/54 90 L 01/04/22 21:01 80 01/04/22 20:00 97.3 F L 73 16 92/61 90 L Intake and Output 01/05/22 01/05/22 01/05/22 06:59 14:59 22:59 Intake Total 120 0 550 Output Total 3 Balance 117 0 550 Intake: Intake, IV Titration 550 Amount Sodium Chloride 0.45% 1, 500 000 ml @ 125 mls/hr IV . Q8H [facility] Rx#:[id number] cefTRIAXone 2 gm In 50 Sodium Chloride 0.9% 50 ml @ 100 mls/hr IVPB Q24HR [facility] Rx#:[id number] Oral 120 0 Output: Stool 3 Other: Voiding Method External Catheter Indwelling Catheter Results CBC & Chem 7: 01/05/22 08:43 01/05/22 08:43 Labs: Abnormal Lab Results - Last 24 Hours (Table) 01/04/22 01/04/22 01/04/22 Range/Units 20:56 21:11 21:11 WBC 18.9 H (3.8-10.6) k/uL RBC 3.77 L (4.30-5.90) m/uL Hgb 11.6 L (13.0-17.5) gm/dL Hct (39.0-53.0) % MCV 105.5 H (80.0-100.0) fL MCHC 29.1 L (31.0-37.0) g/dL RDW (11.5-15.5) % Plt Count (150-450) k/uL Neutrophils # 17.0 H (1.3-7.7) k/uL Lymphocytes # 0.8 L (1.0-4.8) k/uL Macrocytosis ABG pH 7.31 L (7.35-7.45) ABG pCO2 30 L (35-45) mmHg ABG pO2 136 H (83-108) mmHg ABG HCO3 15 L (21-25) mmol/L ABG Total CO2 16 L (19-24) mmol/L ABG O2 Saturation 99.6 H (94-97) % Sodium 147 H (137-145) mmol/L Chloride 118 H (98-107) mmol/L Carbon Dioxide 18 L (22-30) mmol/L BUN 98 H (9-20) mg/dL Creatinine 3.88 H (0.66-1.25) mg/dL AST 121 H (17-59) U/L ALT 111 H (4-49) U/L Alkaline Phosphatase 132 H (38-126) U/L Total Protein 5.4 L (6.3-8.2) g/dL Albumin 2.7 L (3.5-5.0) g/dL Procalcitonin (0.02-0.09) ng/mL 01/05/22 01/05/22 01/05/22 Range/Units 08:43 08:43 08:43 WBC 18.4 H (3.8-10.6) k/uL RBC 3.60 L (4.30-5.90) m/uL Hgb 11.0 L (13.0-17.5) gm/dL Hct 38.6 L (39.0-53.0) % MCV 107.2 H (80.0-100.0) fL MCHC 28.4 L (31.0-37.0) g/dL RDW 15.6 H (11.5-15.5) % Plt Count 149 L (150-450) k/uL Neutrophils # 16.7 H (1.3-7.7) k/uL Lymphocytes # 0.6 L (1.0-4.8) k/uL Macrocytosis Marked A ABG pH (7.35-7.45) ABG pCO2 (35-45) mmHg ABG pO2 (83-108) mmHg ABG HCO3 (21-25) mmol/L ABG Total CO2 (19-24) mmol/L ABG O2 Saturation (94-97) % Sodium 148 H (137-145) mmol/L Chloride 118 H (98-107) mmol/L Carbon Dioxide 19 L (22-30) mmol/L BUN 103 H* (9-20) mg/dL Creatinine 3.67 H (0.66-1.25) mg/dL AST (17-59) U/L ALT (4-49) U/L Alkaline Phosphatase (38-126) U/L Total Protein (6.3-8.2) g/dL Albumin (3.5-5.0) g/dL Procalcitonin 16.40 H (0.02-0.09) ng/mL Comments: VQ report-low/intermediate probability for PE Abd/bladder US-caliculi NM bone/joint scan-significantly limited study, suggests metastatic disease Chest x-ray: report reviewed (rt pl eff, lt airspace disease) CT scan - abdomen: report reviewed CT scan - pelvis: report reviewed (thickening in the decending and sigmoid colon ) Assessment and Plan (1) Prostate cancer metastatic to bone Current Visit: Yes Status: Acute Priority: High Code(s): C61 - MALIGNANT NEOPLASM OF PROSTATE; C79.51 - SECONDARY MALIGNANT NEOPLASM OF BONE SNOMED Code(s): 526540344 Plan: On review of chart and imaging clinically pt most likely has metastatic prostate cancer. Pt was not able to say much-confusion, medications-but son relayed to me that pt was diagnosed several years ago with prostate cancer and did not want to pursue any treatment at that time. Pending PSA Currently pt is heavily medicated for painful nephrolithiasis, pending treatment of the same with Nephrology. Will wait post procedure, when pt feeling better, less groggy to discuss prostate cancer, current concerns, options for treatment and prognosis so pt can make and informed decision. Son agreed with plan of care. Will f/u
--- NOTE | 2022-01-05 18:03 | P.PN ---
Subjective Progress Note Date: 01/05/22 This is a 49 year old male who is admitted for generalized weakness and UTI with sepsis and found to have E. Coli UTI and also E. Coli bacteremia. Patient also had troponin elevation on admission. Patient was diagnosed with prostate cancer in 2020 and decided against treatment at that time. There is concern for metastatic disease with evidence for new sclerotic and lytic bone lesions at the level of L2. Patient dose have an enlarging right pleural effusion on chest xray. He had follow up abdominal pelvis CT yesterday which shows mild bilateral hydronephrosis with evidence for obstructive 4 mm stone at the ureterovesical junction and urology is planning on stent placement tomorrow. There is also fin dings of circumferential wall thickening of the sigmoid colon and descending colon with concern for colitis and perinephric inflammatory changes correlating for ascending infection/pyelonephritis. Patient continues with indwelling catheter. Sodium is elevated today at 148 he was continued on normal saline which was discontinued. He has been started on 0.45 normal saline and will repeat sodium level tomorrow. Kidney function essentially stable today, BUN 103, creatinine 3.67. Liver enzymes remain elevated. Procalcitonin has improved down to 16.40. White count 18.4, hgb 11.0, platelet count 149. Patient attempted to undergo bone scan today and was unable to complete entire exam. He is having g eneralized pain and is current receiving IV push morphine. He has remained afebrile, heart rate 76 normal sinus rhythm, blood pressure 107/65, he remains on 6L hi-flow cannula. PSA is currently pending at this time. Patient is being follow by multiple consultations including nephrology, urology, oncology, cardiology, pulmonary services. Repeat blood cultures are taken today, infectious disease will be consulted. Patient remains on IV ceftriaxone. Review of Systems Difficult to obtain full review of systems, patient is lethargic and does deny pain at the time of my examination PHYSICAL EXAMINATION: GENERAL: The patient is alert and oriented x1, lethargic HEENT: Pupils are round and equally reacting to light. EOMI. No scleral icterus. No conjunctival pallor. Normocephalic, atraumatic. No pharyngeal erythema. No thyromegaly. CARDIOVASCULAR: S1 and S2 present. No murmurs, rubs, or gallops. PULMONARY: Chest is clear to auscultation, no wheezing or crackles. ABDOMEN: Soft, nontender, nondistended, normoactive bowel sounds. No palpable organomegaly. MUSCULOSKELETAL: No joint swelling or deformity. EXTREMITIES: No cyanosis, clubbing, or pedal edema. NEUROLOGICAL: Gross neurological examination did not reveal any focal deficits. Diffuse generalized weakness SKIN: No rashes. Assessment and plan Assessment Urinary tract infection with sepsis possible pyelonephritis with E.Coli and also E. Coli bacteremia patient currently on IV ceftriaxone and repeat blood cultures were taken today Sepsis with lactic acidosis, leukocytosis Obstructive uropathy with evidence for obstructive renal stone plans for stent placement tomorrow with urology Acute renal injury secondary to above Troponin leak from sepsis acute coronary syndrome ruled out Hypernatremia patient is receiving half normal saline expected to improve Non anion gap metabolic acidosis History prostate cancer with evidence for new bone metastasis found on imaging Elevated Transaminases with cholelisthiasis no evidence for acute cholecystitis on imaging Chronic kidney disease History AAA with imaging showing 7.1 cm aneurysm that has increased in size from previous Coronary artery disease post PCI Hyperlipidemia History hypertension currently hypotensive GI Prophylaxis DVT Prophylaxis Plan Bone scan today, Repeat PSA level pending Pending ureteral stent placement tomorrow Continue fluids with 0.45 normal saline Repeat labs tomorrow Continue with IV ceftriaxone will consult infectious disease for E.Coli bacteremia and repeat blood cultures were taken today Pulmonary following as needed Continues on midodrine Multiple consultations following including oncology, nephrology, urology Pulmonary and Cardiology have signed off The impression and plan of care has been dictated by Katie Srivastava Nurse Practitioner as directed. Dr. Sinan MD I have performed a history and physical examination and medical decision making of this patient, discussed the same with the dictator, and agree with the dictators assessment and plan as written, documented as a scribe. Based on total visit time, I have performed more than 50% of this visit. Objective - Vital Signs Vital signs: Vital Signs Temp 97.4 F L 01/05/22 16:48 Pulse 76 01/05/22 16:48 Resp 20 01/05/22 16:48 BP 107/65 01/05/22 16:48 Pulse Ox 96 01/05/22 16:48 FiO2 Intake & Output 01/04/22 01/05/22 01/05/22 18:59 06:59 18:59 Intake Total 200 120 550 Output Total 456 6 225 Balance -256 114 325 Intake: Intake, IV Titration 100 550 Amount Sodium Chloride 0.45% 1, 500 000 ml @ 125 mls/hr IV . Q8H [facility] Rx#:[id number] cefTRIAXone 2 gm In 100 50 Sodium Chloride 0.9% 50 ml @ 100 mls/hr IVPB Q24HR [facility] Rx#:[id number] Oral 100 120 0 Output: Urine 450 225 Stool 6 6 Other: Voiding Method External Catheter External Catheter Indwelling Catheter - Labs CBC & Chem 7: 01/05/22 08:43 01/05/22 08:43 Labs: Abnormal Lab Results - Last 24 Hours (Table) 01/04/22 01/04/22 01/04/22 Range/Units 20:56 21:11 21:11 WBC 18.9 H (3.8-10.6) k/uL RBC 3.77 L (4.30-5.90) m/uL Hgb 11.6 L (13.0-17.5) gm/dL Hct (39.0-53.0) % MCV 105.5 H (80.0-100.0) fL MCHC 29.1 L (31.0-37.0) g/dL RDW (11.5-15.5) % Plt Count (150-450) k/uL Neutrophils # 17.0 H (1.3-7.7) k/uL Lymphocytes # 0.8 L (1.0-4.8) k/uL Macrocytosis ABG pH 7.31 L (7.35-7.45) ABG pCO2 30 L (35-45) mmHg ABG pO2 136 H (83-108) mmHg ABG HCO3 15 L (21-25) mmol/L ABG Total CO2 16 L (19-24) mmol/L ABG O2 Saturation 99.6 H (94-97) % Sodium 147 H (137-145) mmol/L Chloride 118 H (98-107) mmol/L Carbon Dioxide 18 L (22-30) mmol/L BUN 98 H (9-20) mg/dL Creatinine 3.88 H (0.66-1.25) mg/dL AST 121 H (17-59) U/L ALT 111 H (4-49) U/L Alkaline Phosphatase 132 H (38-126) U/L Total Protein 5.4 L (6.3-8.2) g/dL Albumin 2.7 L (3.5-5.0) g/dL Procalcitonin (0.02-0.09) ng/mL 01/05/22 01/05/22 01/05/22 Range/Units 08:43 08:43 08:43 WBC 18.4 H (3.8-10.6) k/uL RBC 3.60 L (4.30-5.90) m/uL Hgb 11.0 L (13.0-17.5) gm/dL Hct 38.6 L (39.0-53.0) % MCV 107.2 H (80.0-100.0) fL MCHC 28.4 L (31.0-37.0) g/dL RDW 15.6 H (11.5-15.5) % Plt Count 149 L (150-450) k/uL Neutrophils # 16.7 H (1.3-7.7) k/uL Lymphocytes # 0.6 L (1.0-4.8) k/uL Macrocytosis Marked A ABG pH (7.35-7.45) ABG pCO2 (35-45) mmHg ABG pO2 (83-108) mmHg ABG HCO3 (21-25) mmol/L ABG Total CO2 (19-24) mmol/L ABG O2 Saturation (94-97) % Sodium 148 H (137-145) mmol/L Chloride 118 H (98-107) mmol/L Carbon Dioxide 19 L (22-30) mmol/L BUN 103 H* (9-20) mg/dL Creatinine 3.67 H (0.66-1.25) mg/dL AST (17-59) U/L ALT (4-49) U/L Alkaline Phosphatase (38-126) U/L Total Protein (6.3-8.2) g/dL Albumin (3.5-5.0) g/dL Procalcitonin 16.40 H (0.02-0.09) ng/mL Assessment and Plan Time with Patient: Greater than 30
[2022-01-05] MEDS ORDERED: IPRATROPIUM-ALBUTEROL 3 ML NEB INHALATION SCH (20:30)
[2022-01-05] MEDS ORDERED: FAMOTIDINE 20 MG/2 ML VIAL IV SCH ×2 (21:00)
--- NOTE | 2022-01-05 22:07 | P.PN ---
Subjective Progress Note Date: 01/05/22 CT yesterday, showed evidence of right 4 mm distal stone with mild bilateral hydronephrosis. having abdominal pain this morning, creatinine worsened to 3.8. Marc draining blood-tinged urine. Discussed with the patient given worsening renal function, and his UTI recommend proceeding with stent insertion. Discussed also CT showed multiple lesions in the spine concerning for metastatic disease from prostate cancer PSA still pending. -Keep nothing by mouth past midnight -OR for cystoscopy, bilateral retrograde pyelogram, right stent insertion -Medical oncology consult for metastatic prostate cancer, -F/U on Bone scan Objective - Vital Signs Vital signs: Vital Signs Temp 97.3 F L 01/05/22 11:50 Pulse 74 01/05/22 11:50 Resp 20 01/05/22 11:50 BP 104/53 01/05/22 11:50 Pulse Ox 96 01/05/22 11:50 FiO2 Intake & Output 01/04/22 01/05/22 01/05/22 18:59 06:59 18:59 Intake Total 200 120 0 Output Total 456 6 Balance -256 114 0 Intake: Intake, IV Titration 100 Amount cefTRIAXone 2 gm In 100 Sodium Chloride 0.9% 50 ml @ 100 mls/hr IVPB Q24HR [facility] Rx#:[id number] Oral 100 120 0 Output: Urine 450 Stool 6 6 Other: Voiding Method External Catheter External Catheter Indwelling Catheter - Labs CBC & Chem 7: 01/05/22 08:43 01/05/22 08:43 Labs: Abnormal Lab Results - Last 24 Hours (Table) 01/04/22 01/04/22 01/04/22 Range/Units 20:56 21:11 21:11 WBC 18.9 H (3.8-10.6) k/uL RBC 3.77 L (4.30-5.90) m/uL Hgb 11.6 L (13.0-17.5) gm/dL Hct (39.0-53.0) % MCV 105.5 H (80.0-100.0) fL MCHC 29.1 L (31.0-37.0) g/dL RDW (11.5-15.5) % Plt Count (150-450) k/uL Neutrophils # 17.0 H (1.3-7.7) k/uL Lymphocytes # 0.8 L (1.0-4.8) k/uL Macrocytosis ABG pH 7.31 L (7.35-7.45) ABG pCO2 30 L (35-45) mmHg ABG pO2 136 H (83-108) mmHg ABG HCO3 15 L (21-25) mmol/L ABG Total CO2 16 L (19-24) mmol/L ABG O2 Saturation 99.6 H (94-97) % Sodium 147 H (137-145) mmol/L Chloride 118 H (98-107) mmol/L Carbon Dioxide 18 L (22-30) mmol/L BUN 98 H (9-20) mg/dL Creatinine 3.88 H (0.66-1.25) mg/dL AST 121 H (17-59) U/L ALT 111 H (4-49) U/L Alkaline Phosphatase 132 H (38-126) U/L Total Protein 5.4 L (6.3-8.2) g/dL Albumin 2.7 L (3.5-5.0) g/dL 01/05/22 01/05/22 Range/Units 08:43 08:43 WBC 18.4 H (3.8-10.6) k/uL RBC 3.60 L (4.30-5.90) m/uL Hgb 11.0 L (13.0-17.5) gm/dL Hct 38.6 L (39.0-53.0) % MCV 107.2 H (80.0-100.0) fL MCHC 28.4 L (31.0-37.0) g/dL RDW 15.6 H (11.5-15.5) % Plt Count 149 L (150-450) k/uL Neutrophils # 16.7 H (1.3-7.7) k/uL Lymphocytes # 0.6 L (1.0-4.8) k/uL Macrocytosis Marked A ABG pH (7.35-7.45) ABG pCO2 (35-45) mmHg ABG pO2 (83-108) mmHg ABG HCO3 (21-25) mmol/L ABG Total CO2 (19-24) mmol/L ABG O2 Saturation (94-97) % Sodium 148 H (137-145) mmol/L Chloride 118 H (98-107) mmol/L Carbon Dioxide 19 L (22-30) mmol/L BUN 103 H* (9-20) mg/dL Creatinine 3.67 H (0.66-1.25) mg/dL AST (17-59) U/L ALT (4-49) U/L Alkaline Phosphatase (38-126) U/L Total Protein (6.3-8.2) g/dL Albumin (3.5-5.0) g/dL
[2022-01-06] MEDS: MIDODRINE 5 MG TAB PO SCH ×2 (06:12→13:57)
[2022-01-06] MEDS: SODIUM CHLORIDE 0.45% 1,000 ML IV SCH (06:13)
[2022-01-06 09:19] LABS: HCT 32.2 % (39.0-53.0); HGB 9.6 gm/dL (13.0-17.5); Hypochromasia Marked; MCH 31.1 pg (25.0-35.0); MCV 103.8 fL (80.0-100.0); Macrocytosis Moderate; Mean Platelet Volume 10.1; Platelet Count 127 k/uL (150-450); RDW 15.3 % (11.5-15.5)
[2022-01-06 09:32] LABS: Albumin 2.3 g/dL (3.5-5.0); Calcium 8.1 mg/dL (8.4-10.2); Magnesium 1.8 mg/dL (1.6-2.3); Potassium 4.8 mmol/L (3.5-5.1); Total Bilirubin 0.2 mg/dL (0.2-1.3); Total Protein 4.6 g/dL (6.3-8.2)
[2022-01-06] MEDS ORDERED: DEXTROSE 5% IN WATER 1,000 ML with SODIUM BICARB (1 MEQ/ML) 150 ML IV SCH ×2 (10:00→15:30)
[2022-01-06] MEDS ORDERED: DEXTROSE 50% SYRINGE 50 ML IVP STA (10:27)
[2022-01-06 10:38] LABS: Glucose,Whole Blood 45 mg/dL (70-110)
[2022-01-06] MEDS: ATORVASTATIN 80 MG TAB PO SCH ×2 (10:40→13:01)
[2022-01-06] MEDS: FINASTERIDE 5 MG TAB PO SCH (10:40)
[2022-01-06] MEDS: ASPIRIN 81 MG PO SCH (10:40)
[2022-01-06] MEDS ORDERED: GLUCAGON 1 MG/ML VIAL ONE (10:41)
[2022-01-06 10:53] LABS: Glucose,Whole Blood 125 mg/dL (70-110)
[2022-01-06 11:05] LABS: Glucose,Whole Blood 132 mg/dL (70-110)
[2022-01-06 11:48] LABS: Glucose,Whole Blood 106 mg/dL (70-110)
--- NOTE | 2022-01-06 11:53 | P.PN ---
Subjective Patient is seen for follow-up for acute kidney injury. He was admitted to the hospital with increased weakness and noted to have E. coli bacteremia and urinary tract infection. Patient has been hypotensive and maintained on IV fluids as well as midodrine. Urine output has been low. Ultrasound showed evidence of bilateral hydronephrosis. A Marc catheter has been placed and patient was evaluated by urology as well. Serum creatinine had increased to 4.1 today. Patient's son is present at bedside. Patient is lethargic, confused. Bone scan shows evidence of bony metastasis. Objective - Vital Signs Vital signs: Vital Signs Temp 97.4 F L 01/06/22 03:41 Pulse 85 01/06/22 03:41 Resp 20 01/06/22 03:41 BP 107/53 01/06/22 03:41 Pulse Ox 93 L 01/06/22 08:02 FiO2 Intake & Output 01/05/22 01/06/22 01/06/22 18:59 06:59 18:59 Intake Total 550 875 Output Total 225 140 50 Balance 325 735 -50 Intake: Intake, IV Titration 550 875 Amount Sodium Chloride 0.45% 1, 500 875 000 ml @ 125 mls/hr IV . Q8H [facility] Rx#:[id number] cefTRIAXone 2 gm In 50 Sodium Chloride 0.9% 50 ml @ 100 mls/hr IVPB Q24HR [facility] Rx#:[id number] Oral 0 Output: Urine 225 140 50 Straight 140 Other: Voiding Method Indwelling Catheter Indwelling Catheter - Exam Patient is awake, comfortable, not in any acute distress, lethargic, confused today Examination of the heart S1 and S2 Examination lungs decreased breath sounds at the bases Abdomen is soft nontender Examination of the lower extremity shows no evidence of edema HAND TUBE BENDER exam grossly intact patient is moving all 4 extremities. - Labs CBC & Chem 7: 01/06/22 08:32 01/06/22 08:32 Labs: Abnormal Lab Results - Last 24 Hours (Table) 01/05/22 01/06/22 01/06/22 Range/Units 08:43 08:32 08:32 WBC 16.0 H (3.8-10.6) k/uL RBC 3.10 L (4.30-5.90) m/uL Hgb 9.6 L (13.0-17.5) gm/dL Hct 32.2 L (39.0-53.0) % MCV 103.8 H (80.0-100.0) fL MCHC 30.0 L (31.0-37.0) g/dL Plt Count 127 L (150-450) k/uL Chloride 117 H (98-107) mmol/L Carbon Dioxide 14 L (22-30) mmol/L BUN 105 H* (9-20) mg/dL Creatinine 4.12 H (0.66-1.25) mg/dL Glucose 47 L* (74-99) mg/dL POC Glucose (mg/dL) (70-110) mg/dL Calcium 8.1 L (8.4-10.2) mg/dL AST 129 H (17-59) U/L ALT 97 H (4-49) U/L Total Protein 4.6 L (6.3-8.2) g/dL Albumin 2.3 L (3.5-5.0) g/dL Procalcitonin 16.40 H (0.02-0.09) ng/mL 01/06/22 01/06/22 01/06/22 Range/Units 10:37 10:50 11:03 WBC (3.8-10.6) k/uL RBC (4.30-5.90) m/uL Hgb (13.0-17.5) gm/dL Hct (39.0-53.0) % MCV (80.0-100.0) fL MCHC (31.0-37.0) g/dL Plt Count (150-450) k/uL Chloride (98-107) mmol/L Carbon Dioxide (22-30) mmol/L BUN (9-20) mg/dL Creatinine (0.66-1.25) mg/dL Glucose (74-99) mg/dL POC Glucose (mg/dL) 45 L 125 H 132 H (70-110) mg/dL Calcium (8.4-10.2) mg/dL AST (17-59) U/L ALT (4-49) U/L Total Protein (6.3-8.2) g/dL Albumin (3.5-5.0) g/dL Procalcitonin (0.02-0.09) ng/mL Assessment and Plan Assessment: 1. Acute kidney injury associated with hypotension and sepsis currently. UA is suggestive of underlying UTI. Ultrasound showed evidence of bilateral hydronephrosis, status post Marc catheter placement 2. Gram-negative sepsis with blood cultures growing E. coli and urine culture growing gram-negative bacilli 3. Lactic acidosis secondary to hypotension and sepsis 4. History of hypertension with blood pressure medications currently on hold 5. Coronary artery disease with history of cardiac catheterization previously 6. BPH maintained on Flomax 7. Bilateral hydronephrosis with bilateral nonobstructive calculi noted on ultrasound of the kidneys 8. History of prostate cancer. Bone scan showed bony metastasis 9. Metabolic acidosis secondary to acute kidney injury Plan: Switch IV fluids to IV bicarb Patient is not a candidate for renal replacement therapy given his underlying metastatic cancer.
--- NOTE | 2022-01-06 12:44 | P.PN ---
Subjective Still having abdominal pain, creatinine is 4.1 now. Marc draining clear yellow urine Discussed with the patient given worsening renal function, and his UTI recommend proceeding with stent insertion. -Keep nothing by mouth today -Keep Marc in place -OR for cystoscopy, bilateral retrograde pyelogram, right stent insertion -F/U on medical oncology recs for metastatic prostate cancer, Objective - Vital Signs Vital signs: Vital Signs Temp 97.4 F L 01/06/22 03:41 Pulse 85 01/06/22 03:41 Resp 20 01/06/22 03:41 BP 107/53 01/06/22 03:41 Pulse Ox 93 L 01/06/22 08:02 FiO2 Intake & Output 01/05/22 01/06/22 01/06/22 18:59 06:59 18:59 Intake Total 550 875 Output Total 225 140 50 Balance 325 735 -50 Intake: Intake, IV Titration 550 875 Amount Sodium Chloride 0.45% 1, 500 875 000 ml @ 125 mls/hr IV . Q8H [facility] Rx#:[id number] cefTRIAXone 2 gm In 50 Sodium Chloride 0.9% 50 ml @ 100 mls/hr IVPB Q24HR [facility] Rx#:[id number] Oral 0 Output: Urine 225 140 50 Straight 140 Other: Voiding Method Indwelling Catheter Indwelling Catheter - Labs CBC & Chem 7: 01/06/22 08:32 01/06/22 08:32 Labs: Abnormal Lab Results - Last 24 Hours (Table) 01/05/22 01/06/22 01/06/22 Range/Units 08:43 08:32 08:32 WBC 16.0 H (3.8-10.6) k/uL RBC 3.10 L (4.30-5.90) m/uL Hgb 9.6 L (13.0-17.5) gm/dL Hct 32.2 L (39.0-53.0) % MCV 103.8 H (80.0-100.0) fL MCHC 30.0 L (31.0-37.0) g/dL Plt Count 127 L (150-450) k/uL Chloride 117 H (98-107) mmol/L Carbon Dioxide 14 L (22-30) mmol/L BUN 105 H* (9-20) mg/dL Creatinine 4.12 H (0.66-1.25) mg/dL Glucose 47 L* (74-99) mg/dL POC Glucose (mg/dL) (70-110) mg/dL Calcium 8.1 L (8.4-10.2) mg/dL AST 129 H (17-59) U/L ALT 97 H (4-49) U/L Total Protein 4.6 L (6.3-8.2) g/dL Albumin 2.3 L (3.5-5.0) g/dL Procalcitonin 16.40 H (0.02-0.09) ng/mL 01/06/22 01/06/22 01/06/22 Range/Units 10:37 10:50 11:03 WBC (3.8-10.6) k/uL RBC (4.30-5.90) m/uL Hgb (13.0-17.5) gm/dL Hct (39.0-53.0) % MCV (80.0-100.0) fL MCHC (31.0-37.0) g/dL Plt Count (150-450) k/uL Chloride (98-107) mmol/L Carbon Dioxide (22-30) mmol/L BUN (9-20) mg/dL Creatinine (0.66-1.25) mg/dL Glucose (74-99) mg/dL POC Glucose (mg/dL) 45 L 125 H 132 H (70-110) mg/dL Calcium (8.4-10.2) mg/dL AST (17-59) U/L ALT (4-49) U/L Total Protein (6.3-8.2) g/dL Albumin (3.5-5.0) g/dL Procalcitonin (0.02-0.09) ng/mL
[2022-01-06] MEDS ORDERED: LACTATED RINGERS 1,000 ML IV SCH (12:53)
[2022-01-06] MEDS ORDERED: ONDANSETRON 4 MG/2 ML VIAL ONE (12:59)
[2022-01-06] MEDS ORDERED: SODIUM CHLORIDE 0.9% 1,000 ML IV ONE ×2 (13:05→15:45)
[2022-01-06] MEDS ORDERED: PROPOFOL 10 MG/ML 20 ML VIAL IV ONE (13:20)
[2022-01-06] MEDS ORDERED: SUCCINYLCHOLINE CHLORIDE 200 MG/10 ML VIAL IV ONE (13:20)
[2022-01-06] MEDS ORDERED: SUGAMMADEX SODIUM 200 MG/2 ML SDV IV ONE (13:20)
[2022-01-06] MEDS ORDERED: LIDOCAINE 2% INJ 20 MG/ML (2 ML VIAL) ONE (13:20)
[2022-01-06] MEDS ORDERED: fentaNYL (PF) 50 MCG/ML 2 ML AMP ONE (13:20)
[2022-01-06] MEDS ORDERED: PHENYLEPHRINE-0.9% NACL SYG 1,000 MCG/10 ML SYRINGE ONE (13:20)
[2022-01-06] MEDS ORDERED: ePHEDrine 50 MG/ML 1 ML VIAL ONE (13:20)
[2022-01-06] MEDS ORDERED: ALBUTEROL HFA INHALER INHALATION ONE (13:20)
[2022-01-06] MEDS ORDERED: ROCURONIUM 10 MG/ML (5 ML VIAL) IV ONE (13:20)
[2022-01-06] MEDS ORDERED: ONDANSETRON 4 MG/2 ML VIAL IVP ONE (13:23)
[2022-01-06] MEDS ORDERED: SODIUM CHLORIDE 0.9% 500 ML 500 ML IV ONE ×2 (13:25→14:47)
[2022-01-06] MEDS ORDERED: IOPAMIDOL-370 50ML BTL IRRIGATION ONE (13:51)
[2022-01-06] MEDS ORDERED: HYDROmorphone 0.5 MG/0.5 ML SYRINGE IVP PRN (14:35)
[2022-01-06] MEDS ORDERED: HYDROmorphone 1 MG/ML 1 ML SYRINGE IVP PRN (14:35)
--- NOTE | 2022-01-06 14:49 | FL ---
Fluoroscopy INDICATION: Stent placement FINDINGS: Fluoroscopy time: 31 seconds. Images obtained: 4. IMPRESSIONS: 1. Documentation of fluoroscopy.
--- NOTE | 2022-01-06 14:49 | P.PN ---
Subjective Progress Note Date: 01/06/22 This is a 49 year old male who is admitted for generalized weakness and UTI with sepsis and found to have E. Coli UTI and also E. Coli bacteremia. Patient also had troponin elevation on admission. Patient was diagnosed with prostate cancer in 2020 and decided against treatment at that time. There is concern for metastatic disease with evidence for new sclerotic and lytic bone lesions at the level of L2. Patient dose have an enlarging right pleural effusion on chest xray. He had follow up abdominal pelvis CT yesterday which shows mild bilateral hydronephrosis with evidence for obstructive 4 mm stone at the ureterovesical junction and urology is planning on stent placement tomorrow. There is also fin dings of circumferential wall thickening of the sigmoid colon and descending colon with concern for colitis and perinephric inflammatory changes correlating for ascending infection/pyelonephritis. Patient continues with indwelling catheter. Sodium is elevated today at 148 he was continued on normal saline which was discontinued. He has been started on 0.45 normal saline and will repeat sodium level tomorrow. Kidney function essentially stable today, BUN 103, creatinine 3.67. Liver enzymes remain elevated. Procalcitonin has improved down to 16.40. White count 18.4, hgb 11.0, platelet count 149. Patient attempted to undergo bone scan today and was unable to complete entire exam. He is having g eneralized pain and is current receiving IV push morphine. He has remained afebrile, heart rate 76 normal sinus rhythm, blood pressure 107/65, he remains on 6L hi-flow cannula. PSA is currently pending at this time. Patient is being follow by multiple consultations including nephrology, urology, oncology, cardiology, pulmonary services. Repeat blood cultures are taken today, infectious disease will be consulted. Patient remains on IV ceftriaxone. 01/06/2022 Patient evaluated today on stepdown unit, family present at bedside. Patient did have hypoglycemia level 47 with lab draw this morning which was confirmed by CBG of 43 at bedside. He received an amp of dextrose, and blood glucose has improved into the 100s. Will monitor blood glucose closely today as patient is not tolerating oral intake or oral medications. He is started on bicarb gtt at 100 mls/hr today by nephrology. Patient will be going for right stent placement today with urology. Infectious disease has been placed on consultation for E.Coli bacteremia and repeat blood cultures have been taken yesterday. Limited bone scan completed yesterday with evidence of bony metastases, bone scan completed to the level of head chest and portion of upper extremity, patient could not tolerate full exam. He continues with confusion and agitation, receiving morphine for pain. Given patients renal failure will adjust pain medications 0.5 to 1 mg dilaudid every 4 hours. Patient continues on IV ceftriaxone 2 grams. Labs reviewed today showing white count 16.0, hgb 9.6, platelet count 127. Sodium today 145, potassium 4.8, BUN 105, creatinine 4.12, calcium 8.1, magnesium 1.8, AST 129, ALT 97, alk phos 125. Patient continues on 6 L hi flow cannula with saturation 92% patient does not wear home oxygen. He remains afebrile, heart rate 90, blood pressure 131/81. Review of Systems Difficult to obtain full review of systems, patient is lethargic, agitated at time of examination. He is confused. PHYSICAL EXAMINATION: GENERAL: The patient is alert and oriented x1, Confused, lethargic, agitated. HEENT: Pupils are round and equally reacting to light. EOMI. No scleral icterus. No conjunctival pallor. Normocephalic, atraumatic. No pharyngeal erythema. No thyromegaly. CARDIOVASCULAR: S1 and S2 present. No murmurs, rubs, or gallops. PULMONARY: Chest is diminished. ABDOMEN: Soft, Abdominal tenderness diffuse, nondistended, normoactive bowel sounds. No palpable organomegaly. MUSCULOSKELETAL: No joint swelling or deformity. EXTREMITIES: No cyanosis, clubbing, or pedal edema. NEUROLOGICAL: Gross neurological examination did not reveal any focal deficits. Diffuse generalized weakness SKIN: No rashes. Assessment and plan Assessment Urinary tract infection with sepsis possible pyelonephritis with E.Coli and also E. Coli bacteremia patient currently on IV ceftriaxone and repeat blood cultures pending Sepsis, POA with lactic acidosis, leukocytosis Obstructive uropathy with evidence for obstructive renal stone Acute renal injury secondary to above Troponin leak from sepsis acute coronary syndrome ruled out Hypernatremia, on bicarb gtt Elevated D-Dimer with low probability pulmonary embolism found on pulmonary p erfusion imaging Non anion gap metabolic acidosis History prostate cancer with evidence for new bone metastasis found on imaging Elevated Transaminases with cholelisthiasis no evidence for acute cholecystitis on imaging Chronic kidney disease History AAA with imaging showing 7.1 cm aneurysm that has increased in size from previous Coronary artery disease post PCI Hyperlipidemia History hypertension currently hypotensive GI Prophylaxis DVT Prophylaxis Plan Plan for right stent placement with urology today Continue fluids, patient has been started on bicarb gtt Continue with IV ceftriaxone Infectious disease on consult for E.Coli UTI/Bacteremia Continues on midodrine Repeat chest xray in AM for follow up right pleural effusion Repeat labs in AM Morphine discontinued secondary to renal function Multiple consultations following including oncology, nephrology, urology Pulmonary and Cardiology have signed off Patient follows with Dr Botello in the outpatient setting who will resume care of patient tomorrow Follow up with patient and family regarding code status and discharge planning The impression and plan of care has been dictated by Nurse Leodan Garciaitionodalis as directed. Dr. Xenia MD I have performed a history and physical examination and medical decision making of this patient, discussed the same with the dictator, and agree with the dictators assessment and plan as written, documented as a scribe. Based on total visit time, I have performed more than 50% of this visit. Objective - Vital Signs Vital signs: Vital Signs Temp 97.8 F 01/06/22 11:06 Pulse 90 01/06/22 13:05 Resp 18 01/06/22 13:05 BP 131/81 01/06/22 13:05 Pulse Ox 92 L 01/06/22 13:05 FiO2 Intake & Output 01/05/22 01/06/22 01/06/22 18:59 06:59 18:59 Intake Total 550 875 Output Total 225 140 53 Balance 325 735 -53 Intake: Intake, IV Titration 550 875 Amount Sodium Chloride 0.45% 1, 500 875 000 ml @ 125 mls/hr IV . Q8H CAROLYN Rx#:[id number] cefTRIAXone 2 gm In 50 Sodium Chloride 0.9% 50 ml @ 100 mls/hr IVPB Q24HR CAROLYN Rx#:[id number] Oral 0 Output: Urine 225 140 50 Straight 140 Stool 3 Other: Voiding Method Indwelling Catheter Indwelling Catheter Indwelling Catheter - Labs CBC & Chem 7: 01/06/22 08:32 01/06/22 08:32 Labs: Abnormal Lab Results - Last 24 Hours (Table) 01/05/22 01/06/22 01/06/22 Range/Units 08:43 08:32 08:32 WBC 16.0 H (3.8-10.6) k/uL RBC 3.10 L (4.30-5.90) m/uL Hgb 9.6 L (13.0-17.5) gm/dL Hct 32.2 L (39.0-53.0) % MCV 103.8 H (80.0-100.0) fL MCHC 30.0 L (31.0-37.0) g/dL Plt Count 127 L (150-450) k/uL Chloride 117 H (98-107) mmol/L Carbon Dioxide 14 L (22-30) mmol/L BUN 105 H* (9-20) mg/dL Creatinine 4.12 H (0.66-1.25) mg/dL Glucose 47 L* (74-99) mg/dL POC Glucose (mg/dL) (70-110) mg/dL Calcium 8.1 L (8.4-10.2) mg/dL AST 129 H (17-59) U/L ALT 97 H (4-49) U/L Total Protein 4.6 L (6.3-8.2) g/dL Albumin 2.3 L (3.5-5.0) g/dL Procalcitonin 16.40 H (0.02-0.09) ng/mL 01/06/22 01/06/22 01/06/22 Range/Units 10:37 10:50 11:03 WBC (3.8-10.6) k/uL RBC (4.30-5.90) m/uL Hgb (13.0-17.5) gm/dL Hct (39.0-53.0) % MCV (80.0-100.0) fL MCHC (31.0-37.0) g/dL Plt Count (150-450) k/uL Chloride (98-107) mmol/L Carbon Dioxide (22-30) mmol/L BUN (9-20) mg/dL Creatinine (0.66-1.25) mg/dL Glucose (74-99) mg/dL POC Glucose (mg/dL) 45 L 125 H 132 H (70-110) mg/dL Calcium (8.4-10.2) mg/dL AST (17-59) U/L ALT (4-49) U/L Total Protein (6.3-8.2) g/dL Albumin (3.5-5.0) g/dL Procalcitonin (0.02-0.09) ng/mL Microbiology - Last 24 Hours (Table) 01/05/22 11:07 Blood Culture - Preliminary Blood No Growth after 24 hours Assessment and Plan Time with Patient: Greater than 30
[2022-01-06 15:15] VITALS: TEMP 97
[2022-01-06] MEDS ORDERED: PHENYLEPHRINE 40 MG in SODIUM CHLORIDE 0.9% 250 ML IV SCH (15:15)
[2022-01-06] MEDS ORDERED: SODIUM BICARB 8.4% 50 ML VIAL (1 MEQ/ML) IV ONE ×2 (15:35→15:36)
[2022-01-06] MEDS ORDERED: MORPHINE SULFATE 4 MG/ML SYRINGE IV PRN (15:46)
[2022-01-06] MEDS ORDERED: MORPHINE SULFATE 2 MG/ML SYRINGE IV PRN (15:46)
[2022-01-06] MEDS ORDERED: ATROPINE OPHTH SOLN 1% 5ML BTL SUBLINGUAL PRN (15:46)
[2022-01-06] MEDS ORDERED: LORazepam 2 MG/ML INJ IV PRN (15:46)
[2022-01-06] MEDS ORDERED: ACETAMINOPHEN SUPPOSITORY 650 MG SUPP RECTAL PRN (15:46)
[2022-01-06] MEDS ORDERED: MORPHINE SULFATE (100 MG/2 ML) 100 MG in SODIUM CHLORIDE 0.9% 100 ML IV SCH (16:00)
[2022-01-06] MEDS ORDERED: SCOPOLAMINE 1 MG/72 HR PATCH TRANSDERM SCH (16:00)
--- NOTE | 2022-01-06 16:01 | XR ---
EXAMINATION TYPE: XR chest 1V portable DATE OF EXAM: 01/06/2022 COMPARISON: 01/04/2022 INDICATION: Prior abnormal TECHNIQUE: Single frontal view of the chest is obtained. FINDINGS: The heart size is normal. The pulmonary vasculature is normal. Mild left lower lobe infiltrate is present. This is improving over the interval. A small right pleura l effusion remains present. IMPRESSION: 1. Improving left lower lobe infiltrate. 2. Stable right pleural effusion
[2022-01-06 16:15] VITALS: BP 129/71; PULSE 88; RESP 14
[2022-01-06] MEDS ORDERED: LORazepam 1 MG/0.5 ML VIAL IV PRN (17:10)
--- NOTE | 2022-01-06 23:03 | P.DS ---
Providers Date of admission: 01/01/22 14:24 Attending physician: Rod Gonzalez MD Primary care physician: Stated None Hospital Course: Diagnosis Urinary tract infection with sepsis possible pyelonephritis with E.Coli and also E. Coli bacteremia patient currently on IV ceftriaxone and repeat blood cultures pending Sepsis, POA with lactic acidosis, leukocytosis Obstructive uropathy with evidence for obstructive renal stone Acute renal injury secondary to above Troponin leak from sepsis acute coronary syndrome ruled out Hypernatremia, on bicarb gtt Elevated D-Dimer with low probability pulmonary embolism found on pulmonary perfusion imaging Non anion gap metabolic acidosis History prostate cancer with evidence for new bone metastasis found on imaging Elevated Transaminases with cholelisthiasis no evidence for acute cholecystitis on imaging Chronic kidney disease History AAA with imaging showing 7.1 cm aneurysm that has increased in size from previous Coronary artery disease post PCI Hyperlipidemia History hypertension currently hypotensive GI Prophylaxis DVT Prophylaxis Patient on 01/06/2022 at 1901 with family at bedside. He had been placed on comfort care orders. Hospice had been consulted. Hospital Course This is an 81 year old male who is admitted for generalized weakness and UTI with sepsis and found to have E. Coli UTI and also E. Coli bacteremia. Patient has past medical history significant for hypertension and chronic diarrhea. He was brought to the hospital by EMS. Patient also had troponin elevation on admission. Presenting lab data includes a white count 6.7, hemoglobin 9.7, hematocrit 32.4, and platelet count 174,000. PT 14.7 INR 1.4. Sodium 144, potassium 5.6, chlorides 116, CO2 20, BUN 79, creatinine 3.30. Lactic acid was 2.6. Troponin was 0.330. N-terminal proBNP is 17,300. Magnesium 1.5. AST 117 , ALT 96. Urine is yellow and cloudy. Blood small positive. Leukocyte esterase was large positive. There was greater than 182 WBCs, and many WBC clumps, and many bacteria. Testing for coronavirus was negative. Chest x-ray was consistent with mild fluid overload. Patient was admitted to the hospital with consults placed to pulmonary, cardiology. Patient had echocardiogram completed showing normal LV, severely dilated right ventricle, severe pulmonary hypertension, moderate tricuspid regurgitation. Creatinine had increased to 3.69 and nephrology was consulted. Patient had abdomen ultrasound which shows similar bilateral hydronephrosis from 07/23/20 CT scan, and also there eis abdominal aortic aneurysm which appears similar to prior 2020 exam, there are bilateral nonobstructing calculi. Patient also had D Dimer done which was positive at 17. He was requiring 6 L of high flow nasal cannula which patient does not wear oxygen at home. Prior to admission he was mostly ambulatory alert and oriented. Pulmonary perfusion imaging completed which shows large matching defects, no ventilation perfusion mismatch, low to intermediate probability of of pulmonary embolism and findings are consistent with severe bilateral airway disease. Urology was placed on consultation for bilateral hydronephrosis, who recommended for feldman insertion and repeat PSA level, as well as bone scan. Patient was diagnosed with prostate cancer in 2020 and decided against treatment at that time. Oncology is also placed on consultation. There is concern for metastatic disease with evidence for new sclerotic and lytic bone lesions at the level of L2. Patient dose have an enlarging right pleural effusion on chest xray. He had follow up abdominal pelvis CT yesterday which shows mild bilateral hydronephrosis with evidence for obstructive 4 mm stone at the ureterovesical junction and urology planned for stent placement on 01/06/2022. There is also findings of circumferential wall thickening of the sigmoid colon and descending colon with concern for colitis and perinephric inflammatory changes correlating for ascending infection/pyelonephritis. Sodium had remained elevated at 148 he was continued on normal saline, and was changed to 0.45 normal saline . Patient attempted to undergo bone scan and was unable to complete entire exam. There is evidence of bony metastases, bone scan completed to the level of head chest and portion of upper extremity. Patient was found to have E.Coli UTI and also E.Coli bacteremia and had continued on IV ceftriaxone this admission and infectious disease was consulted for review and further recommendations. He was then placed on sodium bicarbonate gtt. Patient went to the OR on 01/06/22 for ureteral stent placement. Upon arrival to PACU per medical record patient was on BIPAP at 100% with oral airway in place, and had phenylephrine gtt infusing for hypotension. Pulmonary hoop coiling machine operator services to PACU to assess patient prior to transfer to intensive care unit. Earlier that day patients family had discussed possible hospice but at that time had wished to proceed with stent placement with hopeful improvement in patients mentation and overall condition, unders tanding the overall prognosis. During that conversation, patients daughter had disclosed that patient does follow with Dr Botello in the primary care office but had not been seen in the office recently that he has been mostly house bound as of lately. Code status was requested to be adressed. Patient was on Bipap 100% at that time and RN called provider requesting DRN/hospice and comfort care orders which were placed at the request of family. Patient was brought back to unit and started on comfort care medications including morphine gtt. Patient on 01/06/2022 at 1901 with family at bedside. 01/06/2022 Most recent labs showing white count 18.4, hgb 11.0, platelt count 149, neutrophils 16.7, sodium 148, potassium 4.9, chloride 118, CO2 19, BUN 103, creatinine 3.67, glucose 78, calcium 8.5. AST 121, ALT 111, alk phos 132, total protein 5.4, albumin 2.7. Total PSA resulted at greater than 150. Repeat procalcitonin 16.40. Temp 97, heart rate 88, blood pressure 129/71, 97% oxygena tion on 100% Bipap. Thank you for allowing us to participate in the care of this patient. The impression and plan of care has been dictated by Katie Srivastava, Nurse Practitioner as directed. Dr. Xenia MD I have performed a history and physical examination and medical decision making of this patient, discussed the same with the dictator, and agree with the dictators assessment and plan as written, documented as a scribe. Based on total visit time, I have performed more than 50% of this visit. Plan - Discharge Summary Discharge Rx Participant: No New Discharge Prescriptions: No Action lisinopriL [Zestril] 20 mg PO DAILY Atorvastatin [Lipitor] 80 mg PO DAILY Tamsulosin HCl [Flomax] 0.4 mg PO BID atenoloL 25 mg PO DAILY HYDROcodone/APAP 5-325MG [[place] 5-325] 1 tab PO TID PRN PRN Reason: Pain Aspirin EC [Ecotrin Low Dose] 81 mg PO DAILY Dutasteride 0.5 mg PO DAILY Cyclobenzaprine [Flexeril] 10 mg PO HS PRN PRN Reason: Muscle Pain Discharge Medication List Atorvastatin [Lipitor] 80 mg PO DAILY 09/08/17 [History] Tamsulosin HCl [Flomax] 0.4 mg PO BID 09/08/17 [History] atenoloL 25 mg PO DAILY 09/08/17 [History] lisinopriL [Zestril] 20 mg PO DAILY 09/08/17 [History] Aspirin EC [Ecotrin Low Dose] 81 mg PO DAILY 01/01/22 [History] Cyclobenzaprine [Flexeril] 10 mg PO HS PRN 01/01/22 [History] Dutasteride 0.5 mg PO DAILY 01/01/22 [History] HYDROcodone/APAP 5-325MG [[place] 5-325] 1 tab PO TID PRN 01/01/22 [History] Follow up Appointment(s)/Referral(s): Jeremiah Villalta MD [STAFF PHYSICIAN] - 1 Week None,Stated [Primary Care Provider] - 1-2 days
--- NOTE | 2022-01-07 09:47 | P.OP ---
Date of Procedure: 01/07/22 Preoperative Diagnosis: Bilateral hydronephrosis, right-sided ureteral stone Postoperative Diagnosis: Same Procedure(s) Performed: Cystoscopy, right stent insertion Implants: 6-Fijian by 28 cm stent in the right ureter Anesthesia: COREY Surgeon: Kvng Bartholomew Estimated Blood Loss (ml): 5 Pathology: none sent Condition: stable Disposition: PACU Indications for Procedure: This is an 81-year-old male admitted to the hospital with UTI and bactremia, underwent a CT abdomen and pelvis that showed evidence of a 4 mm right-sided ureteral stone causing hydronephrosis. Of note patient has chronic bilateral hydronephrosis. Discussed with the patient and the family given the fact that he has a obstructing right ureteral stone and UTI recommend proceeding stent insertion. No he's been also having worsening renal function, discussed also proceed with bilateral retrograde with a possibility of left stent insertion. Risk and benefit were discussed with the patient in detail. is aware of this also. Of note patient has history of metastatic prostate cancer, unoperable aortic aneurysm. She was having worsening mental status and pain during the hospital admission. Family wanted to proceed with stent insertion assess if patient's clinical status will improve. Operative Findings: Heavily trickling and bladder, trigone was distorted, unable to identify the left ureteral orifice Description of Procedure: Patient brought to the operating room, general anesthesia was induced. He was prepped and draped in sterile fashion and placed in dorsal lithotomy position. Cystoscopy fitted with a 22-Fijian sheath was inserted per urethra. Cystoscopy was performed which showed a heavily trabeculated bladder, distortion of the trigone. Additionally had an enlarged prostate with intravesical medial lobe. I attempted to identify the right ureteral orifice, there was difficulty finding the ureteral orifice due to the trigone distortion. I was eventually able to intubate the ureteral orifice with a sensor wire, the wire was advanced into the kidney. Of note patient had a torturous right ureter, there was a complete looping of the right proximal ureter. I attempted to straighten the ureter using this wire, but was not able to. Next a 6-Fijian by 28 cm stent was passed over the wire, the proximal curl was visualized on fluoroscopy in the location of the UPJ while distal curl was seen in the bladder. There was a hydronephrotic drip. Attention was carried to the left ureteral orifice, attempted to identify the ureteral orifice but was unsuccessful. At this time the bladder was emptied, 18-Fijian Marc was placed with return of clear urine. Patient tolerated procedure well was taken to recovery stable condition.
--- NOTE | 2022-01-07 22:39 | CDI ---
Documentation Clarification Form Date: 01/07/2022 10:27:12 PM From: Rachele Hill Admit Date: 01/01/2022 02:24:00 PM Patient Name: David Soto Visit Number: [id number] Discharge Date: 01/06/2022 07:01:00 PM ATTENTION: The Clinical Documentation Specialists (CDI) and [facility] Coding Staff appreciate your assistance in clarifying documentation. Please respond to the clarification below the line at the bottom and electronically sign. The CDI & [facility] Coding staff will review the response and follow-up if needed. Please note: Queries are made part of the Legal Health Record. If you have any questions, please contact the author of this message via ITS. Dr. Rod Gonzalez Unspecified CKD is documented Consult 01/02/22. Additional clarification regarding the stage of CKD is requested. History/Risk Factors: 81 yo M, UTI, sepsis, Lactic acidosis, Hypotension, volume depletion, HUMBERTO on CKD, Miguel hydronephrosis, prostate ca w bone mets Clinical Indicators: BUN 79 H (9-20) mg/dL Creatinine 3.30 H (0.66-1.25) mg/dL Est GFR (CKD-EPI) AfAm 19 (>60 ml/min/1.73 sqM) Est GFR (CKD-EPI) NonAf 17 (>60 ml/min/1.73 sqM) Treatment: Switch IV fluids to IV bicarb. Patientis nota candidate forrenal replacement therapygiven his underlying metastatic cancer. Please clarify the stage of the CKD, if known: [ ] CKD Stage 1 (GFR > 90) [ ] CKD Stage 2 (GFR 60-89) [ ] CKD Stage 3 (GFR 30-59) [ ] CKD Stage 3a (GFR 45-59) [ ] CKD Stage 3b (GFR 30-44) [ * ] CKD Stage 4 (GFR 15-29) [ ] CKD Stage 5 (GFR <15) [ ] ESRD [ ] Other, please specify [ ] Unable to determine KASSANDRAD
--- NOTE | 2022-01-18 13:12 | CDI ---
Documentation Clarification Form Date: 01/18/2022 12:24:02 PM From: Barbara Portillo RN, CCDS Email: [email or web address] Admit Date: 01/01/2022 02:24:00 PM Patient Name: David Soto Visit Number: [id number] Discharge Date: 01/06/2022 07:01:00 PM ATTENTION: The Clinical Documentation Specialists (CDI) and [facility] Coding Staff appreciate your assistance in clarifying documentation. Please respond to the clarification below the line at the bottom and electronically sign. The CDI & [facility] Coding staff will review the response and follow-up if needed. Please note: Queries are made part of the Legal Health Record. If you have any questions, please contact the author of this message via ITS. Dr. Rod Gonzalez Your patient had confusion, agitation and altered mental status. Based on this information and the findings below, is there an additional diagnosis that is clinically appropriate for this patient? Patient history/risk factors: Prostate cancer with bone mets, HTN. Admitted with UTI with sepsis and possible pyelonephritis with E.Coli. Patient found to have obstructive uropathy with obstructive renal stones. HUMBERTO on CKD. Clinical Indicators: 01/01 UA: cloudy, blood, WBC>182, mucus, bacteria. 01/02 Procalcitonin 33.10 01/04 labs: WBC 18.9, Na 147, Cr 3.88 ED: altered mental status 01/06 IM: He continues with confusion and agitation, receiving morphine for pain. Given patients renal failure will adjust pain medications 0.5 to 1 mg dilaudid every 4 hours. Patient continues on IV ceftriaxone 2 grams. Difficult to obtain full review of systems, patient is lethargic, agitated at time of examination. He is confused. The patient is alert and oriented x1, confused, lethargic, and agitated. 01/06 Nephrology: Patient is lethargic, confused. Bone scan shows evidence of bony mets. Treatment: 01/01 IV Ceftriaxone 1gm x1 then 2gm QD. Supplemental oxygen. IV pain meds dosage adjustment. IVF's 1L bolus on 01/01, 1L bolus on 01/02. IVF's 0.45 NS @125/hr and IV Bicarbonate on 01/06. Ureteral stent placement on 01/06. Is there an additional diagnosis that is clinically appropriate for this patient? [ ] Metabolic encephalopathy [ ] Toxic encephalopathy [x ] Other, please specify [ ] Unable to determine Toxic Metabolic Encephalopathy MTDD
--- NOTE | 2022-01-18 13:42 | CDI ---
Documentation Clarification Form Date: 01/18/2022 01:14:29 PM From: Barbara Portillo RN, CCDS Email: [email or web address] Admit Date: 01/01/2022 02:24:00 PM Patient Name: David Soto Visit Number: [id number] Discharge Date: 01/06/2022 07:01:00 PM ATTENTION: The Clinical Documentation Specialists (CDI) and [facility] Coding Staff appreciate your assistance in clarifying documentation. Please respond to the clarification below the line at the bottom and electronically sign. The CDI & [facility] Coding staff will review the response and follow-up if needed. Please note: Queries are made part of the Legal Health Record. If you have any questions, please contact the author of this message via ITS. Dr. Rod Gonzalez Your patient required supplemental oxygen during admission and before expiring. Based on this information and the findings below, is there an additional diagnosis that is clinically appropriate for this patient? Patient history/risk factors: Prostate cancer with bone mets. HTN. Admitted with UTI with sepsis and possible pyelonephritis with E.Coli. Patient found to have obstructive uropathy with obstructive renal stones. HUMBERTO on CKD. Clinical Indicators: 01/01 pulse ox 85% room air, 01/02 pulse ox 86% on room air, 01/03 pulse ox 91% on 3LNC 01/01 CXR: New BL pleural effusions and central opacities favoring edema over multifocal infiltrates. Suspect fluid overload. 01/03 pulmonary perfusion imaging: severe BL airway disease. Low to intermediate probability of PE. 01/04 CXR: enlarging right pleural effusion. Suspected developing left lower lobe airspace disease. 01/04 ABG's: pH 7.31, pCO2 30, Po2 136, HCO3 15 01/06 Nursing Note: "guppy breathing" 01/06 IM: Patient continues on 6 L hi flow cannula with saturation 92%, patient does not wear home oxygen. He remains afebrile, heart rate 90, blood pressure 131/81. 01/06 DS: He was requiring 6 L of high flow nasal cannula which patient does not wear oxygen at home. Treatment: Supplemental O2 2-6L nasal cannula to high flow cannula to bipap. A/A Q4 prn. Is there an additional diagnosis that is clinically appropriate for this patient? [ x] Acute hypoxic respiratory failure [ ] Other, please specify [ ] Unable to determine MTDD
== END 2022-01-06 19:01 | disposition expired | DRG 853 ==
LOC: EC 09:23 → 3SCARD 14:24
PROVIDERS: ADMIT Internal Medicine; ATTEND Internal Medicine
PROC: 5A0945A Assistance with Respiratory Ventilation, 24-96 Consecutive Hours, High Flow/Velocity Cannula (ICD-10-PCS; 2022-01-05)
PROC: 3E033XZ Introduction of Vasopressor into Peripheral Vein, Percutaneous Approach (ICD-10-PCS; 2022-01-06)
PROC: 5A09357 Assistance with Respiratory Ventilation, Less than 24 Consecutive Hours, Continuous Positive Airway Pressure (ICD-10-PCS; 2022-01-06)
PROC: 0T768DZ Dilation of Right Ureter with Intraluminal Device, Via Natural or Artificial Opening Endoscopic (ICD-10-PCS; principal; 2022-01-06 12:45)
DX: A41.50 Gram-negative sepsis, unspecified (principal); G92.8 Other toxic encephalopathy; J96.01 Acute respiratory failure with hypoxia; C79.51 Secondary malignant neoplasm of bone; N13.6 Pyonephrosis; J98.11 Atelectasis; J90 Pleural effusion, not elsewhere classified; I5A Non-ischemic myocardial injury (non-traumatic); E87.2 Acidosis; E87.0 Hyperosmolality and hypernatremia; N17.8 Other acute kidney failure; N18.4 Chronic kidney disease, stage 4 (severe); R31.0 Gross hematuria; K80.20 Calculus of gallbladder without cholecystitis without obstruction; I71.4 Abdominal aortic aneurysm, without rupture; I27.20 Pulmonary hypertension, unspecified; I07.1 Rheumatic tricuspid insufficiency; C61 Malignant neoplasm of prostate; I13.10 Hypertensive heart and chronic kidney disease without heart failure, with stage 1 through stage 4 chronic kidney disease, or unspecified chronic kidney disease; B96.20 Unspecified Escherichia coli [E. coli] as the cause of diseases classified elsewhere; Z51.5 Encounter for palliative care; Z66 Do not resuscitate; I95.9 Hypotension, unspecified; E87.8 Other disorders of electrolyte and fluid balance, not elsewhere classified; Z20.822 Contact with and (suspected) exposure to COVID-19; E78.5 Hyperlipidemia, unspecified; K52.9 Noninfective gastroenteritis and colitis, unspecified; E16.2 Hypoglycemia, unspecified; E87.70 Fluid overload, unspecified; I25.10 Atherosclerotic heart disease of native coronary artery without angina pectoris; R33.9 Retention of urine, unspecified; E86.9 Volume depletion, unspecified; N40.1 Benign prostatic hyperplasia with lower urinary tract symptoms; R39.12 Poor urinary stream; R74.01 Elevation of levels of liver transaminase levels; R41.0 Disorientation, unspecified; R45.1 Restlessness and agitation; R01.1 Cardiac murmur, unspecified; N32.89 Other specified disorders of bladder; Z87.891 Personal history of nicotine dependence; Z95.5 Presence of coronary angioplasty implant and graft; Z85.828 Personal history of other malignant neoplasm of skin; Z80.8 Family history of malignant neoplasm of other organs or systems; Z79.899 Other long term (current) drug therapy; Z79.82 Long term (current) use of aspirin
CPT/HCPCS: 36415; 36600; 51798; 71045; 71046; 74150; 74176; 76770; 78300; 78582; 80048; 80053; 80061; 81001; 82533; 82805; 83605; 83735; 83880; 84145; 84153; 84484; 85025; 85027; 85379; 85610; 85730; 87040; 87077; 87086; 87186; 87635; 93005; 93306; 94640; 94660; 94760